=== PATIENT | female | born 1950 | race Caucasian/White ===

== ENCOUNTER 2018-04-28 17:20 | Inpatient (IN) | payer MEDICARE, BC ==
--- NOTE | 2018-04-28 18:48 | ED ---
Extremity Problem HPI - General Chief complaint: Extremity Problem,Nontraumatic Stated complaint: Feet swelling Time Seen by Provider: 04/28/18 17:47 Source: patient Mode of arrival: ambulatory Limitations: no limitations - History of Present Illness Initial comments: 68-year-old female patient with past medical history significant for oxygen dependent COPD, hypertension, and rheumatoid arthritis, presents to the emergency department today for evaluation of bilateral lower extremity edema. Patient states that she has had trouble with swelling for quite some time however over the last 2-3 days it has gotten much worse. She denies any weeping or wounds to her legs. She denies any calf pain. States she has also had an increase in weakness, she was unable to get up from her chair this afternoon and had to crawl to the couch. 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 De La Vega who instructed her to present to the emergency department for admission. Patient did take 20 mg of Lasix prior to arrival. Patient states she's also had increase in shortness of breath. She denies any cough or congestion. She denies any fever or chills. Patient denies any recent rash, chest pain, abdominal pain, nausea, vomiting, diarrhea, constipation, back pain, numbness, tingling, dizziness, hematuria, dysuria, urinary urgency, urinary frequency, headache, visual changes, or any other complaints. - Related Data Home Medications Medication Instructions Recorded Confirmed Carvedilol [Coreg] 12.5 mg PO BID 08/12/14 04/28/18 HYDROcodone/APAP 5-325MG [[place] 1 tab PO QID 08/24/15 04/28/18 5-325] Spironolactone-Hctz 25-25Mg 1 tab PO DAILY 08/24/15 04/28/18 [Aldactazide 25-25 MG] Furosemide [Lasix] 20 mg PO DAILY PRN 11/22/15 04/28/18 Albuterol Nebulized [Ventolin 2.5 mg INHALATION RT-BID 01/18/16 04/28/18 Nebulized] Albuterol Sulfate [Proair Hfa] 2 puff INHALATION RT-QID PRN 01/18/16 04/28/18 Budesonide [Pulmicort] 0.5 mg INHALATION RT-BID 01/18/16 04/28/18 Cholecalciferol [Vitamin D3] 2,000 unit PO DAILY 01/18/16 04/28/18 Cyanocobalamin [Vitamin B-12] 1,000 mcg PO DAILY 01/18/16 04/28/18 Formoterol Fumarate [Perforomist] 20 mcg INHALATION RT-BID 01/18/16 04/28/18 Mucinex Fast-Max D M 1 dose PO QID PRN 01/18/16 04/28/18 Tiotropium 18 Mcg/Puff [Spiriva] 1 cap INHALATION RT-DAILY 01/18/16 04/28/18 Theophylline 24 Hour [Andi-24] 300 mg PO DAILY 05/12/16 04/28/18 Ipratropium-Albuterol Nebulize 3 ml INHALATION RT-BID PRN 04/28/18 04/28/18 [Duoneb 0.5 mg-3 mg/3 ml Soln] LORazepam [Ativan] 1 mg PO BID PRN 04/28/18 04/28/18 Metolazone [Zaroxolyn] 2.5 mg PO DAILY 04/28/18 04/28/18 Multivitamins, Thera [Multivitamin 1 tab PO DAILY 04/28/18 04/28/18 (formulary)] Tofacitinib Citrate [Xeljanz Xr] 11 mg PO DAILY 04/28/18 04/28/18 Previous Rx's Medication Instructions Recorded Ipratropium Nebulized [Atrovent 0.5 mg INHALATION RT-QID #120 nebu 08/21/14 Nebulized] Gabapentin [Neurontin] 300 mg PO TID cap 05/18/15 Potassium Chloride ER [K-Dur 20] 20 meq PO DAILY tab.er.prt 05/18/15 Pravastatin Sodium [Pravachol] 40 mg PO HS tab 05/18/15 Allergies Allergy/AdvReac Type Severity Reaction Status Date / Time benazepril HCl AdvReac Confusion Verified 05/11/16 20:31 [From Lotensin] morphine AdvReac Nausea & Verified 05/11/16 20:31 Vomiting Review of Systems ROS Statement: Those systems with pertinent positive or pertinent negative responses have been documented in the HPI. ROS Other: All systems not noted in ROS Statement are negative. Past Medical History Past Medical History: COPD, Hyperlipidemia, Hypertension, Osteoarthritis (OA), Rheumatoid Arthritis (RA) Additional Past Medical History / Comment(s): home o2 2 liters n/c, pt stated was told by not walk > 25 ft without her o2 on.past broke rt wrist, catatracts natalie, bronchitis, emphysema, skin cancer lt upper arm History of Any Multi-Drug Resistant Organisms: None Reported Past Surgical History: Appendectomy, Back Surgery, Section, Tubal Ligation Additional Past Surgical History / Comment(s): colonoscopy. natalie breast bx-neg, microlarygoscopy x3, back fusion w/hardware, natalie bunionectomy,skin ca removed lt upper arm ,hammer toe sx has screw in great toe,rt hand joint replacment to index finger and fusions to index and 4th finger, lt hand thumb joint replaced and fusion to first 2 finger tips. orif rt wrist has plate screw. Past Anesthesia/Blood Transfusion Reactions: No Reported Reaction Past Psychological History: No Psychological Hx Reported Smoking Status: Former smoker Past Alcohol Use History: None Reported Past Drug Use History: None Reported - Past Family History Mother Additional Family Medical History / Comment(s): aterscolerotic disease; Father Additional Family Medical History / Comment(s): of car accident Sister(s) Additional Family Medical History / Comment(s): breast cancer in 2013 with remission General Exam Limitations: no limitations General appearance: alert, in no apparent distress, other (Physical well- developed, well-nourished elderly female patient in no acute distress. Vital signs upon presentation are temperature 98.6F, pulse 88, respirations 18, blood pressure 157/94, pulse ox 97% on room air.) Eye exam: Present: normal appearance, PERRL, EOMI. Absent: scleral icterus, conjunctival injection, periorbital swelling ENT exam: Present: normal exam, normal oropharynx, mucous membranes moist Respiratory exam: Present: normal lung sounds bilaterally. Absent: respiratory distress, wheezes, rales, rhonchi, stridor Cardiovascular Exam: Present: regular rate, normal rhythm, normal heart sounds. Absent: systolic murmur, diastolic murmur, rubs, gallop, clicks GI/Abdominal exam: Present: soft, normal bowel sounds. Absent: distended, tenderness, guarding, rebound, rigid Neurological exam: Present: alert, oriented X3, CN II-XII intact Psychiatric exam: Present: normal affect, normal mood Skin exam: Present: warm, dry, intact, normal color. Absent: rash Expanded 1 - Stage I pressure ulcer, non-blanchable erythema to bilateral medial buttocks. Course Vital Signs 04/28/18 04/28/18 04/28/18 17:25 19:29 20:46 Temperature 98.6 F Pulse Rate 88 74 76 Respiratory 18 18 Rate Blood Pressure 157/94 169/102 O2 Sat by Pulse 97 98 Oximetry 04/28/18 21:00 Temperature Pulse Rate 78 Respiratory Rate Blood Pressure O2 Sat by Pulse Oximetry Medical Decision Making - Medical Decision Making 68-year-old female patient presented to the emergency department today for evaluation of increased lower extremity edema and increasing dyspnea. Physical examination did reveal 4+ pitting edema to the bilateral lower extremities and feet. Patient does have ecchymosis to the right lower leg and foot. Patient denies injury. Denies any calf pain. Patient is afebrile with no signs of cellulitis. Labs reviewed and are relatively unremarkable. Patient was sent in by Dr. Bauer in for admission. My attending Dr. Bean did discuss the case with Dr. Santamaria who accepts admission. We'll give patient 40 mg of Lasix IV push now and start her on 40 mg twice daily by mouth. Legs up and wrapped with Neel wraps. Also of note patient does have presence of a stage I pressure ulcer to the bilateral medial buttocks present on admission. - Lab Data Result diagrams: 04/28/18 18:57 04/28/18 18:57 Lab Results 04/28/18 04/28/18 04/28/18 Range/Units 18:57 18:57 18:57 WBC 9.5 (3.8-10.6) k/uL RBC 4.08 (3.80-5.40) m/uL Hgb 13.0 (11.4-16.0) gm/dL Hct 40.1 (34.0-46.0) % MCV 98.1 (80.0-100.0) fL MCH 31.8 (25.0-35.0) pg MCHC 32.4 (31.0-37.0) g/dL RDW 14.6 (11.5-15.5) % Plt Count 264 (150-450) k/uL Neutrophils % 76 % Lymphocytes % 14 % Monocytes % 8 % Eosinophils % 0 % Basophils % 0 % Neutrophils # 7.2 (1.3-7.7) k/uL Lymphocytes # 1.3 (1.0-4.8) k/uL Monocytes # 0.7 (0-1.0) k/uL Eosinophils # 0.0 (0-0.7) k/uL Basophils # 0.0 (0-0.2) k/uL ESR 16 (0-20) mm/hr PT (9.0-12.0) sec INR (<1.2) APTT (22.0-30.0) sec Sodium 138 (137-145) mmol/L Potassium 4.2 (3.5-5.1) mmol/L Chloride 96 L (98-107) mmol/L Carbon Dioxide 36 H (22-30) mmol/L Anion Gap 6 mmol/L BUN 18 H (7-17) mg/dL Creatinine 0.56 (0.52-1.04) mg/dL Est GFR (CKD-EPI)AfAm >90 (>60 ml/min/1.73 sqM) Est GFR (CKD-EPI)NonAf >90 (>60 ml/min/1.73 sqM) Glucose 91 (74-99) mg/dL Calcium 10.1 (8.4-10.2) mg/dL Total Bilirubin 1.0 (0.2-1.3) mg/dL AST 32 (14-36) U/L ALT 40 (9-52) U/L Alkaline Phosphatase 58 (38-126) U/L Total Creatine Kinase 44 (30-135) U/L CK-MB (CK-2) 1.5 (0.0-2.4) ng/mL CK-MB (CK-2) Rel Index 3.4 Troponin I <0.012 (0.000-0.034) ng/mL NT-Pro-B Natriuret Pep pg/mL Total Protein 6.2 L (6.3-8.2) g/dL Albumin 3.7 (3.5-5.0) g/dL Urine Color Urine Appearance (Clear) Urine pH (5.0-8.0) Ur Specific Merrill (1.001-1.035) Urine Protein (Negative) Urine Glucose (UA) (Negative) Urine Ketones (Negative) Urine Blood (Negative) Urine Nitrite (Negative) Urine Bilirubin (Negative) Urine Urobilinogen (<2.0) mg/dL Ur Leukocyte Esterase (Negative) 04/28/18 04/28/18 04/28/18 Range/Units 18:57 18:57 18:57 WBC (3.8-10.6) k/uL RBC (3.80-5.40) m/uL Hgb (11.4-16.0) gm/dL Hct (34.0-46.0) % MCV (80.0-100.0) fL MCH (25.0-35.0) pg MCHC (31.0-37.0) g/dL RDW (11.5-15.5) % Plt Count (150-450) k/uL Neutrophils % % Lymphocytes % % Monocytes % % Eosinophils % % Basophils % % Neutrophils # (1.3-7.7) k/uL Lymphocytes # (1.0-4.8) k/uL Monocytes # (0-1.0) k/uL Eosinophils # (0-0.7) k/uL Basophils # (0-0.2) k/uL ESR (0-20) mm/hr PT 9.6 (9.0-12.0) sec INR 1.0 (<1.2) APTT 21.5 L (22.0-30.0) sec Sodium (137-145) mmol/L Potassium (3.5-5.1) mmol/L Chloride (98-107) mmol/L Carbon Dioxide (22-30) mmol/L Anion Gap mmol/L BUN (7-17) mg/dL Creatinine (0.52-1.04) mg/dL Est GFR (CKD-EPI)AfAm (>60 ml/min/1.73 sqM) Est GFR (CKD-EPI)NonAf (>60 ml/min/1.73 sqM) Glucose (74-99) mg/dL Calcium (8.4-10.2) mg/dL Total Bilirubin (0.2-1.3) mg/dL AST (14-36) U/L ALT (9-52) U/L Alkaline Phosphatase (38-126) U/L Total Creatine Kinase (30-135) U/L CK-MB (CK-2) (0.0-2.4) ng/mL CK-MB (CK-2) Rel Index Troponin I (0.000-0.034) ng/mL NT-Pro-B Natriuret Pep 231 pg/mL Total Protein (6.3-8.2) g/dL Albumin (3.5-5.0) g/dL Urine Color Light Yellow Urine Appearance Clear (Clear) Urine pH 7.0 (5.0-8.0) Ur Specific Merrill 1.006 (1.001-1.035) Urine Protein Negative (Negative) Urine Glucose (UA) Negative (Negative) Urine Ketones Negative (Negative) Urine Blood Negative (Negative) Urine Nitrite Negative (Negative) Urine Bilirubin Negative (Negative) Urine Urobilinogen <2.0 (<2.0) mg/dL Ur Leukocyte Esterase Negative (Negative) - EKG Data EKG Comments: EKG obtained at 1910 shows normal sinus rhythm with a ventricular rate of 69, MD interval 140, QRS duration 78, QT 374, QTC 400. No evidence of ST elevation or depression. - Radiology Data Radiology results: report reviewed, image reviewed Two-view x-ray of the chest obtained. There is no heart failure nor confluent pneumonic infiltrate. There is linear density at the right lung base. There are chest leads. Impression by Dr. Owen shows no atelectasis at the right lung base compared to old exam. No heart failure. Disposition Clinical Impression: Dyspnea, Bilateral lower extremity edema Disposition: ADMITTED IP TO THIS HOSP Condition: Serious Decision to Admit Reason: Admit from EC Decision Date: 04/28/18 Decision Time: 21:33
--- NOTE | 2018-04-28 19:30 | XR ---
EXAMINATION TYPE: XR chest 2V DATE OF EXAM: 04/28/2018 COMPARISON: 05/27/2017 HISTORY: Weakness TECHNIQUE: Frontal and lateral views of the chest are obtained. FINDINGS: There is no heart failure nor confluent pneumonic infiltrate. There is linear density at t he right lung base. There are chest leads. IMPRESSION: There is new atelectasis at the right lung base compared to old exam. No heart failure.
[2018-04-28 19:32] LABS: Basophils % (A) 0 %; Eosinophils % (A) 0 %; HCT 40.1 % (34.0-46.0); Lymphocytes # (A) 1.3 k/uL (1.0-4.8); Lymphocytes % (A) 14 %; MCH 31.8 pg (25.0-35.0); MCHC 32.4 g/dL (31.0-37.0); MCV 98.1 fL (80.0-100.0); Mean Platelet Volume 6.5; Monocytes # (A) 0.7 k/uL (0-1.0); Monocytes % (A) 8 %; Neutrophils # (A) 7.2 k/uL (1.3-7.7); Neutrophils % (A) 76 %; Platelet Count 264 k/uL (150-450); RBC 4.08 m/uL (3.80-5.40); RDW 14.6 % (11.5-15.5); WBC 9.5 k/uL (3.8-10.6)
[2018-04-28 19:38] LABS: Appearance,Urine Clear (Clear); Bilirubin,Urine Negative (Negative); Blood,Urine Negative (Negative); Color,Urine Light Yellow; Glucose,Urine (UA) Negative (Negative); Ketones,Urine Negative (Negative); Leukocyte Esterase,Urine Negative (Negative); Nitrite,Urine Negative (Negative); Protein,Urine Negative (Negative); Specific Gravity,Urine 1.006 (1.001-1.035); Urobilinogen,Urine <2.0 mg/dL (<2.0)
[2018-04-28 19:44] LABS: ALT 40 U/L (9-52); AST 32 U/L (14-36); Albumin 3.7 g/dL (3.5-5.0); Alkaline Phosphatase 58 U/L (38-126); Anion Gap 6 mmol/L; Blood Urea Nitrogen 18 mg/dL (7-17); Calcium 10.1 mg/dL (8.4-10.2); Carbon Dioxide 36 mmol/L (22-30); Chloride 96 mmol/L (98-107); Glucose 91 mg/dL (74-99); Potassium 4.2 mmol/L (3.5-5.1); Sodium 138 mmol/L (137-145); Total Protein 6.2 g/dL (6.3-8.2)
[2018-04-28 19:48] LABS: Creatine Kinase 44 U/L (30-135)
[2018-04-28 20:01] LABS: Creatine Kinase MB 1.5 ng/mL (0.0-2.4); Troponin I <0.012 ng/mL (0.000-0.034)
[2018-04-28] MEDS ORDERED: IPRATROPIUM-ALBUTEROL 3 ML NEB INHALATION STA (20:02)
[2018-04-28 20:04] LABS: Prothrombin Time 9.6 sec (9.0-12.0)
[2018-04-28 20:09] LABS: Partial Thromboplastin Time 21.5 sec (22.0-30.0)
[2018-04-28 20:29] LABS: Erythrocyte Sedimentation Rate 16 mm/hr (0-20)
[2018-04-28] MEDS ORDERED: NALOXONE 0.4 MG/ML 1 ML VIAL IV PRN (21:14)
[2018-04-28] MEDS ORDERED: guaiFENesin-DM 600/30MG 1 EACH TAB.ER.12H PO PRN (21:15)
[2018-04-28] MEDS: SODIUM CHLORIDE 0.9% 1,000 ML IV SCH (21:29)
[2018-04-28] MEDS ORDERED: GABAPENTIN 300 MG CAP PO SCH (22:00)
[2018-04-28] MEDS ORDERED: HYDROcodone/APAP 5-325MG 1 EACH TAB PO SCH (22:00)
[2018-04-28] MEDS ORDERED: FUROSEMIDE 10 MG/ML 4 ML VIAL IV STA (22:08)
[2018-04-29 00:02] VITALS: BMI 23.5
[2018-04-29] MEDS: GABAPENTIN 100 MG CAP PO SCH ×4 (00:10→20:52)
[2018-04-29] MEDS: IPRATROPIUM-ALBUTEROL 3 ML NEB INHALATION PRN ×5 (00:24→19:02)
[2018-04-29] MEDS ORDERED: ALBUTEROL NEBULIZED 2.5 MG/3 ML INHALATION SCH (08:00)
[2018-04-29] MEDS ORDERED: NON-FORMULARY DRUG (Tiotropium 18 Mcg/Puff 1 CAP) INHALATION SCH (08:00)
[2018-04-29] MEDS: HYDROcodone/APAP 5-325MG 1 EACH TAB PO PRN ×4 (08:00→20:52)
[2018-04-29] MEDS: CARVEDILOL 12.5 MG TAB PO SCH ×2 (08:01→18:18)
[2018-04-29] MEDS: FORMOTEROL FUMARATE 20 MCG/2 ML NEBU INHALATION SCH ×2 (08:43→19:02)
[2018-04-29] MEDS: BUDESONIDE 0.5 MG/2 ML NEBU INHALATION SCH ×2 (08:43→19:02)
[2018-04-29] MEDS: IPRATROPIUM 0.5 MG/2.5 ML NEBU INHALATION SCH ×4 (08:43→19:15)
[2018-04-29] MEDS ORDERED: FUROSEMIDE 40 MG TAB PO SCH (09:00)
[2018-04-29] MEDS ORDERED: GABAPENTIN 100 MG CAP PO SCH (09:00)
[2018-04-29] MEDS: FUROSEMIDE 10 MG/ML 4 ML VIAL IV SCH ×2 (10:09→20:52)
[2018-04-29] MEDS: THEOPHYLLINE 24 HOUR 300 MG CAP.ER.24H PO SCH (10:10)
[2018-04-29] MEDS: METOLAZONE 2.5 MG TAB PO SCH (10:10)
[2018-04-29] MEDS: POTASSIUM CHLORIDE ER 20 MEQ TAB.ER PO SCH (10:10)
[2018-04-29] MEDS: SPIRONOLACTONE-HCTZ 25-25MG 1 EACH TAB PO SCH (10:10)
[2018-04-29] MEDS: TOFACITINIB CITRATE 11 MG PO SCH (11:53)
[2018-04-29] MEDS: MULTIVITAMINS, THERA 1 EACH TAB PO SCH (12:11)
[2018-04-29] MEDS: CYANOCOBALAMIN 500 MCG TAB PO SCH (12:11)
[2018-04-29] MEDS: CHOLECALCIFEROL 1,000 UNIT TAB PO SCH (12:11)
--- NOTE | 2018-04-29 14:40 | P.CNPUL ---
History of Present Illness Consult date: 04/29/18 Requesting physician: Josh Santamaria Reason for consult: dyspnea Chief complaint: Shortness of breath with lower extremity edema. History of present illness: This is a very pleasant 68-year-old female patient who follows with Dr. Santamaria as her primary care physician. She has a history of hyperlipidemia, hypertension, rheumatoid arthritis. She also has a history of severe oxygen dependent chronic obstructive pulmonary disease and follows with Dr. De La Vega in our office for the same. She has been maintained on Pulmicort and Perforomist inhalations, Spiriva, albuterol. Plan oxygen at 2 L/m per nasal cannula. She presented to the office yesterday as a regular appointment. Prior to that she been having ongoing issues with swelling in her lower edema lower extremities more so in her feet and ankles. She knew she had an appointment so she did not seek attention earlier. Upon arrival she had significant edema and weeping with evidence of cellulitis. Her breathing had been about the same. No excessive wheezing or chest tightness. She had been on Lasix and Zaroxolyn but had run out of her medications recently. She is seen today in consultation on the regular medical floor. She is awake and alert in no acute distress. She is having ongoing issues with lower extremity edema. They're now Neel wraps applied. Edema slightly improved. Chest x-ray shows new atelectasis of the right lung base. She's been initiated on Lasix 40 mg IV push every 12 hours. White count 9.5. Hemoglobin 13.0. Creatinine 0.56. Urinalysis negative. Review of Systems Constitutional: Reports chronic pain, Reports fatigue, Reports poor appetite, Reports weakness Eyes: bilateral decreased vision Ears: bilateral: decreased hearing Ears, nose, mouth and throat: Denies headache, Denies sore throat Cardiovascular: Reports dyspnea on exertion, Reports leg edema, Reports shortness of breath Respiratory: Reports dyspnea, Reports home oxygen Gastrointestinal: Denies abdominal pain, Denies diarrhea, Denies nausea, Denies vomiting Genitourinary: Denies dysuria, Denies hematuria Musculoskeletal: Reports gait dysfunction, Reports limitation of motion, Reports loss of height, Reports low back pain Musculoskeletal: bilateral: ankle pain, ankle swelling Integumentary: Reports color changes Neurological: Reports balance difficulties, Reports gait dysfunction, Reports weakness Psychiatric: Reports anxiety Endocrine: Denies fatigue, Denies weight change Hematologic/Lymphatic: Reports as per HPI Allergic/Immunologic: Reports as per HPI Past Medical History Past Medical History: COPD, Hyperlipidemia, Hypertension, Osteoarthritis (OA), Rheumatoid Arthritis (RA) Additional Past Medical History / Comment(s): home o2 2 liters n/c, pt stated was told by not walk > 25 ft without her o2 on.past broke rt wrist, catatracts natalie, bronchitis, emphysema, skin cancer lt upper arm History of Any Multi-Drug Resistant Organisms: None Reported Past Surgical History: Appendectomy, Back Surgery, Section, Tubal Ligation Additional Past Surgical History / Comment(s): colonoscopy. natalie breast bx-neg, microlarygoscopy x3, back fusion w/hardware, natalie bunionectomy,skin ca removed lt upper arm ,hammer toe sx has screw in great toe,rt hand joint replacment to index finger and fusions to index and 4th finger, lt hand thumb joint replaced and fusion to first 2 finger tips. orif rt wrist has plate screw. 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 Smoking Status: Former smoker Past Alcohol Use History: None Reported Additional Past Alcohol Use History / Comment(s): quit smoking , smoked > 40 years Past Drug Use History: None Reported - Past Family History Mother Additional Family Medical History / Comment(s): aterscolerotic disease; Father Additional Family Medical History / Comment(s): of car accident Sister(s) Additional Family Medical History / Comment(s): breast cancer in 2012 with remission Medications and Allergies Home Medications Medication Instructions Recorded Confirmed Type Carvedilol [Coreg] 12.5 mg PO BID 08/12/14 04/28/18 History Ipratropium Nebulized [Atrovent 0.5 mg INHALATION RT-QID #120 nebu 08/21/1405/06 Rx Nebulized] Gabapentin [Neurontin] 300 mg PO TID cap 05/18/15 04/28/18 Rx Potassium Chloride ER [K-Dur 20] 20 meq PO DAILY tab.er.prt 05/18/15 04/28/18 Rx Pravastatin Sodium [Pravachol] 40 mg PO HS tab 05/18/15 04/28/18 Rx HYDROcodone/APAP 5-325MG [[place] 1 tab PO QID 08/24/15 04/28/18 History 5-325] Spironolactone-Hctz 25-25Mg 1 tab PO DAILY 08/24/15 04/28/18 History [Aldactazide 25-25 MG] Furosemide [Lasix] 20 mg PO DAILY PRN 11/22/15 04/28/18 History Albuterol Nebulized [Ventolin 2.5 mg INHALATION RT-BID 01/18/16 04/28/18 History Nebulized] Albuterol Sulfate [Proair Hfa] 2 puff INHALATION RT-QID PRN 01/18/16 04/28/18 History Budesonide [Pulmicort] 0.5 mg INHALATION RT-BID 01/18/16 04/28/18 History Cholecalciferol [Vitamin D3] 2,000 unit PO DAILY 01/18/16 04/28/18 History Cyanocobalamin [Vitamin B-12] 1,000 mcg PO DAILY 01/18/16 04/28/18 History Formoterol Fumarate [Perforomist] 20 mcg INHALATION RT-BID 01/18/16 04/28/18 History Mucinex Fast-Max D M 1 dose PO QID PRN 01/18/16 04/28/18 History Tiotropium 18 Mcg/Puff [Spiriva] 1 cap INHALATION RT-DAILY 01/18/16 04/28/18 History Theophylline 24 Hour [Andi-24] 300 mg PO DAILY 05/12/16 04/28/18 History Ipratropium-Albuterol Nebulize 3 ml INHALATION RT-BID PRN 04/28/18 04/28/18 History [Duoneb 0.5 mg-3 mg/3 ml Soln] LORazepam [Ativan] 1 mg PO BID PRN 04/28/18 04/28/18 History Metolazone [Zaroxolyn] 2.5 mg PO DAILY 04/28/18 04/28/18 History Multivitamins, Thera [Multivitamin 1 tab PO DAILY 04/28/18 04/28/18 History (formulary)] Tofacitinib Citrate [Xeljanz Xr] 11 mg PO DAILY 04/28/18 04/28/18 History Allergies Allergy/AdvReac Type Severity Reaction Status Date / Time benazepril HCl AdvReac Confusion Verified 05/11/16 20:31 [From Lotensin] morphine AdvReac Nausea & Verified 05/11/16 20:31 Vomiting Physical Exam Vitals: Vital Signs Temp Pulse Pulse Resp BP BP Pulse Ox 04/29/18 12:20 80 04/29/18 12:03 76 04/29/18 10:09 71 112/77 04/29/18 09:22 84 04/29/18 09:00 80 04/29/18 08:43 80 04/29/18 08:05 98.2 F 71 20 120/83 96 04/29/18 04:21 84 04/29/18 04:05 84 04/29/18 03:24 77 20 04/29/18 00:39 84 04/29/18 00:25 76 04/28/18 23:12 98.6 F 04/28/18 23:00 98.4 F 77 20 149/89 98 04/28/18 22:29 103 H 20 175/95 95 04/28/18 21:00 78 04/28/18 20:46 76 04/28/18 19:29 74 18 169/102 98 04/28/18 17:25 98.6 F 88 18 157/94 97 Intake and Output 04/28/18 04/29/18 04/29/18 22:59 06:59 14:59 Intake Total 120 Output Total 720 2400 1750 Balance -720 2400 -1630 Intake: Oral 120 Output: Urine 720 2400 1750 Other: Voiding Method Bedside Commode Bedside Commode # Voids 5 5 # Bowel Movements 1 Weight 58.06 kg 56.5 kg - Constitutional General appearance: cooperative, mild distress, thin - EENT Eyes: EOMI, PERRLA ENT: hard of hearing Ears: bilateral: normal - Neck Neck: normal ROM Carotids: bilateral: upstroke normal Thyroid: bilateral: normal size - Respiratory Respiratory: bilateral: CTA, diminished - Cardiovascular Rhythm: regular Heart sounds: normal: S1, S2 - Gastrointestinal General gastrointestinal: normal bowel sounds - Genitourinary Voiding without difficulty - Integumentary Integumentary: cellulitis - Neurologic Neurologic: CNII-XII intact - Musculoskeletal Musculoskeletal: generalized weakness - Psychiatric Psychiatric: A&O x's 3, appropriate affect, intact judgment & insight Results - Laboratory Findings CBC and BMP: 04/28/18 18:57 04/28/18 18:57 PT/INR, D-dimer PT 9.6 sec (9.0-12.0) 04/28/18 18:57 INR 1.0 (<1.2) 04/28/18 18:57 Abnormal lab findings: Abnormal Labs 04/28/18 04/28/18 18:57 18:57 APTT 21.5 L Chloride 96 L Carbon Dioxide 36 H BUN 18 H Total Protein 6.2 L - Diagnostic Findings Chest x-ray: image reviewed Assessment and Plan Assessment: Impression: #1 Lower extremity peripheral edema with suspected cellulitis suspect secondary to acute exacerbation of diastolic congestive heart failure/cor pulmonale secondary to severe chronic obstructive pulmonary disease and chronic hypoxic respiratory failure. #2 Severe, oxygen dependent chronic obstructive pulmonary disease, currently inactive and stable. #3 History of chronic tobacco dependence. #4 Rheumatoid arthritis. #5 Anxiety disorder. #6 Hyperlipidemia. #7 Hypertension. Plan: The patient was seen and evaluated by Dr. Bueno. Chest x-ray was reviewed. We 'll go ahead and obtain an echocardiogram to determine if any right or left ventricular dysfunction. Continue IV diuretics. Add cefazolin for suspected cellulitis. Doppler of the lower extremities. Continue with Neel wraps to the bilateral lower extremities. Heparin for DVT prophylaxis. We will continue to monitor and make further recommendations based on her clinical status. I, the cosigning physician, performed a history & physical examination of the patient. Lungs sounds are clear, diminished. Maintaining good O2 saturations in the 90s on 2 L/m per nasal cannula. I discussed the assessment and plan of care with my nurse practitioner, Chula Varma. I attest to the above note as dictated by her. Time with Patient: Greater than 30
[2018-04-29] MEDS ORDERED: HEPARIN SODIUM,PORCINE 5,000 UNIT/ML 1 ML VIAL SQ SCH (16:00)
[2018-04-29] MEDS: ceFAZolin 1,000 MG in DEXTROSE/WATER 1 50ML.BAG IVPB SCH (16:09)
--- NOTE | 2018-04-29 17:15 | US ---
EXAMINATION TYPE: US venous doppler duplex LE DATE OF EXAM: 04/29/2018 5:02 PM COMPARISON: NONE CLINICAL HISTORY: edema. SIDE PERFORMED: Bilateral TECHNIQUE: The lower extremity deep venous system is examined utilizing real time linear array sonog didi with graded compression, doppler sonography and color-flow sonography. VESSELS IMAGED: External Iliac Vein (EIV) Common Femoral Vein Deep Femoral Vein Greater Saphenous Vein * Femoral Vein Popliteal Vein Small Saphenous Vein * Proximal Calf Veins (* superficial vessels) Right Leg: Negative for DVT. Positive for SVT in the small saphenous vein Left Leg: Negative for DVT IMPRESSION: There is limited superficial venous thrombus in the short saphenous vein. No evidence of deep venous thrombosis in both legs.
[2018-04-29] MEDS: methylPREDNISolone SOD SUCCI 40 MG/ML 1 ML VIAL IV SCH ×2 (18:18→23:20)
[2018-04-29] MEDS: ONDANSETRON 4 MG/2 ML VIAL IVP PRN ×2 (18:18→23:20)
--- NOTE | 2018-04-29 18:43 | ECHOF ---
Referral Reason:chf MEASUREMENTS -------- HEIGHT: 152.4 cm WEIGHT: 56.3 kg BP: IVSd: 1.1 cm (0.6 - 1.1) LVIDd: 3.3 cm (3.9 - 5.3) LVPWd: 1.0 cm (0.6 - 1.1) IVSs: 1.6 cm LVIDs: 2.8 cm LVPWs: 1.6 cm LA Diam: 3.6 cm (2.7 - 3.8) LAESV Index (A-L): 25.01 ml/m Ao Diam: 2.8 cm (2.0 - 3.7) AV Cusp: 0.8 cm (1.5 - 2.6) LA Diam: 3.9 cm (2.7 - 3.8) MV EXCURSION: 17.354 mm (> 18.000) MV EF SLOPE: 126 mm/s (70 - 150) EPSS: 0.6 cm MV E Kalyan: 0.45 m/s MV A Kalyan: 1.11 m/s MV E/A Ratio: 0.41 RAP: 5.00 mmHg RVSP: 17.44 mmHg FINDINGS -------- Sinus rhythm. This was a technically adequate study. LV size, wall thickness and systolic function are normal, with an EF greater than 55%. The left la tricular size is normal. The right ventricle is normal in size. The left atrial size is normal. The right atrial size is normal. There is mild aortic valve sclerosis. There is no evidence of aortic regurgitation. Mild mitral annular calcification present. Mild mitral regurgitation is present. Mild tricuspid regurgitation present. There is no evidence of pulmonary hypertension. The right v entricular systolic pressure, as measured by Doppler, is 17.44mmHg. Trace/mild (physiologic) pulmonic regurgitation. The aortic root size is normal. There is no pericardial effusion. CONCLUSIONS -------- 1. LV size, wall thickness and systolic function are normal, with an EF greater than 55%. 2. The left ventricular size is normal. 3. The right ventricle is normal in size. 4. The left atrial size is normal. 5. The right atrial size is normal. 6. There is mild aortic valve sclerosis. 7. Mild mitral annular calcification present. 8. Mild mitral regurgitation is present. 9. Mild tricuspid regurgitation present. 10. There is no evidence of pulmonary hypertension. 11. The right ventricular systolic pressure, as measured by Doppler, is 17.44mmHg. 12. Trace/mild (physiologic) pulmonic regurgitation. 13. The aortic root size is normal. 14. There is no pericardial effusion. GR[employer] POLISHER: Kayy Shukla RDCS
[2018-04-29] MEDS ORDERED: DILTIAZEM DRIP BOLUS FROM BAG 1 MG SOLN IV ONE (19:35)
[2018-04-29] MEDS ORDERED: DILTIAZEM 50 MG in SODIUM CHLORIDE 0.9% 40 ML IV SCH (19:45)
[2018-04-29] MEDS: PRAVASTATIN SODIUM 40 MG TAB PO SCH (21:34)
[2018-04-29] MEDS: APIXABAN 5 MG TAB PO SCH (21:59)
[2018-04-29] MEDS: SODIUM CHLORIDE 0.9% 1,000 ML IV SCH (22:00)
--- NOTE | 2018-04-29 23:47 | HP ---
HISTORY AND PHYSICAL ATTENDING PHYSICIAN: Dr. Ladarius Santamaria. CHIEF COMPLAINT: Shortness of breath and tachycardia. HISTORY OF PRESENT ILLNESS: This 68-year-old lady was admitted to the hospital under observation because of increased edema of the lower legs. The hourly caregiver saw the patient and decided to put the patient on steroids and antibiotics. The patient has no true evidence of bronchitis. The patient later today did become more tachycardic. On telemetry, she has at times episodes of multifocal atrial tachycardia and other times atrial fibrillation. The patient in view of this is transferred to telemetry, started on Eliquis and Cardizem drip. The patient was doing seen regarding this. She denied any chest pain, headaches. The patient, at the time of my evaluation, just finished having an updraft RF. Lung flows reveals significant decrease generalized airflow. Otherwise vitals stable. For details of past medical history, social history, surgical history, family medical history, present medications is as dictated earlier H and P for observation. PHYSICAL EXAMINATION: Chronically appearing 68-year-old who appears older than stated age, with Cushingoid features. Vital signs reveals temperature 97.3, pulse 95, respirations 18, blood pressure 130/69. The patient, when seen, her heart rate was 198 at times. On telemetry, she is reported to have caught up to 150. REVIEW OF SYSTEMS: Neuro: Denies any headaches or dizziness. Psych: Some anxiety. Cardiovascular: Denies chest pain. Respiratory: Present complaint of shortness of breath, chronic cough. No hemoptysis. GI no nausea, vomiting, abdominal pain, diarrhea. no dysuria, hematuria, urgency, frequency. Extremities: Significantly decreased edema. Constitutional: No fever or chills. PHYSICAL EXAMINATION: 68-year-old, pleasant, mildly short of breath, in otherwise no distress. HEENT: Normocephalic. Neck no JVD. Chest generalized decreased air flow. No wheezing or rhonchi. Cardiac: Distant cough. S1, S2 with no gallop. Systolic murmur 2/6 left sternal border. Irregularly, irregular rhythm. ABDOMEN: Soft. No palpable masses. Bowel sounds normal. EXTREMITIES revealed edema. NEUROLOGICAL: Awake, alert, oriented, well-coordinated movements. LAB ASSESSMENT: With an echocardiogram done earlier, which reveals no evidence of any right-sided heart failure. The patient's venous duplex studies of the lower extremities reveals no evidence of DVT. ASSESSMENT: 1. Chronic obstructive pulmonary disease with exacerbation. 2. Chronic respiratory failure. 3. Edema lower extremities, probably related to steroid use and Neurontin. Poor compliance with Lasix. PLAN: Continue present medical regimen. The patient is admitted to telemetry. Anticoagulation. Patient will be placed on Cardizem drip to control heart rate. The patient's condition discussed with the patient. Prognosis is guarded. Thus, the patient is clearly at a point that she should not be living alone. She should be in a foster care setting. This is discussed with the patient. Prognosis guarded. MMODL / IJN: [id number] /
[2018-04-30] MEDS: ceFAZolin 1,000 MG in DEXTROSE/WATER 1 50ML.BAG IVPB SCH ×4 (00:04→23:36)
--- NOTE | 2018-04-30 00:26 | HP ---
HISTORY AND PHYSICAL ATTENDING PHYSICIAN: Dr. Ladarius Santamaria. CHIEF COMPLAINT: Swelling, lower legs. HISTORY OF PRESENT ILLNESS: This 68-year-old female was sent to the emergency room for admission from the pulmonary office but Dr. De La Vega because the patient was having increased edema of the lower legs. The patient has basically a history of significant COPD, stage IV. The patient has clinical evidence of cor pulmonale. Because of the significant swollen feet and legs, she is admitted to the hospital under observation. The patient was started on IV diuretics with improvement with the edema this morning. The patient, as mentioned above, has significant COPD. She is on steroids as well as she is on Neurontin for chronic pain. The patient's edema is probably contributory because of that. The patient had no fevers or chills. She had cough as usual. Denied any other worsening of symptoms of shortness of breath. PAST MEDICAL HISTORY: Significant for advanced COPD with previous history of heavy smoking. She is a nonsmoker at present. History of rheumatoid arthritis on medical therapy. The patient also has a history of hypertension. No history of any liver disease, kidney disease, ulcers, TB, hepatitis. No history of any rheumatic fever, myocardial infarction, CVA. PAST SURGICAL HISTORY: Significant for appendectomy, lumbar surgery, foot surgery, breast biopsy. SOCIAL HISTORY: Patient is . She lives alone. FAMILY MEDICAL HISTORY: The patient has a sister with degenerative arthritis. She also had an aunt with a history of carcinoma of the breast and COPD. The patient had 1 and the child was given up for adoption. PERSONAL HISTORY: Ex-smoker, heavy for many years. Alcohol none. ALLERGIES: BENAZEPRIL which causes her to have a cough. MORPHINE causes nausea and vomiting. MEDICATIONS: At present include: 1. Xeljanz 11 mg daily. 2. Multivitamins daily. 3. Zaroxolyn 2.5 mg daily. 4. Zaroxolyn 2.5 mg daily. 5. Updrafts with DuoNeb. 6. Spiriva. 7. Theophylline 24, 10 mg daily. 8. Aldactazide 25/25 one daily. 9. Pravastatin 40 mg daily. 10.Potassium 20 mEq daily. 11.Mucinex q.i.d. p.r.n. 12.Ativan 1 p.o. b.i.d. p.r.n. 13.[place] 5/325 p.r.n. q.i.d. 14.Gabapentin 300 mg t.i.d. 15.Lasix 20 mg daily, which the patient does not take daily because she has to use the bathroom quite frequently. 16.Perforomist 20 mcg inhalation b.i.d. 17.Vitamin B12 on a regular basis. 18.Vitamin D3. 19.Coreg 12.5 mg b.i.d. 20.Pulmicort updrafts b.i.d. 21.Albuterol p.r.n. 22.ProAir 2 puffs q.i.d. p.r.n. REVIEW OF SYSTEMS: NEURO: Denies any headaches or dizziness. No double vision or blurred vision. No symptoms of TIA, syncope, seizures. PSYCH: No anxiety. CARDIAC: Denies chest pain, angina, palpitations. RESPIRATORY: Chronic shortness of breath. Chronic cough. No hemoptysis. GI: No nausea, vomiting, abdominal pain, diarrhea. : No symptoms of dysuria, hematuria, urgency, frequency. EXTREMITIES: Significant edema. CONSTITUTIONAL: No fever or chills. PHYSICAL EXAMINATION: This is a 68-year-old female, appears older than stated age and appears chronically ill. She has cushingoid features. Vital signs reveal temperature 98.2, pulse 71, respirations 20, blood pressure 120/83, pulse ox 96% on 2 L. HEENT: Normocephalic. NECK: No JVD. Pupils are reactive. Nostrils are clear. Oral cavity is moist. EARS: No drainage. NECK: No JVD or carotid bruits. CHEST: Increased percussion note bilaterally with generalized decrease of air flow. Occasional expiratory wheeze. CARDIAC: Distant heart sounds. S1, S2 with no gallop. Systolic murmur 2/6 left sternal border. ABDOMEN: Protuberant, soft. Bowel sounds are active. EXTREMITIES: Pitting edema until the knee joints. The patient has no tenderness. SKIN: Evidence of ecchymosis, especially in the thigh area. NEUROLOGIC: Awake, alert, oriented x3 with well-coordinated movements. MUSCULOSKELETAL: Evidence suggestive of rheumatoid arthritis. LAB ASSESSMENT: CBC was normal. PT and INR normal. Electrolytes reveal a CO2 content of 36, BUN 18, creatinine 0.56. Hepatic function normal. Troponins negative. BNP is normal at 231. Albumin normal at 3.7. Urinalysis is unremarkable. ASSESSMENT: 1. Dependent edema of the lower extremities, multifactorial including medications with steroids and gabapentin as well as suspect underlying cor pulmonale. 2. Chronic obstructive pulmonary disease with chronic respiratory failure. 3. Hypertension. 4. Rheumatoid arthritis. PLAN: The patient is admitted to the hospital. Will be diuresed with Lasix. The patient meanwhile will be continued on present medications. Pulmonary consult. MMODL / IJN: [id number] /
[2018-04-30] MEDS: ALBUTEROL NEBULIZED 2.5 MG/3 ML INHALATION PRN ×2 (01:55→05:57)
[2018-04-30] MEDS: LORazepam 1 MG TAB PO PRN (03:21)
[2018-04-30] MEDS: HYDROcodone/APAP 5-325MG 1 EACH TAB PO PRN ×5 (05:05→20:22)
[2018-04-30 06:08] LABS: Glucose,Whole Blood 182 mg/dL (75-99)
[2018-04-30] MEDS: CARVEDILOL 12.5 MG TAB PO SCH (06:09)
[2018-04-30] MEDS: ONDANSETRON 4 MG/2 ML VIAL IVP PRN ×4 (06:27→23:36)
[2018-04-30 06:34] LABS: Anion Gap 13 mmol/L; Blood Urea Nitrogen 21 mg/dL (7-17); Calcium 10.3 mg/dL (8.4-10.2); Carbon Dioxide 36 mmol/L (22-30); Chloride 81 mmol/L (98-107); Glucose 180 mg/dL (74-99); Magnesium 1.1 mg/dL (1.6-2.3); Sodium 130 mmol/L (137-145)
[2018-04-30] MEDS ORDERED: Magnesium Replacement Protocol 1 EACH MISC MISCELLANE PRN (06:44)
[2018-04-30] MEDS ORDERED: Potassium Replacement Protocol 1 EACH MISC MISCELLANE PRN (06:44)
[2018-04-30] MEDS: INSULIN ASPART 100 UNIT/ML 1 ML 10 ML VIAL SQ SCH ×4 (06:49→21:29)
[2018-04-30] MEDS ORDERED: POTASSIUM CHLORIDE ER 20 MEQ TAB.ER PO SCH (07:00)
[2018-04-30] MEDS: MAGNESIUM SULFATE-D5W PMX 1 GM in DEXTROSE/WATER 1 100ML.BAG IVPB SCH ×2 (08:17→14:06)
[2018-04-30] MEDS: POTASSIUM CHLORIDE ER 20 MEQ TAB.ER PO SCH (08:41)
[2018-04-30] MEDS: METOLAZONE 2.5 MG TAB PO SCH (08:42)
[2018-04-30] MEDS: THEOPHYLLINE 24 HOUR 300 MG CAP.ER.24H PO SCH (08:42)
[2018-04-30] MEDS: methylPREDNISolone SOD SUCCI 40 MG/ML 1 ML VIAL IV SCH ×3 (08:42→23:36)
[2018-04-30] MEDS: GABAPENTIN 100 MG CAP PO SCH ×3 (08:42→20:26)
[2018-04-30] MEDS: FUROSEMIDE 10 MG/ML 4 ML VIAL IV SCH (08:43)
[2018-04-30] MEDS: SPIRONOLACTONE-HCTZ 25-25MG 1 EACH TAB PO SCH (08:43)
[2018-04-30] MEDS: APIXABAN 5 MG TAB PO SCH ×2 (08:44→20:23)
[2018-04-30] MEDS: BUDESONIDE 0.5 MG/2 ML NEBU INHALATION SCH ×2 (08:53→20:33)
[2018-04-30] MEDS: FORMOTEROL FUMARATE 20 MCG/2 ML NEBU INHALATION SCH ×2 (08:53→20:33)
[2018-04-30] MEDS: IPRATROPIUM-ALBUTEROL 3 ML NEB INHALATION PRN ×4 (08:53→20:34)
[2018-04-30] MEDS: IPRATROPIUM 0.5 MG/2.5 ML NEBU INHALATION SCH ×4 (08:53→20:36)
[2018-04-30] MEDS: TOFACITINIB CITRATE 11 MG PO SCH (11:01)
[2018-04-30 11:53] LABS: Glucose,Whole Blood 212 mg/dL (75-99)
[2018-04-30] MEDS: MULTIVITAMINS, THERA 1 EACH TAB PO SCH (13:57)
[2018-04-30] MEDS: CHOLECALCIFEROL 1,000 UNIT TAB PO SCH (13:57)
[2018-04-30] MEDS: CYANOCOBALAMIN 500 MCG TAB PO SCH (13:57)
--- NOTE | 2018-04-30 14:19 | P.PN ---
Subjective Progress Note Date: 04/30/18 Principal diagnosis: This is a very pleasant 68-year-old female patient who follows with Dr. Santamaria as her primary care physician. She has a history of hyperlipidemia, hypertension, rheumatoid arthritis. She also has a history of severe oxygen dependent chronic obstructive pulmonary disease and follows with Dr. De La Vega in our office for the same. She has been maintained on Pulmicort and Perforomist inhalations, Spiriva, albuterol. Plan oxygen at 2 L/m per nasal cannula. She presented to the office yesterday as a regular appointment. Prior to that she been having ongoing issues with swelling in her lower edema lower extremities more so in her feet and ankles. She knew she had an appointment so she did not seek attention earlier. Upon arrival she had significant edema and weeping with evidence of cellulitis. Her breathing had been about the same. No excessive wheezing or chest tightness. She had been on Lasix and Zaroxolyn but had run out of her medications recently. She is seen today in consultation on the regular medical floor. She is awake and alert in no acute distress. She is having ongoing issues with lower extremity edema. They're now Neel wraps applied. Edema slightly improved. Chest x-ray shows new atelectasis of the right lung base. She's been initiated on Lasix 40 mg IV push every 12 hours. White count 9.5. Hemoglobin 13.0. Creatinine 0.56. Urinalysis negative. The patient is seen again today 04/30/2018 in follow-up on the selective care unit. She was brought up here from the regular medical floor with concerns regarding possible atrial fibrillation. 12-lead EKG reveals normal sinus rhythm. Echocardiogram reveals preserved left ventricular systolic function with ejection fraction 55%. No evidence of pulmonary hypertension. Normal right ventricle. Dopplers of the lower extremity were negative for DVT. Really , she is resting fairly comfortably in bed. She still has significant dyspnea on minimal exertion. She is maintaining good O2 saturation in the 90s on 2 L/m per nasal cannula. She is continued on DuoNeb inhalations, Pulmicort and Perforomist inhalations, IV Solu-Medrol. She remains on diuretics. She is down 3 kg. Remains in a negative balance. Peripheral edema improving. Objective - Vital Signs Vital signs: Vital Signs Temp 97.3 F L 04/30/18 03:04 Pulse 92 04/30/18 13:15 Resp 18 04/30/18 03:09 BP 127/83 04/30/18 03:04 Pulse Ox 94 L 04/30/18 03:04 Intake & Output 04/29/18 04/30/18 04/30/18 18:59 06:59 18:59 Intake Total 120 940 Output Total 2250 1550 200 Balance -2130 -1550 740 Weight 53.3 kg Intake: Oral 120 940 Output: Urine 2250 1550 200 Other: Voiding Method Bedside Commode Bedside Commode # Voids 2 2 # Bowel Movements 1 0 - Exam - Constitutional General appearance: cooperative, mild distress, thin - EENT Eyes: EOMI, PERRLA ENT: hard of hearing Ears: bilateral: normal - Neck Neck: normal ROM Carotids: bilateral: upstroke normal Thyroid: bilateral: normal size - Respiratory Respiratory: bilateral: CTA, diminished - Cardiovascular Rhythm: regular Heart sounds: normal: S1, S2 - Gastrointestinal General gastrointestinal: normal bowel sounds - Genitourinary Voiding without difficulty - Integumentary Integumentary: cellulitis - Neurologic Neurologic: CNII-XII intact - Musculoskeletal Musculoskeletal: generalized weakness - Psychiatric Psychiatric: A&O x's 3, appropriate affect, intact judgment & insight - Labs CBC & Chem 7: 04/28/18 18:57 04/30/18 05:35 Labs: Abnormal Lab Results - Last 24 Hours (Table) 04/30/18 04/30/18 04/30/18 Range/Units 05:35 06:07 11:51 Sodium 130 L (137-145) mmol/L Potassium 3.0 L (3.5-5.1) mmol/L Chloride 81 L (98-107) mmol/L Carbon Dioxide 36 H (22-30) mmol/L BUN 21 H (7-17) mg/dL Glucose 180 H (74-99) mg/dL POC Glucose (mg/dL) 182 H 212 H (75-99) mg/dL Calcium 10.3 H (8.4-10.2) mg/dL Magnesium 1.1 L (1.6-2.3) mg/dL Assessment and Plan Assessment: Impression: #1 Lower extremity peripheral edema with suspected cellulitis suspect secondary to cor pulmonale secondary to severe chronic obstructive pulmonary disease and chronic hypoxic respiratory failure. Frequent steroid and gabapentin use. Preserved left ventricular systolic function. #2 Severe, oxygen dependent chronic obstructive pulmonary disease, currently inactive and stable. #3 History of chronic tobacco dependence. #4 Rheumatoid arthritis. #5 Anxiety disorder. #6 Hyperlipidemia. #7 Hypertension. Plan: The patient was seen and evaluated by Dr. Bueno. We will continue with her COPD treatment. Continue diuretics. Continue with Neel wraps to the bilateral lower extremities. Eliquis for anticoagulation. We will continue to monitor and make further recommendations based on her clinical status. I, the cosigning physician, performed a history & physical examination of the patient. Lungs sounds are clear, diminished. Maintaining good O2 saturations in the 90s on 2 L/m per nasal cannula. I discussed the assessment and plan of care with my nurse practitioner, Chula Varma. I attest to the above note as dictated by her.
[2018-04-30] MEDS ORDERED: METOPROLOL TARTRATE 50 MG TAB PO STA (14:58)
[2018-04-30 16:33] LABS: Glucose,Whole Blood 224 mg/dL (75-99)
[2018-04-30] MEDS: SODIUM CHLORIDE 0.9% 1,000 ML IV SCH (20:23)
[2018-04-30] MEDS: PRAVASTATIN SODIUM 40 MG TAB PO SCH (20:23)
[2018-04-30 21:27] LABS: Glucose,Whole Blood 143 mg/dL (75-99)
--- NOTE | 2018-04-30 22:33 | PN ---
PROGRESS NOTE CHIEF COMPLAINT: Re-evaluation. HISTORY OF PRESENT ILLNESS: This is a 68-year-old who was admitted to the hospital because of edema. The patient has underlying history of chronic COPD. The patient really denies much respiratory worsening symptoms. She was seen by Pulmonary and has been placed on steroids and cefazolin, with no clear evidence of tracheobronchitis or pneumonia. The patient is feeling better today. The patient had a brief run of atrial fibrillation and has multiple PACs. The patient is on anticoagulation. Her edema has markedly improved with the use of IV Lasix. The patient has some Neel wraps on the lower legs. The patient looks much better today. REVIEW OF SYSTEMS: NEURO: Denies any headaches, dizziness. PSYCH: No anxiety. CARDIAC: No chest pain, angina, palpitations. RESPIRATORY: Chronic shortness of breath. Mild chronic cough. No hemoptysis. GI: No nausea, vomiting, abdominal pain, diarrhea, constipation, hematochezia, melena. : No symptoms of dysuria or hematuria. EXTREMITIES: Decreasing edema. CONSTITUTIONAL: No fever, chills. PHYSICAL EXAMINATION: Pleasant 68-year-old who appears older than her stated age. Patient has cushingoid features. Vital signs revealed temperature 97.5, pulse 105, respirations 18, pulse ox of 95% on 2 L, blood pressure 108/74. HEENT: Normocephalic. NECK: No JVD. CHEST EXAMINATION: Increased percussion noted bilaterally. Lung galeas have otherwise generalized decreased air flow. CARDIAC: Distant heart sounds, S1, S2, with no gallops. Systolic murmur 2/6, left sternal border. ABDOMEN: Soft. Bowel sounds present. Extremities revealed edema which was decreased. Neurologically awake, alert, oriented, with well-coordinated movements. LABORATORY ASSESSMENT: Electrolytes which showed a potassium of 3.0, sodium 130, CO2 content 36. BUN 21, creatinine 0.58. Glucose 150. Magnesium 1.1. ASSESSMENT: 1. Chronic obstructive pulmonary disease with exacerbation. 2. Increased edema, lower legs, multifactorial. 3. Brief run of atrial fibrillation and also some evidence suggestive of multifocal atrial tachycardia. 4. Rheumatoid arthritis. 5. Steroid hyperglycemia. PLAN: Continue present medical regimen. Patient's condition was discussed with the patient. Prognosis guarded. Will switch IV Lasix to p.o. Lasix. Meanwhile, the patient is recommended placement to a nursing facility, as I do not think this patient with stage IV COPD and suspected cor pulmonale could continue to take care of herself. MMGRACE / INESSAN: [id number] /
[2018-05-01] MEDS: LORazepam 1 MG TAB PO PRN ×3 (00:32→23:24)
[2018-05-01] MEDS: HYDROcodone/APAP 5-325MG 1 EACH TAB PO PRN ×6 (00:32→20:54)
[2018-05-01] MEDS: IPRATROPIUM-ALBUTEROL 3 ML NEB INHALATION PRN ×5 (00:44→22:18)
[2018-05-01 06:41] LABS: Glucose,Whole Blood 158 mg/dL (75-99)
[2018-05-01] MEDS: INSULIN ASPART 100 UNIT/ML 1 ML 10 ML VIAL SQ SCH ×4 (06:58→21:46)
[2018-05-01 07:19] LABS: Anion Gap 7 mmol/L; Blood Urea Nitrogen 23 mg/dL (7-17); Calcium 9.5 mg/dL (8.4-10.2); Carbon Dioxide 39 mmol/L (22-30); Chloride 85 mmol/L (98-107); Glucose 154 mg/dL (74-99); Potassium 3.1 mmol/L (3.5-5.1); Sodium 131 mmol/L (137-145)
[2018-05-01] MEDS: FORMOTEROL FUMARATE 20 MCG/2 ML NEBU INHALATION SCH ×2 (07:27→19:18)
[2018-05-01] MEDS: IPRATROPIUM 0.5 MG/2.5 ML NEBU INHALATION SCH ×4 (07:27→19:18)
[2018-05-01] MEDS: BUDESONIDE 0.5 MG/2 ML NEBU INHALATION SCH ×2 (07:27→19:18)
[2018-05-01] MEDS: ceFAZolin 1,000 MG in DEXTROSE/WATER 1 50ML.BAG IVPB SCH ×3 (08:40→23:18)
[2018-05-01] MEDS: ONDANSETRON 4 MG/2 ML VIAL IVP PRN ×3 (08:40→20:54)
[2018-05-01] MEDS: methylPREDNISolone SOD SUCCI 40 MG/ML 1 ML VIAL IV SCH (08:40)
[2018-05-01] MEDS: FUROSEMIDE 10 MG/ML 4 ML VIAL IV SCH (08:40)
[2018-05-01] MEDS: GABAPENTIN 100 MG CAP PO SCH ×3 (08:41→21:50)
[2018-05-01] MEDS: METOPROLOL TARTRATE 25 MG TAB PO SCH ×2 (08:41→21:50)
[2018-05-01] MEDS: THEOPHYLLINE 24 HOUR 300 MG CAP.ER.24H PO SCH (08:41)
[2018-05-01] MEDS: POTASSIUM CHLORIDE ER 20 MEQ TAB.ER PO SCH ×3 (08:41→11:35)
[2018-05-01] MEDS: APIXABAN 5 MG TAB PO SCH ×2 (08:41→21:50)
[2018-05-01] MEDS: METOLAZONE 2.5 MG TAB PO SCH (08:41)
[2018-05-01] MEDS: SPIRONOLACTONE-HCTZ 25-25MG 1 EACH TAB PO SCH (08:42)
[2018-05-01] MEDS: TOFACITINIB CITRATE 11 MG PO SCH (09:34)
[2018-05-01] MEDS: MAGNESIUM SULFATE-D5W PMX 1 GM in DEXTROSE/WATER 1 100ML.BAG IVPB SCH ×2 (10:20→11:39)
--- NOTE | 2018-05-01 11:04 | P.PN ---
Subjective Progress Note Date: 05/01/18 Principal diagnosis: Acute lower extremity cellulitis and severe chronic obstructive lung disease, presently inactive This is a very pleasant 68-year-old female patient who follows with Dr. Santamaria as her primary care physician. She has a history of hyperlipidemia, hypertension, rheumatoid arthritis. She also has a history of severe oxygen dependent chronic obstructive pulmonary disease and follows with Dr. De La Vega in our office for the same. She has been maintained on Pulmicort and Perforomist inhalations, Spiriva, albuterol. Plan oxygen at 2 L/m per nasal cannula. She presented to the office yesterday as a regular appointment. Prior to that she been having ongoing issues with swelling in her lower edema lower extremities more so in her feet and ankles. She knew she had an appointment so she did not seek attention earlier. Upon arrival she had significant edema and weeping with evidence of cellulitis. Her breathing had been about the same. No excessive wheezing or chest tightness. She had been on Lasix and Zaroxolyn but had run out of her medications recently. She is seen today in consultation on the regular medical floor. She is awake and alert in no acute distress. She is having ongoing issues with lower extremity edema. They're now Neel wraps applied. Edema slightly improved. Chest x-ray shows new atelectasis of the right lung base. She's been initiated on Lasix 40 mg IV push every 12 hours. White count 9.5. Hemoglobin 13.0. Creatinine 0.56. Urinalysis negative. The patient is seen again today 04/30/2018 in follow-up on the selective care unit. She was brought up here from the regular medical floor with concerns regarding possible atrial fibrillation. 12-lead EKG reveals normal sinus rhythm. Echocardiogram reveals preserved left ventricular systolic function with ejection fraction 55%. No evidence of pulmonary hypertension. Normal right ventricle. Dopplers of the lower extremity were negative for DVT. Really , she is resting fairly comfortably in bed. She still has significant dyspnea on minimal exertion. She is maintaining good O2 saturation in the 90s on 2 L/m per nasal cannula. She is continued on DuoNeb inhalations, Pulmicort and Perforomist inhalations, IV Solu-Medrol. She remains on diuretics. She is down 3 kg. Remains in a negative balance. Peripheral edema improving. Reevaluated today on 05/01/2018, patient is feeling better, swelling seems to be improving, cellulitis is also resolving, shortness of breath is chronic but basically about the same. Patient remains on 2 L nasal cannula, remains on bronchodilators, antibiotics, and steroids. Labs today reflected hyponatremia and hypokalemia being addressed by the admitting physician. Objective - Vital Signs Vital signs: Vital Signs Temp 97.2 F L 05/01/18 08:00 Pulse 124 H 05/01/18 08:00 Resp 20 05/01/18 08:00 BP 136/75 05/01/18 08:00 Pulse Ox 97 05/01/18 08:00 Intake & Output 04/30/18 05/01/18 05/01/18 18:59 06:59 18:59 Intake Total 1900 240 Output Total 490 517 6523 Balance 1200 -700 -1260 Weight 51.3 kg Intake: Oral 1900 240 Output: Urine 727 882 0899 Other: Voiding Method Bedside Commode Bedside Commode Bedside Commode # Voids 2 1 # Bowel Movements 0 - Exam Physical Exam: Revealed a 68-year-old female in no distress. Head: Atraumatic, normocephalic. HEENT:[Neck is supple.] [No neck masses.] [No thyromegaly.] [No JVD.] Chest: [Diminished breath sound bilaterally, no rhonchi and no wheezes.] Cardiac Exam: [Normal S1 and S2, no S3 gallop, no murmur.] Abdomen: [Soft, nontender, no megaly, no rebound, no guarding, normal bowel sounds.] Extremities: [No clubbing, no edema, no cyanosis.] Resolving cellulitis and erythema in both lower extremities, continues to have lower extremities edema right more so than left. Neurological Exam: [No focal neurologic deficit.] Musculoskeletal: Generalized weakness. - Labs CBC & Chem 7: 04/28/18 18:57 05/01/18 05:30 Labs: Abnormal Lab Results - Last 24 Hours (Table) 04/30/18 04/30/18 04/30/18 Range/Units 11:51 16:32 21:23 Sodium (137-145) mmol/L Potassium (3.5-5.1) mmol/L Chloride (98-107) mmol/L Carbon Dioxide (22-30) mmol/L BUN (7-17) mg/dL Glucose (74-99) mg/dL POC Glucose (mg/dL) 212 H 224 H 143 H (75-99) mg/dL 05/01/18 05/01/18 Range/Units 05:30 06:39 Sodium 131 L (137-145) mmol/L Potassium 3.1 L (3.5-5.1) mmol/L Chloride 85 L (98-107) mmol/L Carbon Dioxide 39 H (22-30) mmol/L BUN 23 H (7-17) mg/dL Glucose 154 H (74-99) mg/dL POC Glucose (mg/dL) 158 H (75-99) mg/dL Assessment and Plan Assessment: #1 Lower extremity peripheral edema with suspected cellulitis suspect secondary to cor pulmonale secondary to severe chronic obstructive pulmonary disease and chronic hypoxic respiratory failure. #2 Severe, oxygen dependent chronic obstructive pulmonary disease, currently inactive and stable. #3 History of chronic tobacco dependence. #4 Rheumatoid arthritis. #5 Anxiety disorder. #6 Hyperlipidemia. #7 Hypertension. Recommendation: Continue present meds including antibiotics, bronchodilators, diuretics, oxygen, steroids, we will cut down the steroids, patient is usually maintained on 10 mg of prednisone daily on a maintenance basis. Consider discharge planning in the next 24-48 hours Time with Patient: Less than 30
[2018-05-01] MEDS: predniSONE 20 MG TAB PO SCH (11:15)
[2018-05-01 11:21] LABS: Glucose,Whole Blood 211 mg/dL (75-99)
[2018-05-01] MEDS: CYANOCOBALAMIN 500 MCG TAB PO SCH (11:35)
[2018-05-01] MEDS: MULTIVITAMINS, THERA 1 EACH TAB PO SCH (11:35)
[2018-05-01] MEDS: CHOLECALCIFEROL 1,000 UNIT TAB PO SCH (11:35)
[2018-05-01 17:21] LABS: Glucose,Whole Blood 161 mg/dL (75-99)
--- NOTE | 2018-05-01 17:49 | PN ---
PROGRESS NOTE ATTENDING PHYSICIAN: Dr. Ladarius Santamaria. CHIEF COMPLAINT: Re-evaluation. HISTORY OF PRESENT ILLNESS: A 68-year-old female was admitted to the hospital because of increased edema. She has underlying history of significant COPD stage IV. She has also signs suggestive of cor pulmonale. Echocardiogram does not reveal significant pulmonary hypertension. The patient is feeling much better. She had a brief run of atrial fibrillation and also multiple PACs. She is in sinus rhythm at present with occasional PACs. The patient was started on Eliquis and will continue so. The patient is at high risk for DVT as she is mostly sedentary and develops significant edema lower legs. She had venous duplex studies done of the lower extremities, which did not reveal any DVT. The patient really does not have much of a cough or purulent sputum, but has been placed on cefazolin by the raw shellfish preparer. The patient has also been placed on larger doses of steroids, which should be able to be decreased. REVIEW OF SYSTEMS: NEURO: Denies any headaches, dizziness. PSYCH: No anxiety. CARDIAC: No chest pain, angina, palpitation. RESPIRATORY: Denies shortness of breath with oxygen on. Does have chronic cough with no hemoptysis and no sputum production. GI: No nausea, vomiting, abdominal pain, diarrhea. : No symptoms of dysuria, hematuria, urgency, frequency. EXTREMITIES: Left leg edema is pretty much resolved. Right leg, the patient still has some edema. NEUROLOGICALLY: Awake, alert, oriented with well-coordinated movements. LABORATORY ASSESSMENT: Sodium was 131, potassium 3.1, CO2 content was 39, BUN 23. Blood sugars 154. ASSESSMENT: 1. Chronic obstructive pulmonary disease with exacerbation. 2. Cor pulmonale. 3. Hyponatremia. 4. Hypokalemia. 5. Steroid induced hyperglycemia. 6. Rheumatoid arthritis. 7. Chronic debility. PLAN: The patient at present is stable, continue present medical regimen. Condition is improved. Plan is for patient to be placed in a nursing facility and meanwhile, continue present regimen. Decrease the Lasix to 20 mg daily. Prognosis remains guarded. MMODL / IJN: [id number] /
[2018-05-01] MEDS: SODIUM CHLORIDE 0.9% 1,000 ML IV SCH (21:02)
[2018-05-01 21:04] LABS: Glucose,Whole Blood 140 mg/dL (75-99)
[2018-05-01] MEDS: PRAVASTATIN SODIUM 40 MG TAB PO SCH (22:10)
[2018-05-02] MEDS: IPRATROPIUM-ALBUTEROL 3 ML NEB INHALATION PRN ×8 (00:21→23:52)
[2018-05-02] MEDS: HYDROcodone/APAP 5-325MG 1 EACH TAB PO PRN ×6 (00:26→23:05)
[2018-05-02] MEDS: ONDANSETRON 4 MG/2 ML VIAL IVP PRN ×3 (04:52→18:53)
[2018-05-02 05:42] LABS: Glucose,Whole Blood 117 mg/dL (75-99)
[2018-05-02 06:09] LABS: Blood Urea Nitrogen 24 mg/dL (7-17); Calcium 9.4 mg/dL (8.4-10.2); Chloride 84 mmol/L (98-107); Glucose 107 mg/dL (74-99); Potassium 3.7 mmol/L (3.5-5.1); Sodium 131 mmol/L (137-145)
[2018-05-02] MEDS: INSULIN ASPART 100 UNIT/ML 1 ML 10 ML VIAL SQ SCH ×4 (06:14→21:22)
[2018-05-02 06:18] LABS: Anion Gap 9 mmol/L; Carbon Dioxide 38 mmol/L (22-30)
[2018-05-02] MEDS: BUDESONIDE 0.5 MG/2 ML NEBU INHALATION SCH ×2 (07:24→19:41)
[2018-05-02] MEDS: FORMOTEROL FUMARATE 20 MCG/2 ML NEBU INHALATION SCH ×2 (07:24→19:41)
[2018-05-02] MEDS: IPRATROPIUM 0.5 MG/2.5 ML NEBU INHALATION SCH ×4 (07:30→19:42)
[2018-05-02] MEDS: TOFACITINIB CITRATE 11 MG PO SCH (08:45)
[2018-05-02] MEDS: predniSONE 20 MG TAB PO SCH (09:00)
[2018-05-02] MEDS ORDERED: FUROSEMIDE 10 MG/ML 2 ML VIAL IV SCH (09:00)
[2018-05-02] MEDS: POTASSIUM CHLORIDE ER 20 MEQ TAB.ER PO SCH (09:01)
[2018-05-02] MEDS: APIXABAN 5 MG TAB PO SCH ×2 (09:01→21:14)
[2018-05-02] MEDS: SPIRONOLACTONE-HCTZ 25-25MG 1 EACH TAB PO SCH (09:01)
[2018-05-02] MEDS: THEOPHYLLINE 24 HOUR 300 MG CAP.ER.24H PO SCH (09:01)
[2018-05-02] MEDS: METOLAZONE 2.5 MG TAB PO SCH (09:01)
[2018-05-02] MEDS: GABAPENTIN 100 MG CAP PO SCH ×3 (09:01→21:14)
[2018-05-02] MEDS: METOPROLOL TARTRATE 25 MG TAB PO SCH ×2 (09:01→21:14)
--- NOTE | 2018-05-02 10:14 | P.PN ---
Subjective Progress Note Date: 05/02/18 Principal diagnosis: Acute lower extremity cellulitis and severe chronic obstructive lung disease, presently inactive This is a very pleasant 68-year-old female patient who follows with Dr. Santamaria as her primary care physician. She has a history of hyperlipidemia, hypertension, rheumatoid arthritis. She also has a history of severe oxygen dependent chronic obstructive pulmonary disease and follows with Dr. De La Vega in our office for the same. She has been maintained on Pulmicort and Perforomist inhalations, Spiriva, albuterol. Plan oxygen at 2 L/m per nasal cannula. She presented to the office yesterday as a regular appointment. Prior to that she been having ongoing issues with swelling in her lower edema lower extremities more so in her feet and ankles. She knew she had an appointment so she did not seek attention earlier. Upon arrival she had significant edema and weeping with evidence of cellulitis. Her breathing had been about the same. No excessive wheezing or chest tightness. She had been on Lasix and Zaroxolyn but had run out of her medications recently. She is seen today in consultation on the regular medical floor. She is awake and alert in no acute distress. She is having ongoing issues with lower extremity edema. They're now Neel wraps applied. Edema slightly improved. Chest x-ray shows new atelectasis of the right lung base. She's been initiated on Lasix 40 mg IV push every 12 hours. White count 9.5. Hemoglobin 13.0. Creatinine 0.56. Urinalysis negative. The patient is seen again today 04/30/2018 in follow-up on the selective care unit. She was brought up here from the regular medical floor with concerns regarding possible atrial fibrillation. 12-lead EKG reveals normal sinus rhythm. Echocardiogram reveals preserved left ventricular systolic function with ejection fraction 55%. No evidence of pulmonary hypertension. Normal right ventricle. Dopplers of the lower extremity were negative for DVT. Really , she is resting fairly comfortably in bed. She still has significant dyspnea on minimal exertion. She is maintaining good O2 saturation in the 90s on 2 L/m per nasal cannula. She is continued on DuoNeb inhalations, Pulmicort and Perforomist inhalations, IV Solu-Medrol. She remains on diuretics. She is down 3 kg. Remains in a negative balance. Peripheral edema improving. Reevaluated today on 05/01/2018, patient is feeling better, swelling seems to be improving, cellulitis is also resolving, shortness of breath is chronic but basically about the same. Patient remains on 2 L nasal cannula, remains on bronchodilators, antibiotics, and steroids. Labs today reflected hyponatremia and hypokalemia being addressed by the admitting physician. Reevaluated on 05/02/2018, continues to slowly improve, cellulitis is resolving , shortness of breath is improving, patient is a bit anxious about the move to the new tolerated today. Remains on the same meds including bronchodilators, antibiotics, and she is on oral prednisone. Remains on 2 L nasal cannula. Sodium today is 131, bicarb is 38, normal renal profile noted. Objective - Vital Signs Vital signs: Vital Signs Temp 97.7 F 05/02/18 08:00 Pulse 102 H 05/02/18 08:00 Resp 22 05/02/18 08:00 BP 134/70 05/02/18 08:00 Pulse Ox 96 05/02/18 08:00 Intake & Output 05/01/18 05/02/18 05/02/18 18:59 06:59 18:59 Intake Total 684 240 Output Total 2500 750 700 Balance -1816 -750 -460 Intake: Oral 684 240 Output: Urine 2500 750 700 Other: Voiding Method Bedside Commode Bedside Commode Bedside Commode # Voids 2 - Exam Physical Exam: Revealed a 68-year-old female in no distress. Slightly anxious. Head: Atraumatic, normocephalic. HEENT:[Neck is supple.] [No neck masses.] [No thyromegaly.] [No JVD.] Chest: [Diminished breath sound bilaterally, no rhonchi and no wheezes.] Cardiac Exam: [Normal S1 and S2, no S3 gallop, no murmur.] Abdomen: [Soft, nontender, no megaly, no rebound, no guarding, normal bowel sounds.] Extremities: [No clubbing, no edema, no cyanosis.] Resolving cellulitis and erythema in both lower extremities, continues to have lower extremities edema right more so than left. But improving compared to yesterday. Neurological Exam: [No focal neurologic deficit.] Musculoskeletal: Generalized weakness. Normal range of motion, no deformities. - Labs CBC & Chem 7: 04/28/18 18:57 05/02/18 05:17 Labs: Abnormal Lab Results - Last 24 Hours (Table) 05/01/18 05/01/18 05/01/18 Range/Units 11:19 16:47 21:02 Sodium (137-145) mmol/L Chloride (98-107) mmol/L Carbon Dioxide (22-30) mmol/L BUN (7-17) mg/dL Glucose (74-99) mg/dL POC Glucose (mg/dL) 211 H 161 H 140 H (75-99) mg/dL 05/02/18 05/02/18 Range/Units 05:17 05:41 Sodium 131 L (137-145) mmol/L Chloride 84 L (98-107) mmol/L Carbon Dioxide 38 H (22-30) mmol/L BUN 24 H (7-17) mg/dL Glucose 107 H (74-99) mg/dL POC Glucose (mg/dL) 117 H (75-99) mg/dL Assessment and Plan Assessment: #1 Lower extremity peripheral edema with suspected cellulitis and cor pulmonale secondary to severe chronic obstructive pulmonary disease and chronic hypoxic respiratory failure. #2 Severe, oxygen dependent chronic obstructive pulmonary disease, currently inactive and stable. #3 History of chronic tobacco dependence. #4 Rheumatoid arthritis. #5 Anxiety disorder. #6 Hyperlipidemia. #7 Hypertension. Recommendation: Continue all present meds, patient is already on oral prednisone , remains on Lasix lower dose, consider discharge planning to a rehab facility in the next 24 hours. Follow-up on outpatient basis. Time with Patient: Less than 30
[2018-05-02] MEDS: LORazepam 1 MG TAB PO PRN ×2 (10:30→23:05)
[2018-05-02 12:01] LABS: Glucose,Whole Blood 138 mg/dL (75-99)
[2018-05-02] MEDS: ceFAZolin 1,000 MG in DEXTROSE/WATER 1 50ML.BAG IVPB SCH (12:23)
[2018-05-02] MEDS: MULTIVITAMINS, THERA 1 EACH TAB PO SCH (12:23)
[2018-05-02] MEDS: CYANOCOBALAMIN 500 MCG TAB PO SCH (12:24)
[2018-05-02] MEDS: CHOLECALCIFEROL 1,000 UNIT TAB PO SCH (12:24)
--- NOTE | 2018-05-02 12:35 | P.PN ---
Subjective Progress Note Date: 05/02/18 Principal diagnosis: COPD This 68-year-old female was admitted to the hospital after being referred with a budget engineer from the office because of patient having significant edema and lower extremities. Patient had not been taking the diuretics. The diuretic makes it a get to the bathroom too often and thus to save her energy and breathing she was not taking medication on regular basis. Following admission patient was placed on IV diuretics with significant diuresis and loss of edema. She was seen by budget engineer. Patient is no significant sputum production she was placed on cefazolin and steroids. Since there is no evidence of any respiratory infection however discontinue the cefazolin. Patient's steroids have been decreased down to 20 mg daily. Patient's edema was related to both use of steroids she has cushingoid features as well as gabapentin. The gabapentin dose has been decreased. Patient feels improved she denies much symptoms. Her breathing is as usual has a chronic cough with no change denies chest pain. Eating better and she is feeling better. This patient has significantly advanced COPD stage IV with associated debility. Have advised patient on rehab as well as long-term placement to an C type of setting as she needs help with most of the ADLs REVIEW OF SYSTEMS: Neuro: Denies any headaches dizziness. Psych: Denies anxiety depression feels oriented. Cardiac: Denies chest pain and angina palpitations. Respiratory: Chronic shortness of breath and cough. GI: Denies nausea vomiting or abdominal pain. No diarrhea or constipation, no bowel movement yet. : Denies dysuria hematuria but does have frequency with use of diuretics Extremities: Denies pain edema practically resolved Skin: Easy bruising. Constitutional: No fever, chills. Objective - Vital Signs Vital signs: Vital Signs Temp 97.7 F 05/02/18 08:00 Pulse 94 05/02/18 10:59 Resp 22 05/02/18 08:00 BP 134/70 05/02/18 08:00 Pulse Ox 96 05/02/18 08:00 Intake & Output 05/01/18 05/02/18 05/02/18 18:59 06:59 18:59 Intake Total 684 240 Output Total 2500 750 800 Balance -1816 -750 -560 Intake: Oral 684 240 Output: Urine 2500 750 800 Other: Voiding Method Bedside Commode Bedside Commode Bedside Commode # Voids 1 PHYSICAL EXAMINATION: Cooperative, at present in no acute distress. HEENT: Neck supple. No JVD. Chest: Generalized decreased airflow with no wheezing rhonchi increase symmetrical percussion note bilateral Cardiac: Normal S1-S2 no gallops systolic murmur left sternal border. Rhythm is regular with frequent irregular beats. Abdomen: Soft bowel sounds present. Extremities: Trace edema at the ankles no tenderness Neurologically: Awake, alert, oriented with well-coordinated movements. - Labs CBC & Chem 7: 04/28/18 18:57 05/02/18 05:17 Labs: Abnormal Lab Results - Last 24 Hours (Table) 05/01/18 05/01/18 05/02/18 Range/Units 16:47 21:02 05:17 Sodium 131 L (137-145) mmol/L Chloride 84 L (98-107) mmol/L Carbon Dioxide 38 H (22-30) mmol/L BUN 24 H (7-17) mg/dL Glucose 107 H (74-99) mg/dL POC Glucose (mg/dL) 161 H 140 H (75-99) mg/dL 05/02/18 05/02/18 Range/Units 05:41 11:41 Sodium (137-145) mmol/L Chloride (98-107) mmol/L Carbon Dioxide (22-30) mmol/L BUN (7-17) mg/dL Glucose (74-99) mg/dL POC Glucose (mg/dL) 117 H 138 H (75-99) mg/dL Assessment and Plan Assessment: ASSESSMENT: 1. Cor pulmonale. 2. Acute exacerbation COPD. 3. Acute on chronic respiratory failure. 4. Edema improved. 5. Iatrogenic cushingoid syndrome. 6. Hyponatremia. 7. Hypokalemia. 8. Rheumatoid arthritis 9. Debility and decreased nutritional status. PLAN: Continue present medical regimen potential transfer to nursing facility for rehab tomorrow patient's IV Lasix be discontinued and be started on by mouth Lasix..
[2018-05-02 16:48] LABS: Glucose,Whole Blood 127 mg/dL (75-99)
[2018-05-02 21:09] LABS: Glucose,Whole Blood 155 mg/dL (75-99)
[2018-05-02] MEDS: PRAVASTATIN SODIUM 40 MG TAB PO SCH (21:14)
[2018-05-03] MEDS: IPRATROPIUM-ALBUTEROL 3 ML NEB INHALATION PRN ×4 (03:46→23:25)
[2018-05-03] MEDS: HYDROcodone/APAP 5-325MG 1 EACH TAB PO PRN ×5 (04:12→22:01)
[2018-05-03] MEDS: ONDANSETRON 4 MG/2 ML VIAL IVP PRN ×3 (06:22→20:20)
[2018-05-03 06:26] LABS: Glucose,Whole Blood 101 mg/dL (75-99)
[2018-05-03] MEDS: INSULIN ASPART 100 UNIT/ML 1 ML 10 ML VIAL SQ SCH ×4 (06:28→22:02)
[2018-05-03] MEDS ORDERED: NYSTATIN 100,000 UNIT/ML SUSP 500,000 UNIT/5 ML CUP PO PRN (08:12)
[2018-05-03] MEDS: IPRATROPIUM 0.5 MG/2.5 ML NEBU INHALATION SCH ×4 (08:51→19:09)
[2018-05-03] MEDS: BUDESONIDE 0.5 MG/2 ML NEBU INHALATION SCH ×2 (08:52→19:09)
[2018-05-03] MEDS: FORMOTEROL FUMARATE 20 MCG/2 ML NEBU INHALATION SCH ×2 (08:52→19:09)
[2018-05-03] MEDS: TOFACITINIB CITRATE 11 MG PO SCH (09:36)
[2018-05-03] MEDS: FUROSEMIDE 20 MG TAB PO SCH (09:41)
[2018-05-03] MEDS: GABAPENTIN 100 MG CAP PO SCH ×3 (09:41→20:20)
[2018-05-03] MEDS: METOPROLOL TARTRATE 25 MG TAB PO SCH ×2 (09:41→20:20)
[2018-05-03] MEDS: SPIRONOLACTONE-HCTZ 25-25MG 1 EACH TAB PO SCH (09:41)
[2018-05-03] MEDS: POTASSIUM CHLORIDE ER 20 MEQ TAB.ER PO SCH (09:41)
[2018-05-03] MEDS: predniSONE 20 MG TAB PO SCH (09:41)
[2018-05-03] MEDS: APIXABAN 5 MG TAB PO SCH ×2 (09:41→20:20)
[2018-05-03] MEDS: DOCUSATE 100 MG CAP PO PRN (09:41)
[2018-05-03] MEDS: THEOPHYLLINE 24 HOUR 300 MG CAP.ER.24H PO SCH (09:41)
[2018-05-03] MEDS: METOLAZONE 2.5 MG TAB PO SCH (09:41)
[2018-05-03 12:05] LABS: Glucose,Whole Blood 141 mg/dL (75-99)
[2018-05-03] MEDS: CYANOCOBALAMIN 500 MCG TAB PO SCH (12:23)
[2018-05-03] MEDS: CHOLECALCIFEROL 1,000 UNIT TAB PO SCH (12:23)
[2018-05-03] MEDS: MULTIVITAMINS, THERA 1 EACH TAB PO SCH (12:23)
[2018-05-03] MEDS: LORazepam 1 MG TAB PO PRN ×2 (13:57→23:52)
--- NOTE | 2018-05-03 14:08 | P.PN ---
Subjective Progress Note Date: 05/03/18 Principal diagnosis: Lower extremity edema, Progress note dated 05/03/2018 68-year-old female with history of significant low some edema and suspected cellulitis with cor pulmonale all secondary to severe COPD. The patient does have history of chronic hypoxemic respiratory failure and oxygen-dependent COPD. In addition, she has a history of chronic tobacco dependence rheumatoid arthritis and anxiety disorder hyperlipidemia and hypertension. The patient's doing much better. Her legs have responded to diuretic therapy. Almost all the swelling has dissipated. From the breathing standpoint, she's pretty much at baseline. We entered the room today, she was actually brushing her teeth. She was not requiring any supplemental oxygen. She is hoping to be discharged in the near future. She denies any shortness of breath chest tightness wheezing cough or phlegm production. She sees my partner, Dr. De La Vega in our office. Objective - Vital Signs Vital signs: Vital Signs Temp 98.8 F 05/03/18 08:00 Pulse 92 05/03/18 13:38 Resp 18 05/03/18 08:00 BP 186/96 05/03/18 08:00 Pulse Ox 97 05/03/18 08:00 Intake & Output 05/02/18 05/03/18 05/03/18 18:59 06:59 18:59 Intake Total 480 240 240 Output Total 800 300 Balance -320 -60 240 Weight 53.7 kg Intake: Oral 480 240 240 Output: Urine 800 300 Other: Voiding Method Bedside Commode Bedside Commode # Voids 3 1 - Exam No acute distress, oriented 3. HEENT examination is grossly unremarkable. Mucous membranes are moist. No oral lesions. Neck supple. Full range of motion. No adenopathy thyromegaly or neck vein distention. Cardiovascular examination reveals regular rhythm rate. S1-S2 normal. No S3 or S4. No discernible murmur noted. Lungs reveal clear but severely diminished breath sounds. No wheezes rhonchi or crackles. Slight prolongation. Breath sounds equal bilaterally. Abdomen soft bowel sounds are heard. No masses or tenderness. Extremities reveal almost no swelling. There is diffuse ecchymosis and chronic venous stasis changes. No cyanosis or clubbing noted. Skin is without rash or lesion. Neurologic examination is brief but nonfocal. - Labs CBC & Chem 7: 04/28/18 18:57 05/02/18 05:17 Labs: Abnormal Lab Results - Last 24 Hours (Table) 05/02/18 05/02/18 05/03/18 Range/Units 16:38 21:05 06:24 POC Glucose (mg/dL) 127 H 155 H 101 H (75-99) mg/dL 05/03/18 Range/Units 12:00 POC Glucose (mg/dL) 141 H (75-99) mg/dL Assessment and Plan Assessment: Assessment Severe COPD with cor pulmonale and pulmonary hypertension Lower extremity edema secondary to #1 above, much improved Cellulitis of the lower extremities, improved Severe hypoxemic respiratory failure secondary to severe COPD History of chronic tobacco dependence History of rheumatoid arthritis History of chronic anxiety disorder History of hyperlipidemia History of hypertension Plan: Plan dated 05/03/2018 Many of the patient's breathing medications have been switched to oral equivalents. The patient is doing relatively well. She is hoping to be discharged soon. She states her legs are much improved. Her breathing is stable. She denies any shortness of breath more than usual. No cough wheezing or phlegm production noted. No additional labs to report today. Her prognosis is guarded. Time with Patient: Less than 30
[2018-05-03 16:46] LABS: Glucose,Whole Blood 229 mg/dL (75-99)
[2018-05-03] MEDS: PRAVASTATIN SODIUM 40 MG TAB PO SCH (20:20)
[2018-05-03 20:57] LABS: Glucose,Whole Blood 60 mg/dL (75-99)
[2018-05-03 21:53] LABS: Glucose,Whole Blood 151 mg/dL (75-99)
[2018-05-04] MEDS: HYDROcodone/APAP 5-325MG 1 EACH TAB PO PRN ×4 (03:06→14:58)
[2018-05-04] MEDS: ONDANSETRON 4 MG/2 ML VIAL IVP PRN ×3 (03:06→15:01)
[2018-05-04] MEDS: IPRATROPIUM-ALBUTEROL 3 ML NEB INHALATION PRN ×3 (05:04→15:19)
[2018-05-04 05:59] LABS: Glucose,Whole Blood 104 mg/dL (75-99)
[2018-05-04] MEDS: INSULIN ASPART 100 UNIT/ML 1 ML 10 ML VIAL SQ SCH ×2 (06:35→12:34)
[2018-05-04] MEDS: GABAPENTIN 100 MG CAP PO SCH ×2 (08:10→14:58)
[2018-05-04] MEDS: TOFACITINIB CITRATE 11 MG PO SCH (08:10)
[2018-05-04] MEDS: BUDESONIDE 0.5 MG/2 ML NEBU INHALATION SCH (08:10)
[2018-05-04] MEDS: IPRATROPIUM 0.5 MG/2.5 ML NEBU INHALATION SCH ×3 (08:10→16:31)
[2018-05-04] MEDS: FORMOTEROL FUMARATE 20 MCG/2 ML NEBU INHALATION SCH (08:10)
[2018-05-04] MEDS: FUROSEMIDE 20 MG TAB PO SCH (08:10)
[2018-05-04] MEDS: LORazepam 1 MG TAB PO PRN (08:11)
[2018-05-04] MEDS: MULTIVITAMINS, THERA 1 EACH TAB PO SCH (08:11)
[2018-05-04] MEDS: METOPROLOL TARTRATE 25 MG TAB PO SCH (08:11)
[2018-05-04] MEDS: APIXABAN 5 MG TAB PO SCH (08:11)
[2018-05-04] MEDS: predniSONE 20 MG TAB PO SCH (08:11)
[2018-05-04] MEDS: POTASSIUM CHLORIDE ER 20 MEQ TAB.ER PO SCH (08:11)
--- NOTE | 2018-05-04 08:12 | P.PN ---
Subjective Progress Note Date: 05/04/18 This 68-year-old female is admitted to the facility the cause of progressive increasing shortness of breath with underlying history of COPD. She had significant edema lower extremities suspicious of cor pulmonale clinically. Echo was reasonably well with normal pressures. Patient is stabilized. Her edema is resolved. Patient's awaiting placement for rehab due to generalized debility. She does have underlying history of rheumatoid arthritis. Denies any other symptoms. Sugars adequately controlled. Patient's on tapering steroids. No antibiotics. She had brief run atrial fibrillation. Patient on anticoagulation with no adverse bleeding REVIEW OF SYSTEMS: Neuro: Denies any headaches dizziness. Psych: Denies anxiety depression feels oriented. Cardiac: Denies chest pain and angina palpitations. Respiratory: Chronic shortness of breath and chronic cough with no change or worsening .better than at the time of admission GI: Denies nausea vomiting or abdominal pain. No diarrhea or constipation, no bowel movement yet. : Denies dysuria hematuria. Extremities: Denies pain. No edema. Skin: Intact. Constitutional: No fever, chills. Objective - Vital Signs Vital signs: Vital Signs Temp 97.7 F 05/04/18 04:00 Pulse 70 05/04/18 05:18 Resp 18 05/04/18 04:00 BP 166/79 05/04/18 04:00 Pulse Ox 98 05/04/18 04:00 Intake & Output 05/03/18 05/04/18 05/04/18 18:59 06:59 18:59 Intake Total 600 Output Total 1900 100 Balance -1300 -100 Weight 53.8 kg Intake: Oral 600 Output: Urine 1900 100 Other: Voiding Method Bedside Commode # Voids 7 PHYSICAL EXAMINATION: Cooperative, at present in no acute distress. HEENT: Neck supple. No JVD. Chest: Generalized decreased airflow with occasional rhonchi otherwise no wheezing. Increase symmetrical percussion note bilateral Cardiac: Regular rhythm with irregular beats systolic murmur 2/6 left sternal border. No gallops . Abdomen: Soft bowel sounds present. Extremities: No edema no tenderness Neurologically: Awake, alert, oriented with well-coordinated movements. - Labs CBC & Chem 7: 04/28/18 18:57 05/02/18 05:17 Labs: Abnormal Lab Results - Last 24 Hours (Table) 05/03/18 05/03/18 05/03/18 Range/Units 12:00 16:41 20:55 POC Glucose (mg/dL) 141 H 229 H 60 L (75-99) mg/dL 05/03/18 05/04/18 Range/Units 21:51 05:58 POC Glucose (mg/dL) 151 H 104 H (75-99) mg/dL Assessment and Plan Assessment: ASSESSMENT: 1. Acute on chronic respiratory failure improved. 2. Edema resolved. 3. COPD with exacerbation. 4. Probable cor pulmonale. 5. Iatrogenic cushingoid syndrome. 6. Steroid induced diabetes. 7. Debility. 8. Rheumatoid Arthritis. 9. Essential hypertension with mildly elevated blood pressure PLAN: Continue present medical regimen. Patient awaiting transfer to rehab.
[2018-05-04] MEDS: CHOLECALCIFEROL 1,000 UNIT TAB PO SCH (08:16)
[2018-05-04] MEDS: CYANOCOBALAMIN 500 MCG TAB PO SCH (08:16)
[2018-05-04] MEDS ORDERED: THEOPHYLLINE 24 HOUR 300 MG CAP.ER.24H PO SCH (09:00)
[2018-05-04] MEDS ORDERED: METOLAZONE 2.5 MG TAB PO SCH (09:00)
[2018-05-04] MEDS ORDERED: SPIRONOLACTONE-HCTZ 25-25MG 1 EACH TAB PO SCH (09:00)
[2018-05-04] MEDS: DOCUSATE 100 MG CAP PO PRN (10:57)
--- NOTE | 2018-05-04 11:16 | P.PN ---
Subjective Progress Note Date: 05/04/18 Principal diagnosis: Lower extremity edema, Progress note dated 05/03/2018 68-year-old female with history of significant low some edema and suspected cellulitis with cor pulmonale all secondary to severe COPD. The patient does have history of chronic hypoxemic respiratory failure and oxygen-dependent COPD. In addition, she has a history of chronic tobacco dependence rheumatoid arthritis and anxiety disorder hyperlipidemia and hypertension. The patient's doing much better. Her legs have responded to diuretic therapy. Almost all the swelling has dissipated. From the breathing standpoint, she's pretty much at baseline. We entered the room today, she was actually brushing her teeth. She was not requiring any supplemental oxygen. She is hoping to be discharged in the near future. She denies any shortness of breath chest tightness wheezing cough or phlegm production. She sees my partner, Dr. De La Vega in our office. Progress note dated 05/04/2018 68-year-old female with history of significant lower extremity edema, suspected cellulitis and cor pulmonale, all secondary to her severe COPD. The patient has a history of chronic hypoxemic respiratory failure and oxygen-dependent COPD. In addition, the patient has a history of chronic tobacco dependence, rheumatoid arthritis, anxiety, hyperlipidemia and hypertension. The patient is doing reasonably well and is awaiting the possibility of discharge. She sees my partner in the office and will follow-up with my partner post discharge. From the pulmonary standpoint, the patient is doing reasonably well. She denies any significant difficulty breathing coughing wheezing or shortness of breath. Her lower extremity edema is much improved. She is pretty much back to baseline. She is not requiring any supplemental oxygen. She had a good night last night. Objective - Vital Signs Vital signs: Vital Signs Temp 97.6 F 05/04/18 11:07 Pulse 98 05/04/18 11:07 Resp 18 05/04/18 11:07 BP 169/86 05/04/18 11:07 Pulse Ox 94 L 05/04/18 11:07 Intake & Output 05/03/18 05/04/18 05/04/18 18:59 06:59 18:59 Intake Total 600 Output Total 1900 100 Balance -1300 -100 Weight 53.8 kg Intake: Oral 600 Output: Urine 1900 100 Other: Voiding Method Bedside Commode Bedside Commode # Voids 7 1 - Exam No acute distress, oriented 3. No supplemental oxygen noted. HEENT examination is grossly unremarkable. Mucous membranes are moist. No oral lesions. Neck supple. Full range of motion. No adenopathy thyromegaly or neck vein distention. Cardiovascular examination reveals regular rhythm rate. S1-S2 normal. No S3 or S4. No discernible murmur noted. Lungs reveal clear but severely diminished breath sounds. No wheezes rhonchi or crackles. Slight prolongation. Breath sounds equal bilaterally. Abdomen soft bowel sounds are heard. No masses or tenderness. Extremities reveal almost no swelling. There is diffuse ecchymosis and chronic venous stasis changes. No cyanosis or clubbing noted. Skin is without rash or lesion. Neurologic examination is brief but nonfocal. - Labs CBC & Chem 7: 04/28/18 18:57 05/02/18 05:17 Labs: Abnormal Lab Results - Last 24 Hours (Table) 05/03/18 05/03/18 05/03/18 Range/Units 12:00 16:41 20:55 POC Glucose (mg/dL) 141 H 229 H 60 L (75-99) mg/dL 05/03/18 05/04/18 Range/Units 21:51 05:58 POC Glucose (mg/dL) 151 H 104 H (75-99) mg/dL Assessment and Plan Assessment: Assessment Severe COPD with cor pulmonale and pulmonary hypertension Lower extremity edema secondary to #1 above, much improved Cellulitis of the lower extremities, improved Severe hypoxemic respiratory failure secondary to severe COPD History of chronic tobacco dependence History of rheumatoid arthritis History of chronic anxiety disorder History of hyperlipidemia History of hypertension Plan: Plan dated 05/03/2018 Many of the patient's breathing medications have been switched to oral equivalents. The patient is doing relatively well. She is hoping to be discharged soon. She states her legs are much improved. Her breathing is stable. She denies any shortness of breath more than usual. No cough wheezing or phlegm production noted. No additional labs to report today. Her prognosis is guarded. Plan dated 05/04/2018 No new lab data to report. There has not been a chest x-ray since April 28. Medications are reviewed and appear to be appropriate. I will switch the formoterol and Pulmicort to Symbicort. Her prednisone dose is 20 mg a day. Her other breathing medications are appropriate. Her prognosis is guarded. Additional recommendations and suggestions are forthcoming. From the pulmonary standpoint, she is stable for discharge. Again, she should follow-up with my partner in the office for her lungs. Time with Patient: Less than 30
[2018-05-04 11:40] LABS: Glucose,Whole Blood 171 mg/dL (75-99)
[2018-05-04 15:57] VITALS: BP 135/95; PULSE 69; RESP 18; TEMP 96.5
--- NOTE | 2018-05-05 12:17 | CDI ---
Last Revision, June 2017 Documentation Clarification Form Date: 05/05/18 From: Diane Strong Phone: If you have a question regarding this query, please contact Dinora Mccartney at [phone] between 8am and 5pm. Admit Date: 04/29/2018 8:06:00 PM Patient Name: Nay Zaidi Visit Number: [id number] Discharge Date: 05/04/18 ATTENTION: The Clinical Documentation Specialists (CDI) and [facility] Coding Staff appreciate your assistance in clarifying documentation. Please respond to the clarification below the line at the bottom and electronically sign. The CDI & [facility] Coding staff will review the response and follow-up if needed. Please note: Queries are made part of the Legal Health Record. If you have any questions, please contact the author of this message via ITS. Josh Bustillos MD Cor Pulmonale is documented in the H&P, your progress notes from 05/01 - 05/[address] Pickard's progress notes on 05/03 and 05/04. History/Risk Factors: Patient has a history of pulmonary hypertension, COPD, pulmonary hypertension and chronic respiratory failure. Clinical Indicators: Leg edema, shortness of breath and per H&P, telemetry showed episodes of multifocal atrial tachycardia and other times atrial fibrillation. Labs: Echo results: Systolic function is normal with an EF greater than 55%. Radiology results: Atelectasis. No heart failure. Treatment: IV Lasix, 02 per nasal cannula at 2 lpm In your professional opinion, can you please specify the type of Cor Pulmonale if known? Acute Cor pulmonale Chronic Cor pulmonale Unable to determine Other, please specify If known, please specify if Cor Pulmonale is due to: Saddle Pulmonary Embolism Septic Pulmonary Embolism Pulmonary Hypertension Other, please specify Unable to determine MTDD
--- NOTE | 2018-05-11 08:14 | CDI ---
Last Revision, June 2017 Documentation Clarification Form Date: 05/11/18 From: Diane Strong Phone: If you have a question regarding this query, please contact Dinora Mccartney at [phone] between 8am and 5pm. Admit Date: 04/29/2018 8:06:00 PM Patient Name: Nay Zaidi Visit Number: [id number] Discharge Date: 05/04/18 ATTENTION: The Clinical Documentation Specialists (CDI) and [facility] Coding Staff appreciate your assistance in clarifying documentation. Please respond to the clarification below the line at the bottom and electronically sign. The CDI & [facility] Coding staff will review the response and follow-up if needed. Please note: Queries are made part of the Legal Health Record. If you have any questions, please contact the author of this message via ITS. Josh Cueva MD Thank you for signing your previous query. Please document a response before signing this query. Cor Pulmonale is documented in the H&P, your progress notes from 05/01 - 05/[address] Pickard's progress notes on 05/03 and 05/04. History/Risk Factors: Patient has a history of pulmonary hypertension, COPD, pulmonary hypertension and chronic respiratory failure. Clinical Indicators: Leg edema, shortness of breath and per H&P, telemetry showed episodes of multifocal atrial tachycardia and other times atrial fibrillation. Labs: Echo results: Systolic function is normal with an EF greater than 55%. Radiology results: Atelectasis. No heart failure. Treatment: IV Lasix, 02 per nasal cannula at 2 lpm In your professional opinion, can you please specify the type of Cor Pulmonale if known? Acute Cor pulmonale Chronic Cor pulmonale Unable to determine Other, please specify If known, please specify if Cor Pulmonale is due to: Saddle Pulmonary Embolism Septic Pulmonary Embolism Pulmonary Hypertension Other, please specify Unable to determine MTDD
--- NOTE | 2018-05-20 06:03 | P.DS ---
Providers Date of admission: 04/29/18 20:06 Attending physician: Josh Santamaria Consults: 04/28/18 21:14 Consult Physician Routine Consulting Provider: John De La Vega Consult Reason/Comments: Dyspnea; Edema Do you want consulting provider notified?: Yes Primary care physician: Josh Santamaria [facility] Course: addendum: Patient with long standing h/o copd now advanced to GOLD classificationl 4 , with clinical evidence of chronic cor pulmonale with probable chronic pulmonary hypertension Patient Condition at Discharge: Serious Plan - Discharge Summary Discharge Rx Participant: No New Discharge Prescriptions: New Apixaban [Eliquis] 5 mg PO BID tab Furosemide [Lasix] 20 mg PO DAILY tab Gabapentin [Neurontin] 100 mg PO TID cap Metoprolol Tartrate [Lopressor] 25 mg PO BID tab predniSONE 5 mg PO DIRECTED tab Continue Ipratropium Nebulized [Atrovent Nebulized] 0.5 mg INHALATION RT-QID #120 nebu Gabapentin [Neurontin] 300 mg PO TID cap Potassium Chloride ER [K-Dur 20] 20 meq PO DAILY tab.er.prt Pravastatin Sodium [Pravachol] 40 mg PO HS tab Spironolactone-Hctz 25-25Mg [Aldactazide 25-25 MG] 1 tab PO DAILY HYDROcodone/APAP 5-325MG [[place] 5-325] 1 tab PO QID Furosemide [Lasix] 20 mg PO DAILY PRN PRN Reason: Edema Albuterol Nebulized [Ventolin Nebulized] 2.5 mg INHALATION RT-BID Albuterol Sulfate [Proair Hfa] 2 puff INHALATION RT-QID PRN PRN Reason: Shortness Of Breath Or Wheezing Budesonide [Pulmicort] 0.5 mg INHALATION RT-BID Formoterol Fumarate [Perforomist] 20 mcg INHALATION RT-BID Mucinex Fast-Max D M 1 dose PO QID PRN PRN Reason: Congestion Cholecalciferol [Vitamin D3] 2,000 unit PO DAILY Cyanocobalamin [Vitamin B-12] 1,000 mcg PO DAILY Tiotropium 18 Mcg/Puff [Spiriva] 1 cap INHALATION RT-DAILY Theophylline 24 Hour [Andi-24] 300 mg PO DAILY LORazepam [Ativan] 1 mg PO BID PRN PRN Reason: Anxiety Multivitamins, Thera [Multivitamin (formulary)] 1 tab PO DAILY Metolazone [Zaroxolyn] 2.5 mg PO DAILY Tofacitinib Citrate [Xeljanz Xr] 11 mg PO DAILY Ipratropium-Albuterol Nebulize [Duoneb 0.5 mg-3 mg/3 ml Soln] 3 ml INHALATION RT-BID PRN PRN Reason: Shortness Of Breath Discontinued Carvedilol [Coreg] 12.5 mg PO BID Discharge Medication List Ipratropium Nebulized [Atrovent Nebulized] 0.5 mg INHALATION RT-QID #120 nebu [Rx] Gabapentin [Neurontin] 300 mg PO TID cap 05/18/15 [Rx] Potassium Chloride ER [K-Dur 20] 20 meq PO DAILY tab.er.prt 05/18/15 [Rx] Pravastatin Sodium [Pravachol] 40 mg PO HS tab 05/18/15 [Rx] HYDROcodone/APAP 5-325MG [[place] 5-325] 1 tab PO QID 08/24/15 [History] Spironolactone-Hctz 25-25Mg [Aldactazide 25-25 MG] 1 tab PO DAILY 08/24/15 [ History] Furosemide [Lasix] 20 mg PO DAILY PRN 11/22/15 [History] Albuterol Nebulized [Ventolin Nebulized] 2.5 mg INHALATION RT-BID 01/18/16 [ History] Albuterol Sulfate [Proair Hfa] 2 puff INHALATION RT-QID PRN 01/18/16 [History] Budesonide [Pulmicort] 0.5 mg INHALATION RT-BID 01/18/16 [History] Cholecalciferol [Vitamin D3] 2,000 unit PO DAILY 01/18/16 [History] Cyanocobalamin [Vitamin B-12] 1,000 mcg PO DAILY 01/18/16 [History] Formoterol Fumarate [Perforomist] 20 mcg INHALATION RT-BID 01/18/16 [History] Mucinex Fast-Max D M 1 dose PO QID PRN 01/18/16 [History] Tiotropium 18 Mcg/Puff [Spiriva] 1 cap INHALATION RT-DAILY 01/18/16 [History] Theophylline 24 Hour [Andi-24] 300 mg PO DAILY 05/12/16 [History] Ipratropium-Albuterol Nebulize [Duoneb 0.5 mg-3 mg/3 ml Soln] 3 ml INHALATION RT -BID PRN 04/28/18 [History] LORazepam [Ativan] 1 mg PO BID PRN 04/28/18 [History] Metolazone [Zaroxolyn] 2.5 mg PO DAILY 04/28/18 [History] Multivitamins, Thera [Multivitamin (formulary)] 1 tab PO DAILY 04/28/18 [History ] Tofacitinib Citrate [Xeljanz Xr] 11 mg PO DAILY 04/28/18 [History] Apixaban [Eliquis] 5 mg PO BID tab 05/03/18 [Rx] Furosemide [Lasix] 20 mg PO DAILY tab 05/03/18 [Rx] Gabapentin [Neurontin] 100 mg PO TID cap 05/03/18 [Rx] Metoprolol Tartrate [Lopressor] 25 mg PO BID tab 05/03/18 [Rx] predniSONE 5 mg PO DIRECTED tab 05/03/18 [Rx] Follow up Appointment(s)/Referral(s): Scarlet Bueno MD [STAFF PHYSICIAN] - 1 Week Josh Santamaria MD [Primary Care Provider] - 1-2 days Patient Instructions/Handouts: Heart Failure (DC), Heart Healthy Diet (DC), Edema (DC) Discharge Disposition: TRANSFER TO SNF/ECF
--- NOTE | 2018-05-28 08:23 | CDI ---
Last Revision, June 2017 Documentation Clarification Form Date: 05/28/18 From: Diane Strong Phone: If you have a question regarding this query, please contact Dinora Mccartney at [phone] Admit Date: 04/29/2018 8:06:00 PM Patient Name: Nay Zaidi Visit Number: [id number] Discharge Date: 05/04/18 ATTENTION: The Clinical Documentation Specialists (CDI) and [facility] Coding Staff appreciate your assistance in clarifying documentation. Please respond to the clarification below the line at the bottom and electronically sign. The CDI & [facility] Coding staff will review the response and follow-up if needed. Please note: Queries are made part of the Legal Health Record. If you have any questions, please contact the author of this message via ITS. Josh Bustillos MD Per pulmonary consult documentation throughout the stay, the patient's COPD is inactive and stable. Per your 05/02 & 05/04 progress notes the patient's has acute on chronic respiratory failure. The patient presented with the following respiratory symptoms shortness of breath and tachycardia. Per the phys exam in the H&P, the patient is mildly short of breath with distant cough in the first H&P. Review of systems in the 2nd H&P documents chronic shortness of breath and chronic cough. Documentation: Chronic respiratory failure is documented in the H&P History/Risk Factors: Patient has advanced COPD, cor pulmonale, pulmonary hypertension and CHF. There is no documentation of worsening of COPD. Tobacco use: Former smoker Home oxygen: Patient reports home oxygen Clinical Indicators: Tachycardia, short of breath which is chronic, edema. Vital signs: T. 98.6, P. 88 on admission, 108 -110 3 times on 04/29, R. 18 - 24 , BP 157/94 Pulse oximetry: 92% - 97% Lung/Breathing assessment: Dr. Bueno documents in his progress notes that the patient has significant dyspnea on minimal exertion. Shortness of breath is chronic but basically the same . Treatment: Theophylline PO Breathing tx: Albuterol nebulizer, Pulmicort inhalation, Perforomist, O2 2 L per nasal cannula In your professional opinion, can you please clarify if these findings signify one of the following conditions? Acuity: Acute Chronic Acute on Chronic Other Diagnosis, please specify Unable to determine MTDD
--- NOTE | 2018-05-28 08:39 | CDI ---
Last Revision, June 2017 Documentation Clarification Form Date: 05/28/18 From: Diane Ligia Phone: If you have a question regarding this query, please contact Dinora Mccartney at [phone] between 8am and 5pm. Admit Date: 04/29/2018 8:06:00 PM Patient Name: Nay Zaidi Visit Number: [id number] Discharge Date: 05/04/18 ATTENTION: The Clinical Documentation Specialists (CDI) and [facility] Coding Staff appreciate your assistance in clarifying documentation. Please respond to the clarification below the line at the bottom and electronically sign. The CDI & [facility] Coding staff will review the response and follow-up if needed. Please note: Queries are made part of the Legal Health Record. If you have any questions, please contact the author of this message via ITS. Josh Bustillos MD Dr. Haidar documents acute exacerbation of diastolic congestive heart failure. H&P states no evidence of any right sided heart failure. There is no other documentation of heart failure in the record. History/Risk Factors: Patient has a history of hypertension, pulmonary hypertension, cor pulmonale and COPD. Clinical Indicators: Edema and dyspnea on exertion. VS/Pulse OX: T. 98.6, P. 88, R. 18, Bp 157/94, Pulse Ox 97% BNP: 231 Echocardiogram Results: LV sixe, wall thickness and systolic function are normal, with and EF greater than 55% Chest X Ray: There is new atelectasis at the right lung base compared to old exam. No heart failure. Treatment: IV Lasix In your professional opinion, can you please clarify the acuity and type of CHF if known? Diastolic Heart Failure: Acute Chronic Acute on Chronic Systolic & Diastolic Heart Failure: Acute Chronic Acute on Chronic Systolic & diastolic Heart Failure Unable to Determine Other, please specify MTDD
--- NOTE | 2018-06-02 23:05 | DS ---
DISCHARGE SUMMARY ADDENDUM: To the patient's discharge summary. DIAGNOSES: Right-sided congestive cardiac failure secondary to pulmonary hypertension and cor pulmonale. Because of this, patient required Lasix. I see no evidence of any diastolic dysfunction or systolic dysfunction. MMRACHELL / IJN: [id number] /
--- NOTE | 2018-06-02 23:05 | DS ---
DISCHARGE SUMMARY ADDENDUM: ATTENDING PHYSICIAN: Dr. Ladarius Santamaria. ADDENDUM TO DIAGNOSES: 1. Acute on chronic respiratory failure. 2. The patient has severe chronic obstructive pulmonary disease with mild activity. 3. The patient has significant shortness of breath. 4. She has chronic hypoxia with chronic respiratory failure. Exacerbated with brief episodes of acute respiratory failure. MMODL / IJN: [id number] /
--- NOTE | 2018-06-03 07:48 | CDI ---
Last Revision, June 2017 Documentation Clarification Form Date: 05/28/2018 8:21:00 AM From: Diane Strong Phone: If you have a question regarding this query, please contact Dinora Mccartney at [phone] between 8am and 5pm. Admit Date: 04/29/2018 8:06:00 PM Patient Name: Nay Zaidi Visit Number: [id number] Discharge Date: 05/04/18 ATTENTION: The Clinical Documentation Specialists (CDI) and [facility] Coding Staff appreciate your assistance in clarifying documentation. Please respond to the clarification below the line at the bottom and electronically sign. The CDI & [facility] Coding staff will review the response and follow-up if needed. Please note: Queries are made part of the Legal Health Record. If you have any questions, please contact the author of this message via ITS. Josh Cueva MD The patient presented with the following respiratory symptoms shortness of breath and tachycardia. Per the physical exam in the H&P the patient is mildly short of breath with distant cough in the first H&P. Review of systems in the second H&P documents chronic shortness of breath and chronic cough. Chronic respiratory failure is documented in the H&P. Per your 05/02 & 05/04 progress notes the patient has acute on chronic respiratory failure. Per pulmonary consult documentation throughout the stay, the patient's COPD is inactive and stable. History/Risk Factors: Patient has advanced COPD, cor pulmonale, pulmonary hypertension and CHF. There is no documentation of worsening of COPD. Tobacco use: Former smoker Home oxygen: Patient reports home oxygen Clinical Indicators: Tachycardia, short of breath which is chronic, edema. Vital signs: T. 98.6, P. 88 on admission, 108 -110 3 times on 04/29, R. 18 - 24 , BP 157/94 Pulse oximetry: 92% - 97% Lung/Breathing assessment: Dr. Bueno documents in his progress notes that the patient has significant dyspnea on minimal exertion. Shortness of breath is chronic but basically the same . Treatment: Theophylline PO Breathing tx: Albuterol nebulizer, Pulmicort inhalation, Perforomist, O2 2 L per nasal cannula In your professional opinion, can you please clarify the acuity of the respiratory failure? Acute Chronic Acute on Chronic Other Diagnosis, please specify Unable to determine MTDD
== END 2018-05-04 17:00 | DRG 308 ==
LOC: EC 17:20 → OBSVTOIN 21:02 → INTOOBSV 21:02 → 3SUR 21:02 → OBSVTOIN 04-29 20:06 → 6SEL 04-29 20:10 → 3SCARD 05-02 11:05
PROVIDERS: ADMIT Internal Medicine; ATTEND Internal Medicine
DX: I48.91 Unspecified atrial fibrillation (principal); J96.21 Acute and chronic respiratory failure with hypoxia; E87.1 Hypo-osmolality and hyponatremia; J98.11 Atelectasis; L03.115 Cellulitis of right lower limb; L03.116 Cellulitis of left lower limb; E24.2 Drug-induced Cushing's syndrome; J43.9 Emphysema, unspecified; I27.81 Cor pulmonale (chronic); I47.1 Supraventricular tachycardia; L89.321 Pressure ulcer of left buttock, stage 1; L89.311 Pressure ulcer of right buttock, stage 1; E09.65 Drug or chemical induced diabetes mellitus with hyperglycemia; I27.29 Other secondary pulmonary hypertension; E78.5 Hyperlipidemia, unspecified; T50.1X6A Underdosing of loop [high-ceiling] diuretics, initial encounter; T50.2X6A Underdosing of carbonic-anhydrase inhibitors, benzothiadiazides and other diuretics, initial encounter; E87.6 Hypokalemia; F41.9 Anxiety disorder, unspecified; G89.29 Other chronic pain; I10 Essential (primary) hypertension; M06.9 Rheumatoid arthritis, unspecified; T38.0X5A Adverse effect of glucocorticoids and synthetic analogues, initial encounter; T42.6X5A Adverse effect of other antiepileptic and sedative-hypnotic drugs, initial encounter; R60.9 Edema, unspecified; M19.90 Unspecified osteoarthritis, unspecified site; I49.1 Atrial premature depolarization; H91.90 Unspecified hearing loss, unspecified ear; H26.9 Unspecified cataract; Z91.128 Patient's intentional underdosing of medication regimen for other reason; Z99.81 Dependence on supplemental oxygen; Z87.891 Personal history of nicotine dependence; Z79.52 Long term (current) use of systemic steroids; Z79.01 Long term (current) use of anticoagulants; Z79.899 Other long term (current) drug therapy; Z88.5 Allergy status to narcotic agent; Z88.8 Allergy status to other drugs, medicaments and biological substances; Z90.49 Acquired absence of other specified parts of digestive tract; Z98.51 Tubal ligation status; Z98.1 Arthrodesis status; Z85.828 Personal history of other malignant neoplasm of skin; Z82.5 Family history of asthma and other chronic lower respiratory diseases
CPT/HCPCS: 36415; 71046; 80048; 80053; 81003; 82550; 82553; 83735; 83880; 84484; 85025; 85610; 85652; 85730; 93005; 93306; 93970; 94640; 94760; 96374; 99284

== ENCOUNTER 2018-08-17 23:58 | Inpatient (IN) | payer MEDICARE, BC, OTHER ==
[2018-08-18] MEDS ORDERED: LEVOFLOXACIN 750MG-D5W PMX 750 MG in DEXTROSE/WATER 1 150ML.BAG IVPB STA (00:11)
[2018-08-18] MEDS ORDERED: PIPERACILLIN-TAZOBACTAM 3.375 GM in SODIUM CHLORIDE 0.9% 100 ML IVPB STA (00:11)
[2018-08-18] MEDS ORDERED: PNEUMONIA PROTOCOL UTILIZED 1 EACH MISC PO PRN (00:11)
[2018-08-18] MEDS: SODIUM CHLORIDE 0.9% 1,000 ML IV SCH (00:59)
[2018-08-18 01:13] LABS: Basophils % (A) 0 %; Eosinophils % (A) 0 %; HCT 44.3 % (34.0-46.0); Lymphocytes # (A) 0.6 k/uL (1.0-4.8); Lymphocytes % (A) 9 %; MCH 29.8 pg (25.0-35.0); MCHC 32.2 g/dL (31.0-37.0); MCV 92.6 fL (80.0-100.0); Monocytes # (A) 0.4 k/uL (0-1.0); Monocytes % (A) 6 %; Neutrophils # (A) 5.6 k/uL (1.3-7.7); Neutrophils % (A) 84 %; Platelet Count 266 k/uL (150-450); RBC 4.78 m/uL (3.80-5.40); RDW 15.2 % (11.5-15.5); WBC 6.7 k/uL (3.8-10.6)
[2018-08-18 01:17] LABS: HGB 14.2 gm/dL (11.4-16.0)
[2018-08-18 01:23] LABS: Anion Gap 10 mmol/L; Blood Urea Nitrogen 22 mg/dL (7-17); Calcium 9.8 mg/dL (8.4-10.2); Carbon Dioxide 32 mmol/L (22-30); Chloride 91 mmol/L (98-107); Glucose 180 mg/dL (74-99); Potassium 3.3 mmol/L (3.5-5.1); Sodium 133 mmol/L (137-145)
--- NOTE | 2018-08-18 01:49 | XR ---
EXAMINATION TYPE: XR chest 1V portable DATE OF EXAM: 08/18/2018 COMPARISON: 05/13/2018 HISTORY: COPD short of breath TECHNIQUE: Single frontal view of the chest is obtained. FINDINGS: There is poor inspiration with some linear interstitial infiltrate and atelectasis at the lung bases. There is no heart failure. Thoracic aorta is atheromatous. IMPRESSION: Increasing Mild infiltrates and atelectasis at the lung bases compared to old exam.
[2018-08-18] MEDS ORDERED: POTASSIUM CHLORIDE ER 20 MEQ TAB.ER PO STA (02:30)
[2018-08-18] MEDS ORDERED: ALBUTEROL NEBULIZED 2.5 MG/3 ML INHALATION STA (02:49)
[2018-08-18] MEDS ORDERED: HYDROcodone/APAP 5-325MG 1 EACH TAB PO STA (02:53)
[2018-08-18] MEDS ORDERED: LORazepam 1 MG TAB PO STA (02:53)
[2018-08-18] MEDS ORDERED: DILTIAZEM DRIP BOLUS FROM BAG 1 MG SOLN IV ONE (05:00)
[2018-08-18 05:40] LABS: Appearance,Urine Clear (Clear); Bilirubin,Urine Negative (Negative); Blood,Urine Small (Negative); Color,Urine Yellow; Glucose,Urine (UA) 2+ (Negative); Hyaline Casts,Urine 9 /lpf (0-2); Ketones,Urine Negative (Negative); Leukocyte Esterase,Urine Negative (Negative); Mucus,Urine Rare /hpf; Nitrite,Urine Negative (Negative); Protein,Urine Trace (Negative); RBC,Urine 9 /hpf (0-5); Specific Gravity,Urine 1.022 (1.001-1.035); Squamous Epithelial Cell,Urine <1 /hpf (0-4); Urobilinogen,Urine <2.0 mg/dL (<2.0); WBC,Urine 1 /hpf (0-5)
[2018-08-18] MEDS ORDERED: guaiFENesin-DM 100-10MG/5ML 10 ML CUP PO PRN (06:00)
[2018-08-18] MEDS ORDERED: LORazepam 1 MG TAB PO PRN (06:00)
[2018-08-18] MEDS: DILTIAZEM 50 MG in SODIUM CHLORIDE 0.9% 40 ML IV SCH ×2 (06:48→15:47)
[2018-08-18] MEDS: IPRATROPIUM-ALBUTEROL 3 ML NEB INHALATION PRN ×2 (07:27→12:06)
[2018-08-18] MEDS: FORMOTEROL FUMARATE 20 MCG/2 ML NEBU INHALATION SCH ×2 (07:30→19:33)
[2018-08-18] MEDS ORDERED: BUDESONIDE 0.5 MG/2 ML NEBU INHALATION SCH ×2 (08:00→20:00)
[2018-08-18] MEDS ORDERED: methylPREDNISolone SOD SUCCI 125 MG/2 ML VIAL IV SCH (08:00)
[2018-08-18] MEDS: POTASSIUM CHLORIDE ER 20 MEQ TAB.ER PO SCH (08:25)
[2018-08-18] MEDS: HYDROcodone/APAP 5-325MG 1 EACH TAB PO SCH ×4 (08:25→23:27)
[2018-08-18] MEDS: CYANOCOBALAMIN 500 MCG TAB PO SCH (08:26)
[2018-08-18] MEDS: MULTIVITAMINS, THERA 1 EACH TAB PO SCH (08:26)
[2018-08-18] MEDS: CHOLECALCIFEROL 1,000 UNIT TAB PO SCH (08:27)
[2018-08-18] MEDS: SENNOSIDES 8.6 MG TAB PO SCH (08:27)
[2018-08-18] MEDS: METOLAZONE 2.5 MG TAB PO SCH (08:27)
[2018-08-18] MEDS: GABAPENTIN 100 MG CAP PO SCH ×3 (08:27→19:42)
[2018-08-18] MEDS: METOPROLOL TARTRATE 25 MG TAB PO SCH ×2 (08:28→19:46)
[2018-08-18] MEDS: SPIRONOLACTONE-HCTZ 25-25MG 1 EACH TAB PO SCH (08:28)
[2018-08-18] MEDS: APIXABAN 5 MG TAB PO SCH ×2 (08:28→19:43)
--- NOTE | 2018-08-18 08:55 | ED ---
SOB HPI - General Chief Complaint: Shortness of Breath Stated Complaint: TRACE Time Seen by Provider: 08/18/18 00:11 Source: patient Mode of arrival: EMS Limitations: no limitations - History of Present Illness Initial Comments: This patient is a 68-year-old woman who was sent in from the [facility] to be admitted for pneumonia. The patient has had a few days of worsening cough, shortness of breath. The chest x-ray was performed at the [facility] which has reportedly shown a right lower lobe infiltrate. The patient also has been feeling hot and cold at times, though unsure if there was actual documented fever. The patient states that the cough does have some thicker sputum than is her usual. No hemoptysis. Patient denies changes in bowel movements or urination. No leg pain or swelling. MD Complaint: shortness of breath, cough -: days(s) Consistency: constant Improves With: oxygen Worsens With: nothing Known History Of: COPD, congestive heart failure Associated Symptoms: cough - Related Data Home Medications Medication Instructions Recorded Confirmed HYDROcodone/APAP 5-325MG [[place] 1 tab PO QID 08/24/15 08/18/18 5-325] Albuterol Sulfate [Proair Hfa] 2 puff INHALATION RT-QID PRN 01/18/16 08/18/18 Budesonide [Pulmicort] 0.5 mg INHALATION RT-BID 01/18/16 08/18/18 Cholecalciferol [Vitamin D3] 2,000 unit PO DAILY 01/18/16 08/18/18 Cyanocobalamin [Vitamin B-12] 1,000 mcg PO DAILY 01/18/16 08/18/18 Formoterol Fumarate [Perforomist] 20 mcg INHALATION RT-BID 01/18/16 08/18/18 Mucinex Fast-Max D M 1 dose PO QID PRN 01/18/16 08/18/18 Tiotropium 18 Mcg/Puff [Spiriva] 1 cap INHALATION RT-DAILY 01/18/16 08/18/18 Theophylline 24 Hour [Andi-24] 300 mg PO DAILY 05/12/16 08/18/18 Ipratropium-Albuterol Nebulize 3 ml INHALATION RT-BID PRN 04/28/18 08/18/18 [Duoneb 0.5 mg-3 mg/3 ml Soln] LORazepam [Ativan] 1 mg PO Q6H PRN 04/28/18 08/18/18 Multivitamins, Thera [Multivitamin 1 tab PO DAILY 04/28/18 08/18/18 (formulary)] Tofacitinib Citrate [Xeljanz Xr] 11 mg PO DAILY 04/28/18 08/18/18 Acetaminophen Tab [Tylenol Tab] 650 mg PO Q4H PRN 08/18/18 08/18/18 Albuterol Sulfate [Proair Hfa] 2 puff INHALATION RT-QID PRN 08/18/18 08/18/18 Bisacodyl [Dulcolax] 10 mg RECTAL DAILY PRN 08/18/18 08/18/18 Menthol [Biofreeze] 1 applic TOPICAL TID PRN 08/18/18 08/18/18 Metoclopramide [Reglan] 10 mg PO TID PRN 08/18/18 08/18/18 Metolazone [Zaroxolyn] 2.5 mg PO DAILY 08/18/18 08/18/18 Metoprolol Tartrate [Lopressor] 25 mg PO DAILY 08/18/18 08/18/18 Mucinex Fast Max Dm 400/20ml 400 ml PO QID PRN 08/18/18 08/18/18 Sennosides [Senna] 8.6 mg PO DAILY 08/18/18 08/18/18 Spironolactone [Aldactone] 25 mg PO DAILY 08/18/18 08/18/18 predniSONE 60 mg PO DAILY 08/18/18 08/18/18 Previous Rx's Medication Instructions Recorded Ipratropium Nebulized [Atrovent 0.5 mg INHALATION RT-QID #120 nebu 08/21/14 Nebulized 0.2 MG/ML] Potassium Chloride ER [K-Dur 20] 20 meq PO DAILY tab.er.prt 05/18/15 Pravastatin Sodium [Pravachol] 40 mg PO HS tab 05/18/15 Apixaban [Eliquis] 5 mg PO BID tab 05/03/18 Furosemide [Lasix] 20 mg PO DAILY tab 05/03/18 Gabapentin [Neurontin] 100 mg PO TID cap 05/03/18 Allergies Allergy/AdvReac Type Severity Reaction Status Date / Time benazepril HCl AdvReac Confusion Verified 08/18/18 06:45 [From Lotensin] morphine AdvReac Nausea & Verified 08/18/18 06:45 Vomiting Review of Systems ROS Statement: Those systems with pertinent positive or pertinent negative responses have been documented in the HPI. ROS Other: All systems not noted in ROS Statement are negative. Constitutional: Reports: as per HPI, fever Respiratory: Reports: cough, dyspnea, wheezes. Denies: hemoptysis Cardiovascular: Denies: chest pain, palpitations, orthopnea, edema, syncope Gastrointestinal: Denies: abdominal pain, vomiting, diarrhea Genitourinary: Denies: dysuria Musculoskeletal: Denies: back pain Skin: Denies: rash Neurological: Denies: headache, weakness, numbness Past Medical History Past Medical History: COPD, Hyperlipidemia, Hypertension, Osteoarthritis (OA), Rheumatoid Arthritis (RA) Additional Past Medical History / Comment(s): home o2 2 liters n/c, pt stated was told by dr not walk > 25 ft without her o2 on.past broke rt wrist, catatracts natalie, bronchitis, emphysema, skin cancer lt upper arm History of Any Multi-Drug Resistant Organisms: None Reported Past Surgical History: Appendectomy, Back Surgery, Section, Tubal Ligation Additional Past Surgical History / Comment(s): colonoscopy. natalie breast bx-neg, microlarygoscopy x3, back fusion w/hardware, natalie bunionectomy,skin ca removed lt upper arm ,hammer toe sx has screw in great toe,rt hand joint replacment to index finger and fusions to index and 4th finger, lt hand thumb joint replaced and fusion to first 2 finger tips. orif rt wrist has plate screw. Past Anesthesia/Blood Transfusion Reactions: No Reported Reaction Past Psychological History: No Psychological Hx Reported Smoking Status: Former smoker Past Alcohol Use History: None Reported Past Drug Use History: None Reported - Past Family History Mother Additional Family Medical History / Comment(s): aterscolerotic disease; Father Additional Family Medical History / Comment(s): of car accident Sister(s) Additional Family Medical History / Comment(s): breast cancer in 2013 with remission General Exam Limitations: no limitations General appearance: alert, in no apparent distress Head exam: Present: atraumatic, normocephalic Eye exam: Present: normal appearance. Absent: scleral icterus, conjunctival injection ENT exam: Present: normal oropharynx Neck exam: Present: normal inspection Respiratory exam: Present: respiratory distress, wheezes. Absent: rales, rhonchi, accessory muscle use, decreased breath sounds, prolonged expiratory Cardiovascular Exam: Present: regular rate, normal rhythm, normal heart sounds. Absent: systolic murmur, diastolic murmur, rubs, gallop GI/Abdominal exam: Present: soft. Absent: distended, tenderness, guarding, rebound, mass Extremities exam: Present: normal inspection, normal capillary refill. Absent: pedal edema, calf tenderness Back exam: Present: normal inspection. Absent: CVA tenderness (R), CVA tenderness (L) Skin exam: Present: warm, dry, intact, normal color. Absent: rash Course Vital Signs 08/18/18 08/18/18 08/18/18 00:02 01:00 02:00 Temperature 98.2 F Pulse Rate 75 140 H 123 H Respiratory 22 47 H 31 H Rate Blood Pressure 150/104 139/98 O2 Sat by Pulse 97 95 96 Oximetry 08/18/18 08/18/18 08/18/18 02:57 03:00 03:06 Temperature Pulse Rate 124 H 117 H 121 H Respiratory 20 Rate Blood Pressure 117/82 O2 Sat by Pulse 95 Oximetry 08/18/18 08/18/18 08/18/18 04:00 05:00 06:00 Temperature Pulse Rate 116 H 122 H 116 H Respiratory 19 20 20 Rate Blood Pressure 137/99 139/111 O2 Sat by Pulse 95 96 97 Oximetry 08/18/18 08/18/18 08/18/18 07:17 07:30 07:49 Temperature Pulse Rate 114 H 106 H 112 H Respiratory 18 22 Rate Blood Pressure 130/103 O2 Sat by Pulse 96 Oximetry 08/18/18 08/18/18 07:50 07:58 Temperature Pulse Rate 112 H 122 H Respiratory 24 Rate Blood Pressure O2 Sat by Pulse Oximetry Medical Decision Making - Medical Decision Making Patient is a 68-year-old woman transferred from the [facility] to be admitted for pneumonia. Case discussed with her physician Dr. Santamaria. Will also have pulmonology consultation. Antibiotics started in emergency Department and the patient is feeling better following nebulized treatment. - Lab Data Result diagrams: 08/18/18 00:53 08/18/18 00:53 Disposition Clinical Impression: COPD (chronic obstructive pulmonary disease), Pneumonia Disposition: ADMITTED IP TO THIS HOSP Condition: Fair Is patient prescribed a controlled substance at d/c from ED?: No
[2018-08-18] MEDS: methylPREDNISolone SOD SUCCI 125 MG/2 ML VIAL IV SCH ×3 (12:35→23:26)
[2018-08-18] MEDS: PIPERACILLIN-TAZOBACTAM 3.375 GM in SODIUM CHLORIDE 0.9% 100 ML IVPB SCH ×2 (12:36→21:04)
[2018-08-18] MEDS: LORazepam 1 MG TAB PO PRN ×2 (14:08→23:28)
--- NOTE | 2018-08-18 15:34 | CONS ---
CONSULTATION PULMONARY/CRITICAL CARE CONSULTATION: DATE OF SERVICE: 08/18/2018 This is a 68-year-old female who typically sees Dr. Santamaria as a primary and my partner, Dr. De La Vega as her lung doctor. She now resides permanently at [facility] and has been there since April. She was sent in from the care home for a couple days of "not feeling well." She was thought to have possible underlying pneumonia. The patient had complaints of cough and yellow/green phlegm production. She also had shortness of breath and wheezing. She also had a temperature elevation. She feels like the care home was not really noticing that she was sick and that is why they did not send her in sooner. She had a chest x-ray in the emergency department which showed evidence of some very minimal patchy bibasilar infiltrates. For that reason, she was being admitted for pneumonia. She is feeling about the same this morning as she was when she first came in. She is still very short of breath. She has an audible rumble when you stand close to her and just listen to her breathing pattern. Again, her chest x-ray was not particularly impressive. MEDICATIONS: Reviewed. She is on Spicer, albuterol inhaler, Pulmicort updrafts, vitamin D3, vitamin B12, Perforomist updrafts, Mucinex, Spiriva, theophylline 24 hour updrafts with albuterol, Ativan, multivitamins, Xeljanz, Tylenol, Dulcolax, Biofreeze, Reglan, Zaroxolyn, Lopressor, Mucinex, senna, Aldactone, and prednisone. Also, she has been on potassium replacement, pravastatin, Eliquis, Lasix, and Neurontin. ALLERGIES: BENAZEPRIL and MORPHINE. MEDICAL HISTORY: COPD which is quite severe, hyperlipidemia, hypertension, DJD, rheumatoid arthritis, chronic hypoxemic respiratory failure with oxygen therapy, fractured right wrist, bilateral cataracts, multiple episodes of COPD exacerbation and bronchitis, skin cancer. SURGICAL HISTORY: Includes among other things appendectomy, back surgery, , tubal ligation, colonoscopy, bilateral breast biopsies, bunionectomy, skin cancer removal, and other surgical mostly orthopedic procedures. SOCIAL HISTORY: Positive for previous heavy tobacco use. She does not smoke currently. She denies any alcohol or illicit drug use. FAMILY HISTORY: Positive for cardiac disease, ASHD, car accident, breast cancer, etc. REVIEW OF SYSTEMS: CONSTITUTIONAL: Weakness and fever. NEUROLOGIC: Negative. HEENT: Negative. CARDIOVASCULAR: Negative. PULMONARY: Shortness of breath, chest tightness, wheezing, cough, yellow-green phlegm production and chest congestion. GI/: Negative. RHEUMATOLOGIC/HEMATOLOGIC: Negative. ENDOCRINOLOGIC: Negative. DERMATOLOGIC: Negative. Vital signs are reviewed. Temperature is 99, heart rate 98, respiratory rate 22 , blood pressure 145/98, mean 113, 2 L saturation 95%. The patient is exhibiting some conversational dyspnea. She has no audible wheezing, but she does have an audible rumble to her chest when she inhales and exhales. HEENT examination is grossly unremarkable. Nasal O2 noted. Mucous membranes are moist. Neck is supple. Full range of motion. No adenopathy or thyromegaly. Neck veins are flat. Cardiovascular examination reveals regular rhythm and rate. Heart sounds are barely able to be heard. They are obscured by her adventitious lung sounds. Lungs reveal coarse inspiratory and expiratory rhonchi. There is some expiratory wheezes. No crackles. Breath sounds are equal bilaterally but diminished throughout. Abdomen is soft. Bowel sounds are heard. Extremities are intact. No cyanosis, clubbing, or edema. Skin without rash. Neurologic examination is brief but nonfocal. LABS: Reviewed. CBC is completely normal. Sodium 133, potassium 3.3, chloride is 91 , CO2 is 32, BUN and creatinine were 22 and 0.49. Urine is noted. CHEST X-RAY: Reviewed. There is very minimal patchy bibasilar infiltrates. Medications are reviewed. ASSESSMENT: 1. Chronic obstructive pulmonary disease exacerbation complicated by bibasilar pneumonia ( Health Care Acquired Pneumonia, HCAP ). 2. Chronic hypoxemic respiratory failure. 3. History of hyperlipidemia. 4. History of hypertension. 5. Degenerative joint disease. 6. History of rheumatoid arthritis. 7. History of cataracts. 8. Skin cancer. 9. Multiple orthopedic procedures and other surgical procedures as listed in the H and P provided by the ER physician. PLAN: The patient is doing reasonably well. The patient will be admitted inpatient. We adjusted her medications a bit. We increased her Solu-Medrol to 60 q.6. We also bumped her Pulmicort up to 1 mg mixed with Perforomist twice a day. She is maintained on her other appropriate medications. Will continue to follow. She was placed on piperacillin/tazobactam (Zosyn), for her healthcare acquired pneumonia. Additional recommendations and suggestions are forthcoming. Prognosis is guarded. Will continue to follow. Her COPD is quite severe. She may benefit from bronchoscopy down the road. MMODL / IJN: [id number] / MTDD
[2018-08-18] MEDS: IPRATROPIUM-ALBUTEROL 3 ML NEB INHALATION SCH ×3 (15:55→23:43)
[2018-08-18 17:24] LABS: Glucose,Whole Blood 151 mg/dL (75-99)
[2018-08-18] MEDS: BUDESONIDE 1 MG/2 ML NEBU INHALATION SCH (19:33)
[2018-08-18] MEDS: PRAVASTATIN SODIUM 40 MG TAB PO SCH (19:43)
[2018-08-18 21:37] LABS: Glucose,Whole Blood 144 mg/dL (75-99)
[2018-08-19] MEDS ORDERED: LEVOFLOXACIN 750MG-D5W PMX 750 MG in DEXTROSE/WATER 1 150ML.BAG IVPB SCH
[2018-08-19] MEDS: SODIUM CHLORIDE 0.9% 1,000 ML IV SCH ×2 (02:24→20:39)
[2018-08-19] MEDS: DILTIAZEM 50 MG in SODIUM CHLORIDE 0.9% 40 ML IV SCH (02:24)
[2018-08-19] MEDS: PIPERACILLIN-TAZOBACTAM 3.375 GM in SODIUM CHLORIDE 0.9% 100 ML IVPB SCH ×3 (04:34→20:39)
[2018-08-19] MEDS: IPRATROPIUM-ALBUTEROL 3 ML NEB INHALATION SCH ×6 (04:42→23:23)
--- NOTE | 2018-08-19 05:52 | HP ---
HISTORY AND PHYSICAL CHIEF COMPLAINT: Shortness of breath. HISTORY OF PRESENT ILLNESS: This 68-year-old female with known history of COPD with chronic respiratory failure was having increased shortness of breath. Chest x-ray suggested possible right lower lobe pneumonia at the nursing facility. In view of this, the patient has been transferred to this facility. The patient admitted in view of this. She denies any fever, chills. She has had no chest pain. Increased congestion. PAST MEDICAL HISTORY: Significant for COPD, rheumatoid arthritis, essential hypertension. No history of any liver disease, kidney disease, ulcers, TB, hepatitis. No history of rheumatic fever, myocardial infarction, CVA. History of paroxysmal atrial fibrillation. PAST SURGICAL HISTORY: Significant for appendectomy, lumbar surgery, foot surgery, breast biopsy. SOCIAL HISTORY: Patient is . She lives in a nursing facility. FAMILY MEDICAL HISTORY: Has a sister with degenerative arthritis. Also has an aunt with a history of carcinoma of the breast and COPD. She also had a CVA. The patient has had one , the child was given up for adoption. PERSONAL HISTORY: Ex-smoker, used too heavy, smoked for many years. Alcohol none, ALLERGIES: BENAZEPRIL, which causes her to have a cough. MORPHINE causes nausea, vomiting. MEDICATIONS: Medications at present include: 1. DuoNeb updrafts. 2. Prednisone, which was started at the nursing facility 60 mg daily; normally she takes 10 mg daily. 3. Xeljanz 11 mg daily. 4. Theophylline 24 daily. 5. Spironolactone 25 mg daily. 6. Senna daily. 7. Pravastatin 40 mg daily. 8. Potassium chloride 20 mEq daily. 9. Multivitamin daily. 10.Mucinex daily 600 mg. 11.Metoprolol tartrate 25 mg daily. 12.Metolazone 2.5 mg daily. 13.Reglan 10 mg b.i.d. t.i.d. 14.Lorazepam, Ativan, 1 mg p.r.n. . 15.Bourbon 5/325 q.i.d. 16.Gabapentin 100 mg t.i.d. 17.Lasix 20 mg daily. 18.Perforomist 20 mcg b.i.d. 19.Vitamin B12 daily. 20.Vitamin D3, 2000 units daily. 21.Pulmicort 0.5 b.i.d. 22.Dulcolax 10 mg rectal p.r.n. 23.Eliquis 5 mg b.i.d. 24.ProAir HFA p.r.n. SOCIAL HISTORY: Patient is at present living at nursing facility. REVIEW OF SYSTEMS: NEURO: Denies any headaches, dizziness. PSYCH: Chronic anxiety. CARDIAC: No chest pain, angina or palpitation. RESPIRATORY: Shortness of breath, cough. GI: No nausea, vomiting, abdominal pain, diarrhea, constipation. : No symptoms of dysuria, hematuria. EXTREMITIES: No edema. CONSTITUTIONAL: No fever, chills. MUSCULOSKELETAL: Generalized muscle weakness. Has a history of rheumatoid arthritis as well. PHYSICAL EXAMINATION: A pleasant 68-year-old female who appears chronically ill at present in mild respiratory distress. Vital signs reveals the patient is afebrile. Pulse 120 on the monitor. She has got multifocal atrial tachycardia at times vital signs the patient otherwise has tachycardia, respirations 22, blood pressure 130/103, pulse ox 96% on 2 L. HEENT: Normocephalic. Neck is supple. Pupils reactive. Oral cavity is dry. Ears reveal no drainage. NECK: Supple. No JVD. No carotid bruits. No thyromegaly. There is use of some accessory muscles. CHEST EXAMINATION: Increased AP diameter. Increased percussion note, bilateral generalized decreased air flow. Scattered rhonchi. End-expiratory wheezes. CARDIAC: Distant heart sounds. S1, S2 with no gallop. Systolic murmur 2/6 left sternal border. Irregular rhythm. ABDOMEN: Soft. Bowel sounds present. No organomegaly. No abdominal bruits. Extremities reveal no edema. Has parchment, very thin skin with traumatic ecchymoses both upper and lower extremities. NEUROLOGICALLY: Awake, alert, oriented x3 with well-coordinated movements both upper extremities and lower extremities. LABORATORY ASSESSMENT: CBC within normal limits. Sodium 133, potassium 3.3, chloride 91, CO2 content 32, BUN 22, creatinine 0.49. BNP 688. Glucose was 180 random. Urinalysis unremarkable. Chest x-ray reveals bilateral basilar infiltrates. ASSESSMENT: 1. Acute on chronic respiratory failure. 2. Acute exacerbation chronic obstructive pulmonary disease. 3. Possible pneumonia. 4. Hypertension. 5. Rheumatoid arthritis. PLAN: Patient is admitted to the hospital and been placed on Zosyn, updrafts, oxygen, steroids. I asked Pulmonary to evaluate the patient. Prognosis remains guarded. Discussed with the patient regarding code status including ventilator support. She is requesting that she be placed on a ventilator if need be. GENI / INESSAN: [id number] /
[2018-08-19 05:54] LABS: Glucose,Whole Blood 163 mg/dL (75-99)
[2018-08-19] MEDS: methylPREDNISolone SOD SUCCI 125 MG/2 ML VIAL IV SCH ×4 (06:26→22:42)
[2018-08-19] MEDS: INSULIN ASPART 100 UNIT/ML 1 ML 10 ML VIAL SQ SCH ×4 (06:28→20:38)
[2018-08-19] MEDS: LORazepam 1 MG TAB PO PRN ×3 (06:28→22:42)
[2018-08-19] MEDS: HYDROcodone/APAP 5-325MG 1 EACH TAB PO PRN ×3 (07:07→22:42)
[2018-08-19 07:22] LABS: Basophils % (A) 0 %; Eosinophils % (A) 0 %; HCT 40.4 % (34.0-46.0); HGB 13.1 gm/dL (11.4-16.0); Lymphocytes # (A) 0.3 k/uL (1.0-4.8); Lymphocytes % (A) 3 %; MCH 30.3 pg (25.0-35.0); MCHC 32.3 g/dL (31.0-37.0); MCV 93.8 fL (80.0-100.0); Mean Platelet Volume 6.2; Monocytes # (A) 0.6 k/uL (0-1.0); Monocytes % (A) 6 %; Neutrophils # (A) 9.9 k/uL (1.3-7.7); Neutrophils % (A) 91 %; Platelet Count 227 k/uL (150-450); RBC 4.31 m/uL (3.80-5.40); WBC 10.9 k/uL (3.8-10.6)
[2018-08-19 07:39] LABS: Anion Gap 5 mmol/L; Blood Urea Nitrogen 26 mg/dL (7-17); Calcium 9.9 mg/dL (8.4-10.2); Carbon Dioxide 34 mmol/L (22-30); Chloride 97 mmol/L (98-107); Glucose 147 mg/dL (74-99); Magnesium 1.5 mg/dL (1.6-2.3); Potassium 3.9 mmol/L (3.5-5.1); Sodium 136 mmol/L (137-145)
[2018-08-19] MEDS: APIXABAN 5 MG TAB PO SCH ×2 (08:10→20:39)
[2018-08-19] MEDS: CHOLECALCIFEROL 1,000 UNIT TAB PO SCH (08:10)
[2018-08-19] MEDS: SENNOSIDES 8.6 MG TAB PO SCH (08:10)
[2018-08-19] MEDS: POTASSIUM CHLORIDE ER 20 MEQ TAB.ER PO SCH (08:10)
[2018-08-19] MEDS: MULTIVITAMINS, THERA 1 EACH TAB PO SCH (08:10)
[2018-08-19] MEDS: CYANOCOBALAMIN 500 MCG TAB PO SCH (08:10)
[2018-08-19] MEDS: METOPROLOL TARTRATE 25 MG TAB PO SCH ×2 (08:10→20:39)
[2018-08-19] MEDS: GABAPENTIN 100 MG CAP PO SCH ×3 (08:10→20:39)
[2018-08-19] MEDS: METOLAZONE 2.5 MG TAB PO SCH (08:11)
[2018-08-19] MEDS: SPIRONOLACTONE-HCTZ 25-25MG 1 EACH TAB PO SCH (08:11)
[2018-08-19] MEDS: BUDESONIDE 1 MG/2 ML NEBU INHALATION SCH ×2 (08:13→19:43)
[2018-08-19] MEDS: FORMOTEROL FUMARATE 20 MCG/2 ML NEBU INHALATION SCH ×2 (08:13→19:43)
[2018-08-19] MEDS: FUROSEMIDE 20 MG TAB PO SCH (10:38)
[2018-08-19] MEDS: SPIRONOLACTONE 25 MG TAB PO SCH (10:38)
[2018-08-19] MEDS: METOCLOPRAMIDE 10 MG TAB PO PRN ×2 (11:34→20:24)
[2018-08-19 11:58] LABS: Glucose,Whole Blood 147 mg/dL (75-99)
--- NOTE | 2018-08-19 13:51 | P.PN ---
Subjective Progress Note Date: 08/19/18 Principal diagnosis: Acute exacerbation chronic obstructive pulmonary disease, complicated by bibasilar pneumonia, healthcare acquired pneumonia. The patient is seen today 08/19/2018 in follow-up on the regular medical floor. She is currently awake and alert in no acute distress. She is breathing a bit better today compared to yesterday but not back to her baseline. Her chest x-ray showed some basilar infiltrates on top of her COPD. He is maintaining good O2 saturations in the 90s on 4 L/m per nasal cannula. She's been tachypneic. Slightly tachycardic. Afebrile. Blood and sputum cultures pending. White count 10.9. Hemoglobin 13.1. Creatinine 0.48. She is currently on DuoNeb inhalations, Pulmicort and Perforomist inhalations, IV Solu- Medrol, diuretics in the form of Zosyn. She is anticoagulated with Eliquis. Objective - Vital Signs Vital signs: Vital Signs Temp 97.9 F 08/19/18 08:00 Pulse 98 08/19/18 11:49 Resp 24 08/19/18 08:48 BP 145/77 08/19/18 08:00 Pulse Ox 94 L 08/19/18 08:13 Intake & Output 08/18/18 08/19/18 08/19/18 18:59 06:59 18:59 Intake Total 240 120 720 Output Total 100 150 300 Balance 140 -30 420 Weight 55.3 kg Intake: Intake, IV Titration 120 Amount Diltiazem 50 mg In Sodium 0 Chloride 0.9% 40 ml @ 5 MG/HR 5 mls/hr IV .Q10H [facility] Rx#:[id number] Piperacillin-Tazobactam 3 100 .375 gm In Sodium Chloride 0.9% 100 ml @ 25 mls/hr IVPB Q8H [facility] Rx#: [id number] Sodium Chloride 0.9% 1, 20 000 ml @ 50 mls/hr IV . Q20H [facility] Rx#:[id number] Oral 240 720 Output: Urine 100 150 300 Other: Voiding Method Bedside Commode Bedside Commode # Voids 1 - Exam GENERAL EXAM: Alert, fairly comfortable in mild respiratory apparent distress. On nasal O2 at 4 L/m per nasal cannula. HEAD: Normocephalic. EYES: Normal reaction of pupils, equal size. NOSE: Clear with pink turbinates. THROAT: No erythema or exudates. NECK: No masses, no JVD. CHEST: No chest wall deformity. LUNGS: Equal air entry with lateral end expiratory wheeze, diminished CVS: S1 and S2 normal with no audible murmur, regular rhythm. ABDOMEN: No hepatosplenomegaly, normal bowel sounds, no guarding or rigidity. SPINE: Vital scoliosis SKIN: No rashes CENTRAL NERVOUS SYSTEM: No focal deficits, tone is normal in all 4 extremities. EXTREMITIES: There is no peripheral edema. No clubbing, no cyanosis. Peripheral pulses are intact. - Labs CBC & Chem 7: 08/19/18 06:31 08/19/18 06:31 Labs: Abnormal Lab Results - Last 24 Hours (Table) 08/18/18 08/18/18 08/19/18 Range/Units 17:04 21:33 05:48 WBC (3.8-10.6) k/uL Neutrophils # (1.3-7.7) k/uL Lymphocytes # (1.0-4.8) k/uL Sodium (137-145) mmol/L Chloride (98-107) mmol/L Carbon Dioxide (22-30) mmol/L BUN (7-17) mg/dL Creatinine (0.52-1.04) mg/dL Glucose (74-99) mg/dL POC Glucose (mg/dL) 151 H 144 H 163 H (75-99) mg/dL Magnesium (1.6-2.3) mg/dL 08/19/18 08/19/18 08/19/18 Range/Units 06:31 06:31 11:20 WBC 10.9 H (3.8-10.6) k/uL Neutrophils # 9.9 H (1.3-7.7) k/uL Lymphocytes # 0.3 L (1.0-4.8) k/uL Sodium 136 L (137-145) mmol/L Chloride 97 L (98-107) mmol/L Carbon Dioxide 34 H (22-30) mmol/L BUN 26 H (7-17) mg/dL Creatinine 0.48 L (0.52-1.04) mg/dL Glucose 147 H (74-99) mg/dL POC Glucose (mg/dL) 147 H (75-99) mg/dL Magnesium 1.5 L (1.6-2.3) mg/dL Microbiology - Last 24 Hours (Table) 08/18/18 00:53 Blood Culture - Preliminary Blood No Growth after 24 hours 08/18/18 07:55 Gram Stain - Preliminary Sputum Assessment and Plan Assessment: Impression: #1 Acute on chronic hypoxic respiratory failure secondary to an acute exacerbation of severe oxygen dependent chronic obstructive pulmonary disease, complicated by bibasilar healthcare acquired pneumonia. #2 Hypertension, history of. #3 Hyperlipidemia. #4 Osteoarthritis. #5 Rheumatoid arthritis. #6 Former smoker of greater than 40 years at 1 pack per day. Quit in July 2014. #7 Anxiety. #8 History of paroxysmal atrial fibrillation, anticoagulated with Eliquis. #9 senior living resident. Plan: The patient was seen and evaluated by Dr. Pickard. She is improved today as compared to yesterday. Still not quite back to her baseline. We'll continue with her current treatment plan including DuoNeb inhalations, Perforomist and Pulmicort inhalations, IV Solu-Medrol. Antibiotics in the form of Zosyn. Anticoagulated with Eliquis. We'll continue to follow and make further recommendations based on her clinical status. I, the cosigning physician, performed a history & physical examination of the patient. Lungs sounds bilateral end expiratory wheeze, crackles in the posterior bases. Maintaining good O2 saturations in the 90s on 4 L/m per nasal cannula. I discussed the assessment and plan of care with my nurse practitioner , Chula Varma. I attest to the above note as dictated by her.
[2018-08-19 17:29] LABS: Glucose,Whole Blood 116 mg/dL (75-99)
[2018-08-19] MEDS: ACETAMINOPHEN TAB 325 MG TAB PO PRN (20:23)
[2018-08-19] MEDS: PRAVASTATIN SODIUM 40 MG TAB PO SCH (20:39)
[2018-08-19 20:41] LABS: Glucose,Whole Blood 172 mg/dL (75-99)
--- NOTE | 2018-08-19 23:47 | PN ---
PROGRESS NOTE CHIEF COMPLAINT: Re-evaluation. HISTORY OF PRESENT ILLNESS: This 68-year-old was admitted to the hospital with complaints of progressive shortness of breath. The patient has advanced COPD. She also has underlying history of rheumatoid arthritis. There were some basal infiltrates. Possibility of infection not ruled out. The patient is on antibiotic. She is on steroids. She is actually feeling better. REVIEW OF SYSTEMS: NEURO: Denies any headaches, dizziness. PSYCH: Chronic anxiety. CARDIAC: Denies chest pain, angina, palpitations. RESPIRATORY: Chronic shortness of breath with exacerbation. GI: Nausea. No vomiting, no abdominal pain, no diarrhea. : No symptoms of dysuria or hematuria. EXTREMITIES: No pain, edema. CONSTITUTIONAL: No fever, chills. PHYSICAL EXAMINATION: Pleasant female, at present in mild respiratory distress. She is using her accessory muscles for breathing. She has some expiratory wheezing. Vital signs revealed temperature 97.9, pulse 109, respirations 24, blood pressure 145/77, pulse ox of 94% on 4 L. HEENT: Normocephalic. NECK: Decreased range of motion. No JVD. CHEST EXAMINATION: Increased percussion. Note bilateral use of accessory muscles. Patient has generalized decreased air flow bilaterally. Bilateral expiratory wheezing. CARDIAC: Distant heart sounds S1, S2 with no gallop. Systolic murmur 2/6, left sternal border. ABDOMEN: Soft. No palpable masses. Bowel sounds normal. No organomegaly. No abdominal bruits. Extremities reveal no edema. Neurologically awake, alert, oriented with well-coordinated movements. LABORATORY ASSESSMENT: White count 10.9; otherwise CBC unremarkable. CO2 content 34, BUN 26, creatinine 0.48. Magnesium 1.5. ASSESSMENT: 1. Acute exacerbation of chronic obstructive pulmonary disease. 2. Tracheobronchitis. Possibility of pneumonia not ruled out. 3. History of pulmonary hypertension. 4. History of paroxysmal atrial fibrillation. 5. Chronic debility. PLAN: The patient is at present being managed with antibiotics, updrafts and oxygen. The patient is also on Zosyn. The patient is followed by Pulmonary. Continue present regimen. Prognosis remains guarded. MMODL / IJN: [id number] /
[2018-08-20] MEDS: PIPERACILLIN-TAZOBACTAM 3.375 GM in SODIUM CHLORIDE 0.9% 100 ML IVPB SCH ×3 (04:19→21:15)
[2018-08-20] MEDS: IPRATROPIUM-ALBUTEROL 3 ML NEB INHALATION SCH ×5 (05:21→19:09)
[2018-08-20] MEDS: INSULIN ASPART 100 UNIT/ML 1 ML 10 ML VIAL SQ SCH ×4 (06:07→21:16)
[2018-08-20 06:09] LABS: Glucose,Whole Blood 122 mg/dL (75-99)
[2018-08-20] MEDS: methylPREDNISolone SOD SUCCI 125 MG/2 ML VIAL IV SCH ×3 (06:10→17:39)
[2018-08-20] MEDS: LORazepam 1 MG TAB PO PRN ×3 (06:11→23:14)
[2018-08-20] MEDS: HYDROcodone/APAP 5-325MG 1 EACH TAB PO PRN ×4 (06:11→23:13)
[2018-08-20] MEDS: BUDESONIDE 1 MG/2 ML NEBU INHALATION SCH ×2 (07:59→19:09)
[2018-08-20] MEDS: FORMOTEROL FUMARATE 20 MCG/2 ML NEBU INHALATION SCH ×2 (07:59→19:09)
[2018-08-20] MEDS: GABAPENTIN 100 MG CAP PO SCH ×3 (09:24→21:16)
[2018-08-20] MEDS: MULTIVITAMINS, THERA 1 EACH TAB PO SCH (09:24)
[2018-08-20] MEDS: CYANOCOBALAMIN 500 MCG TAB PO SCH (09:24)
[2018-08-20] MEDS: CHOLECALCIFEROL 1,000 UNIT TAB PO SCH (09:24)
[2018-08-20] MEDS: APIXABAN 5 MG TAB PO SCH ×2 (09:24→21:16)
[2018-08-20] MEDS: FUROSEMIDE 20 MG TAB PO SCH (09:24)
[2018-08-20] MEDS: POTASSIUM CHLORIDE ER 20 MEQ TAB.ER PO SCH (09:24)
[2018-08-20] MEDS: SPIRONOLACTONE 25 MG TAB PO SCH (09:24)
[2018-08-20] MEDS: SENNOSIDES 8.6 MG TAB PO SCH (09:24)
[2018-08-20] MEDS: METOPROLOL TARTRATE 50 MG TAB PO SCH ×2 (09:25→21:16)
[2018-08-20] MEDS: MAGNESIUM SULFATE-D5W PMX 1 GM in DEXTROSE/WATER 1 100ML.BAG IVPB SCH ×2 (09:28→12:32)
[2018-08-20] MEDS: SPIRONOLACTONE-HCTZ 25-25MG 1 EACH TAB PO SCH (09:32)
[2018-08-20 11:24] LABS: Glucose,Whole Blood 207 mg/dL (75-99)
--- NOTE | 2018-08-20 13:35 | XR ---
EXAMINATION TYPE: XR chest 1V portable DATE OF EXAM: 08/20/2018 CLINICAL HISTORY: Pneumonia abnormal x-ray progress study. TECHNIQUE: Single AP portable frontal view of the chest is obtained. COMPARISON: Chest x-ray from August 18, 2018 and older studies. FINDINGS: There is persistent patchy bibasilar opacities. No new focal airspace opacity, pleural eff usion, or pneumothorax is seen bilaterally. Cardiac blood size is stable and enlarged without reflect thoracic aorta. Osseous structures are demineralized. IMPRESSION: Cardiomegaly with patchy bibasilar acute atelectasis and/or infiltrate remains present, s uspect tiny bilateral pleural effusions. No significant change from most recent x-ray.
--- NOTE | 2018-08-20 14:37 | P.PN ---
Subjective Progress Note Date: 08/20/18 Principal diagnosis: Acute exacerbation chronic obstructive pulmonary disease, complicated by bibasilar pneumonia, healthcare acquired pneumonia. The patient is seen today 08/19/2018 in follow-up on the regular medical floor. She is currently awake and alert in no acute distress. She is breathing a bit better today compared to yesterday but not back to her baseline. Her chest x-ray showed some basilar infiltrates on top of her COPD. He is maintaining good O2 saturations in the 90s on 4 L/m per nasal cannula. She's been tachypneic. Slightly tachycardic. Afebrile. Blood and sputum cultures pending. White count 10.9. Hemoglobin 13.1. Creatinine 0.48. She is currently on DuoNeb inhalations, Pulmicort and Perforomist inhalations, IV Solu- Medrol, diuretics in the form of Zosyn. She is anticoagulated with Eliquis. The patient is seen again today for her first 2019 in follow-up on the regular medical floor. She is awake and alert in no acute distress. She has been slow to progress. Somewhat better today as compared to yesterday but still with dyspnea on minimal exertion. He is maintaining good O2 saturations in the 90s on 4 L/m per nasal cannula. Chest x-ray continues to show evidence of cardiomegaly with patchy bibasilar atelectasis versus infiltrates. Tiny bilateral pleural effusions. No significant change. She's been afebrile. Hemodynamically stable. Blood culture reveals no growth. Sputum culture reveals no growth. Objective - Vital Signs Vital signs: Vital Signs Temp 98.4 F 08/20/18 12:00 Pulse 77 08/20/18 12:00 Resp 22 08/20/18 12:00 BP 160/87 08/20/18 12:00 Pulse Ox 97 08/20/18 12:00 Intake & Output 08/19/18 08/20/18 08/20/18 18:59 06:59 18:59 Intake Total 1080 Output Total 854 810 1259 Balance 580 -100 -1200 Weight 55.8 kg Intake: Oral 1080 Output: Urine 590 338 8842 Other: Voiding Method Bedside Commode Bedside Commode Bedside Commode # Voids 3 2 - Exam GENERAL EXAM: Alert, fairly comfortable in mild respiratory apparent distress. On nasal O2 at 4 L/m per nasal cannula. HEAD: Normocephalic. EYES: Normal reaction of pupils, equal size. NOSE: Clear with pink turbinates. THROAT: No erythema or exudates. NECK: No masses, no JVD. CHEST: No chest wall deformity. LUNGS: Equal air entry with bilateral end expiratory wheeze, diminished CVS: S1 and S2 normal with no audible murmur, regular rhythm. ABDOMEN: No hepatosplenomegaly, normal bowel sounds, no guarding or rigidity. SPINE: Vital scoliosis SKIN: No rashes CENTRAL NERVOUS SYSTEM: No focal deficits, tone is normal in all 4 extremities. EXTREMITIES: There is no peripheral edema. No clubbing, no cyanosis. Peripheral pulses are intact. - Labs CBC & Chem 7: 08/19/18 06:31 08/19/18 06:31 Labs: Abnormal Lab Results - Last 24 Hours (Table) 08/19/18 08/19/18 08/20/18 Range/Units 16:18 20:30 06:07 POC Glucose (mg/dL) 116 H 172 H 122 H (75-99) mg/dL 08/20/18 Range/Units 11:22 POC Glucose (mg/dL) 207 H (75-99) mg/dL Microbiology - Last 24 Hours (Table) 08/18/18 07:55 Gram Stain - Final Sputum Sputum Culture - Final 08/18/18 00:53 Blood Culture - Preliminary Blood No Growth after 48 hours Assessment and Plan Assessment: Impression: #1 Acute on chronic hypoxic respiratory failure secondary to an acute exacerbation of severe oxygen dependent chronic obstructive pulmonary disease, complicated by bibasilar healthcare acquired pneumonia. #2 Hypertension, history of. #3 Hyperlipidemia. #4 Osteoarthritis. #5 Rheumatoid arthritis. #6 Former smoker of greater than 40 years at 1 pack per day. Quit in July 2014. #7 Anxiety. #8 History of paroxysmal atrial fibrillation, anticoagulated with Eliquis. #9 care home resident. Plan: The patient was seen and evaluated by Dr. Pickard. She is improved today as compared to yesterday. Still not quite back to her baseline. No significant improvement on the x-ray yet. We'll continue with her current treatment plan including DuoNeb inhalations, Perforomist and Pulmicort inhalations, IV Solu- Medrol. Antibiotics in the form of Zosyn. Anticoagulated with Eliquis. We'll continue to follow and make further recommendations based on her clinical status. I, the cosigning physician, performed a history & physical examination of the patient. Lungs sounds bilateral end expiratory wheeze, crackles in the posterior bases. Maintaining good O2 saturations in the 90s on 4 L/m per nasal cannula. I discussed the assessment and plan of care with my nurse practitioner , Chula Varma. I attest to the above note as dictated by her.
[2018-08-20 16:25] LABS: Glucose,Whole Blood 93 mg/dL (75-99)
[2018-08-20] MEDS: SODIUM CHLORIDE 0.9% 1,000 ML IV SCH (16:59)
[2018-08-20 21:08] LABS: Glucose,Whole Blood 187 mg/dL (75-99)
[2018-08-20] MEDS: PRAVASTATIN SODIUM 40 MG TAB PO SCH (21:16)
[2018-08-20] MEDS: METOCLOPRAMIDE 10 MG TAB PO PRN (21:16)
[2018-08-20] MEDS: ACETAMINOPHEN TAB 325 MG TAB PO PRN (21:21)
--- NOTE | 2018-08-20 21:54 | PN ---
PROGRESS NOTE CHIEF COMPLAINT: Re-evaluation. HISTORY OF PRESENT ILLNESS: This is a 68-year-old who was admitted to the hospital with acute exacerbation of COPD and some infiltrates at the bases; possibility of pneumonia versus scarring. The patient is doing better today. She has fairly advanced COPD. She still feels strongly that she be on a ventilator if need be. Will have the learning support assistant further evaluate the patient and assess and advise accordingly. REVIEW OF SYSTEMS: NEURO: Denies any headaches, dizziness. PSYCH: No anxiety. Some apprehension. CARDIAC: Denies chest pain, angina, palpitations. RESPIRATORY: Shortness of breath. Cough. No hemoptysis. GI: No nausea, vomiting, abdominal pain, diarrhea. : No symptoms of dysuria or hematuria. EXTREMITIES: Denies pain. CONSTITUTIONAL: No fever, chills. HEMATOLOGICAL: No anemia or bleeding disorder. ENDOCRINE: History of steroid-induced hyperglycemia. PHYSICAL EXAMINATION: Pleasant female who appears in mild respiratory distress. Temperature 98.1, pulse 75, respirations 20, blood pressure 150/89, pulse ox 96% on 4 L. HEENT: Normocephalic. NECK: No JVD. CHEST EXAMINATION: Increased AP diameter. The patient has increased percussion noted bilaterally. Generalized decreased air flow. CARDIAC: Scattered rhonchi. ABDOMEN: Soft. No palpable masses. Bowel sounds normal. No organomegaly. No abdominal bruits. Extremities reveal no edema. NEUROLOGIC: Awake, alert, oriented with well-coordinated movements. Skin reveals multiple ecchymotic areas. LABORATORY ASSESSMENT: Blood sugars mildly elevated at times. Blood sugar before lunch was 207. ASSESSMENT: 1. Acute on chronic respiratory failure. 2. Acute exacerbation of chronic obstructive pulmonary disease. 3. Possible pneumonitis. 4. Rheumatoid arthritis. 5. Steroid-induced hyperglycemia. PLAN: The patient is stable. Continue present medical regimen. Patient's condition was discussed with the patient. Prognosis is guarded. Pulmonary is following the patient. MMODL / IJN: [id number] /
[2018-08-21] MEDS: IPRATROPIUM-ALBUTEROL 3 ML NEB INHALATION SCH ×6 (00:08→19:10)
[2018-08-21] MEDS: methylPREDNISolone SOD SUCCI 125 MG/2 ML VIAL IV SCH ×5 (01:52→23:11)
[2018-08-21] MEDS: PIPERACILLIN-TAZOBACTAM 3.375 GM in SODIUM CHLORIDE 0.9% 100 ML IVPB SCH ×3 (04:07→19:56)
[2018-08-21] MEDS: LORazepam 1 MG TAB PO PRN ×3 (06:11→23:10)
[2018-08-21] MEDS: HYDROcodone/APAP 5-325MG 1 EACH TAB PO PRN ×4 (06:11→23:10)
[2018-08-21] MEDS: INSULIN ASPART 100 UNIT/ML 1 ML 10 ML VIAL SQ SCH ×4 (06:41→22:23)
[2018-08-21 06:44] LABS: Glucose,Whole Blood 113 mg/dL (75-99)
[2018-08-21] MEDS: FORMOTEROL FUMARATE 20 MCG/2 ML NEBU INHALATION SCH ×2 (07:42→19:11)
[2018-08-21] MEDS: BUDESONIDE 1 MG/2 ML NEBU INHALATION SCH ×2 (07:42→19:11)
[2018-08-21] MEDS: APIXABAN 5 MG TAB PO SCH ×2 (08:28→19:58)
[2018-08-21] MEDS: METOPROLOL TARTRATE 50 MG TAB PO SCH ×2 (08:28→19:58)
[2018-08-21] MEDS: MULTIVITAMINS, THERA 1 EACH TAB PO SCH (08:29)
[2018-08-21] MEDS: FUROSEMIDE 20 MG TAB PO SCH (08:29)
[2018-08-21] MEDS: POTASSIUM CHLORIDE ER 20 MEQ TAB.ER PO SCH (08:29)
[2018-08-21] MEDS: SPIRONOLACTONE 25 MG TAB PO SCH (08:29)
[2018-08-21] MEDS: GABAPENTIN 100 MG CAP PO SCH ×3 (08:29→19:58)
[2018-08-21] MEDS: SENNOSIDES 8.6 MG TAB PO SCH (08:29)
[2018-08-21] MEDS: CYANOCOBALAMIN 500 MCG TAB PO SCH (08:29)
[2018-08-21] MEDS: CHOLECALCIFEROL 1,000 UNIT TAB PO SCH (08:29)
[2018-08-21] MEDS: SPIRONOLACTONE-HCTZ 25-25MG 1 EACH TAB PO SCH (08:30)
[2018-08-21] MEDS: METOLAZONE 2.5 MG TAB PO SCH (08:30)
[2018-08-21] MEDS: ACETAMINOPHEN TAB 325 MG TAB PO PRN ×2 (08:37→19:58)
[2018-08-21] MEDS: METOCLOPRAMIDE 10 MG TAB PO PRN ×2 (08:37→23:10)
[2018-08-21 11:57] LABS: Glucose,Whole Blood 139 mg/dL (75-99)
--- NOTE | 2018-08-21 13:13 | P.PN ---
Subjective Progress Note Date: 08/21/18 Principal diagnosis: Acute exacerbation COPD This 68-year-old female who presented to the emergency room because of shortness of breath. She is a resident at a nursing facility. She has significantly advanced COPD. The patient had possibility of pulmonary infiltrates at the bases possible pneumonic process. Patient has no fever or chills. She is on antibiotic at present along with steroids. Her breathing is improving. She is also followed by pulmonary. I did have a discussion with Dr. Pickard yesterday from pulmonary services to discuss with patient regarding the severity of her illness. This was because the patient has wished to be on a ventilator inability the patient's condition good make her total hip ventilator dependent. He did have a conversation with the patient today in the patient is really thinking about her CODE STATUS. Patient also has underlying history of rheumatoid arthritis on medical therapy. Potentiates the risk of infections. Also her environment at the nursing facility makes her at risk of far more serious gram-negative pneumonias. Patient anyhow is feeling some better today though emotionally is down. She is coughing some like producing excessive sputum. Denies any chest pain. Continues on bedrest and oxygenation as minimal activity apex is short of breath. Patient encouraged to be in the chair. REVIEW OF SYSTEMS: Neuro: Denies any headaches dizziness. Psych: Some anxiety and apprehension Cardiac: Denies chest pain and angina palpitations. Respiratory: Continues shortness of breath and cough. GI: Improved nausea and no vomiting no abdominal pain no diarrhea did have a bowel movement yesterday : Denies dysuria hematuria. Extremities: Denies pain. No edema. Skin: Significant traumatic ecchymosis. Constitutional: No fever, chills. Objective - Vital Signs Vital signs: Vital Signs Temp 97.7 F 08/21/18 11:33 Pulse 72 08/21/18 11:33 Resp 20 08/21/18 11:33 BP 162/94 08/21/18 11:33 Pulse Ox 99 08/21/18 11:33 Intake & Output 08/20/18 08/21/18 08/21/18 18:59 06:59 18:59 Intake Total 180 Output Total 1200 350 Balance -1200 -170 Weight 55.5 kg Intake: Oral 180 Output: Urine 1200 350 Other: Voiding Method Bedside Commode Bedside Commode # Voids 1 200 # Bowel Movements 1 PHYSICAL EXAMINATION: Cooperative, at present in no acute distress. HEENT: Neck supple. No JVD. Chest: Increased percussion note bilaterally and symmetrical generalized decreased airflow with expiratory wheezing in the bases and scattered rhonchi which do clear with cough Cardiac: Normal S1-S2 no gallops to start murmur 2/6 left sternal border. Abdomen: Soft bowel sounds present. Extremities: No edema no tenderness Neurologically: Awake, alert, oriented with well-coordinated movements. - Labs CBC & Chem 7: 08/19/18 06:31 08/19/18 06:31 Labs: Abnormal Lab Results - Last 24 Hours (Table) 08/20/18 08/21/18 08/21/18 Range/Units 21:05 06:35 11:39 POC Glucose (mg/dL) 187 H 113 H 139 H (75-99) mg/dL Microbiology - Last 24 Hours (Table) 08/18/18 00:53 Blood Culture - Preliminary Blood No Growth after 72 hours 08/18/18 07:55 Gram Stain - Final Sputum Sputum Culture - Final Assessment and Plan Assessment: ASSESSMENT: 1. Acute respiratory failure. 2. Probable bilateral basilar pneumonia. 3. COPD. 4. History of rheumatoid arthritis. 5. 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 6. Chronic anxiety. 7. Debility. 8. Traumatic ecchymosis multiple sites. PLAN: Continue present medical regimen with antibiotics and steroids oxygen. Continue on her progress. Patient status discussed in details again with the patient. Patient does understand the seriousness of her ailments. She is taking into consideration regarding CODE STATUS. Patient's been assured that she is not being rushed into.
--- NOTE | 2018-08-21 13:24 | P.PN ---
Subjective Progress Note Date: 08/21/18 Principal diagnosis: Acute exacerbation chronic obstructive pulmonary disease, complicated by bibasilar pneumonia, healthcare acquired pneumonia. The patient is seen today 08/19/2018 in follow-up on the regular medical floor. She is currently awake and alert in no acute distress. She is breathing a bit better today compared to yesterday but not back to her baseline. Her chest x-ray showed some basilar infiltrates on top of her COPD. He is maintaining good O2 saturations in the 90s on 4 L/m per nasal cannula. She's been tachypneic. Slightly tachycardic. Afebrile. Blood and sputum cultures pending. White count 10.9. Hemoglobin 13.1. Creatinine 0.48. She is currently on DuoNeb inhalations, Pulmicort and Perforomist inhalations, IV Solu- Medrol, diuretics in the form of Zosyn. She is anticoagulated with Eliquis. The patient is seen again today August 20 2018 in follow-up on the regular medical floor. She is awake and alert in no acute distress. She has been slow to progress. Somewhat better today as compared to yesterday but still with dyspnea on minimal exertion. He is maintaining good O2 saturations in the 90s on 4 L/m per nasal cannula. Chest x-ray continues to show evidence of cardiomegaly with patchy bibasilar atelectasis versus infiltrates. Tiny bilateral pleural effusions. No significant change. She's been afebrile. Hemodynamically stable. Blood culture reveals no growth. Sputum culture reveals no growth. The patient is seen again today 08/21/2017 in follow-up on the regular medical floor. She is currently sitting up in bed. Awake and alert in no acute distress. She is breathing a bit easier today as compared to yesterday. Still not quite back to her baseline. Maintaining O2 saturations in the upper 90s on 4 L/m per nasal cannula. Blood and sputum cultures reveal no growth. Maintained on DuoNeb inhalations, Pulmicort and Perforomist inhalations, IV Solu -Medrol. Anticoagulated with Eliquis. Antibiotics in the form of Zosyn. Objective - Vital Signs Vital signs: Vital Signs Temp 97.7 F 08/21/18 11:33 Pulse 72 08/21/18 11:33 Resp 20 08/21/18 11:33 BP 162/94 08/21/18 11:33 Pulse Ox 99 08/21/18 11:33 Intake & Output 08/20/18 08/21/18 08/21/18 18:59 06:59 18:59 Intake Total 180 Output Total 1200 350 Balance -1200 -170 Weight 55.5 kg Intake: Oral 180 Output: Urine 1200 350 Other: Voiding Method Bedside Commode Bedside Commode # Voids 1 200 # Bowel Movements 1 - Exam GENERAL EXAM: Frail, alert, fairly comfortable in mild respiratory apparent distress. On nasal O2 at 4 L/m per nasal cannula. HEAD: Normocephalic. EYES: Normal reaction of pupils, equal size. NOSE: Clear with pink turbinates. THROAT: No erythema or exudates. NECK: No masses, no JVD. CHEST: No chest wall deformity. LUNGS: Equal air entry with bilateral end expiratory wheeze, diminished CVS: S1 and S2 normal with no audible murmur, regular rhythm. ABDOMEN: No hepatosplenomegaly, normal bowel sounds, no guarding or rigidity. SPINE: Vital scoliosis SKIN: No rashes CENTRAL NERVOUS SYSTEM: No focal deficits, tone is normal in all 4 extremities. EXTREMITIES: There is no peripheral edema. No clubbing, no cyanosis. Peripheral pulses are intact. - Labs CBC & Chem 7: 08/19/18 06:31 08/19/18 06:31 Labs: Abnormal Lab Results - Last 24 Hours (Table) 08/20/18 08/21/18 08/21/18 Range/Units 21:05 06:35 11:39 POC Glucose (mg/dL) 187 H 113 H 139 H (75-99) mg/dL Microbiology - Last 24 Hours (Table) 08/18/18 00:53 Blood Culture - Preliminary Blood No Growth after 72 hours 08/18/18 07:55 Gram Stain - Final Sputum Sputum Culture - Final Assessment and Plan Assessment: Impression: #1 Acute on chronic hypoxic respiratory failure secondary to an acute exacerbation of severe oxygen dependent chronic obstructive pulmonary disease, complicated by bibasilar healthcare acquired pneumonia. #2 Hypertension, history of. #3 Hyperlipidemia. #4 Osteoarthritis. #5 Rheumatoid arthritis. #6 Former smoker of greater than 40 years at 1 pack per day. Quit in July 2014. #7 Anxiety. #8 History of paroxysmal atrial fibrillation, anticoagulated with Eliquis. #9 long-term resident. Plan: The patient was seen and evaluated by Dr. Pickard. We'll continue with her current treatment plan including DuoNeb inhalations, Perforomist and Pulmicort inhalations, IV Solu-Medrol. Antibiotics in the form of Zosyn. Anticoagulated with Eliquis. We'll continue to follow and make further recommendations based on her clinical status. I, the cosigning physician, performed a history & physical examination of the patient. Lungs sounds bilateral end expiratory wheeze, crackles in the posterior bases. Maintaining good O2 saturations in the 90s on 4 L/m per nasal cannula. I discussed the assessment and plan of care with my nurse practitioner , Chula Varma. I attest to the above note as dictated by her.
[2018-08-21 17:21] LABS: Glucose,Whole Blood 179 mg/dL (75-99)
[2018-08-21] MEDS: SODIUM CHLORIDE 0.9% 1,000 ML IV SCH ×2 (18:05→19:57)
[2018-08-21] MEDS: PRAVASTATIN SODIUM 40 MG TAB PO SCH (19:58)
[2018-08-21 20:18] LABS: Glucose,Whole Blood 257 mg/dL (75-99)
[2018-08-22] MEDS: IPRATROPIUM-ALBUTEROL 3 ML NEB INHALATION SCH ×7 (00:01→23:22)
[2018-08-22] MEDS: PIPERACILLIN-TAZOBACTAM 3.375 GM in SODIUM CHLORIDE 0.9% 100 ML IVPB SCH ×3 (03:07→20:54)
[2018-08-22 05:55] LABS: Glucose,Whole Blood 104 mg/dL (75-99)
[2018-08-22] MEDS: LORazepam 1 MG TAB PO PRN ×3 (06:19→23:17)
[2018-08-22] MEDS: HYDROcodone/APAP 5-325MG 1 EACH TAB PO PRN ×4 (06:19→23:17)
[2018-08-22] MEDS: INSULIN ASPART 100 UNIT/ML 1 ML 10 ML VIAL SQ SCH ×4 (06:22→22:24)
[2018-08-22] MEDS: methylPREDNISolone SOD SUCCI 125 MG/2 ML VIAL IV SCH ×4 (06:22→23:17)
[2018-08-22] MEDS: FORMOTEROL FUMARATE 20 MCG/2 ML NEBU INHALATION SCH ×2 (07:50→19:38)
[2018-08-22] MEDS: BUDESONIDE 1 MG/2 ML NEBU INHALATION SCH ×2 (07:50→19:38)
[2018-08-22] MEDS: SPIRONOLACTONE 25 MG TAB PO SCH (08:46)
[2018-08-22] MEDS: FUROSEMIDE 20 MG TAB PO SCH (08:46)
[2018-08-22] MEDS: MULTIVITAMINS, THERA 1 EACH TAB PO SCH (08:46)
[2018-08-22] MEDS: GABAPENTIN 100 MG CAP PO SCH ×3 (08:46→20:54)
[2018-08-22] MEDS: SPIRONOLACTONE-HCTZ 25-25MG 1 EACH TAB PO SCH (08:47)
[2018-08-22] MEDS: POTASSIUM CHLORIDE ER 20 MEQ TAB.ER PO SCH (08:47)
[2018-08-22] MEDS: SENNOSIDES 8.6 MG TAB PO SCH (08:47)
[2018-08-22] MEDS: CYANOCOBALAMIN 500 MCG TAB PO SCH (08:47)
[2018-08-22] MEDS: CHOLECALCIFEROL 1,000 UNIT TAB PO SCH (08:47)
[2018-08-22] MEDS: APIXABAN 5 MG TAB PO SCH ×2 (08:47→20:54)
[2018-08-22] MEDS: ACETAMINOPHEN TAB 325 MG TAB PO PRN (08:51)
[2018-08-22] MEDS: METOPROLOL TARTRATE 50 MG TAB PO SCH ×2 (08:57→20:54)
[2018-08-22] MEDS ORDERED: DILTIAZEM DRIP BOLUS FROM BAG 1 MG SOLN IV ONE (09:07)
[2018-08-22] MEDS: DILTIAZEM 50 MG in SODIUM CHLORIDE 0.9% 40 ML IV SCH ×2 (09:35→18:10)
--- NOTE | 2018-08-22 11:57 | P.PN ---
Subjective Progress Note Date: 08/22/18 Principal diagnosis: Acute exacerbation of chronic obstructive pulmonary disease, comfortable But bibasilar pneumonia, healthcare acquired pneumonia The patient is seen today 08/19/2018 in follow-up on the regular medical floor. She is currently awake and alert in no acute distress. She is breathing a bit better today compared to yesterday but not back to her baseline. Her chest x-ray showed some basilar infiltrates on top of her COPD. He is maintaining good O2 saturations in the 90s on 4 L/m per nasal cannula. She's been tachypneic. Slightly tachycardic. Afebrile. Blood and sputum cultures pending. White count 10.9. Hemoglobin 13.1. Creatinine 0.48. She is currently on DuoNeb inhalations, Pulmicort and Perforomist inhalations, IV Solu- Medrol, diuretics in the form of Zosyn. She is anticoagulated with Eliquis. The patient is seen again today August 20 2018 in follow-up on the regular medical floor. She is awake and alert in no acute distress. She has been slow to progress. Somewhat better today as compared to yesterday but still with dyspnea on minimal exertion. He is maintaining good O2 saturations in the 90s on 4 L/m per nasal cannula. Chest x-ray continues to show evidence of cardiomegaly with patchy bibasilar atelectasis versus infiltrates. Tiny bilateral pleural effusions. No significant change. She's been afebrile. Hemodynamically stable. Blood culture reveals no growth. Sputum culture reveals no growth. The patient is seen again today 08/21/2017 in follow-up on the regular medical floor. She is currently sitting up in bed. Awake and alert in no acute distress. She is breathing a bit easier today as compared to yesterday. Still not quite back to her baseline. Maintaining O2 saturations in the upper 90s on 4 L/m per nasal cannula. Blood and sputum cultures reveal no growth. Maintained on DuoNeb inhalations, Pulmicort and Perforomist inhalations, IV Solu -Medrol. Anticoagulated with Eliquis. Antibiotics in the form of Zosyn. On 08/22/2018 patient seen in follow-up. Patient is awake and alert, in no acute distress, sounds are positive for diffuse wheezes, she states her breathing slightly improved, she is in A. fib, and the rate is still tachycardic , currently is at 128 to 1:30 BPM, patient was placed on Cardizem drip at 5 mg per hour. SHe is on oral anticoagulation. She is on 4 L per nasal cannula her pulse ox is 99%, she is afebrile, blood and sputum culture showed no growth. No new labs a chest x-rays today. No fever or chills, patient is on antibiotics form of Zosyn. Still quite dyspneic even at rest, but no acute distress. She is on oral diuretics, 20 mg daily Lasix, and IV steroids and nebulized bronchodilators. Objective - Vital Signs Vital signs: Vital Signs Temp 98.1 F 08/22/18 11:41 Pulse 80 08/22/18 11:43 Resp 20 08/22/18 11:41 BP 117/77 08/22/18 11:41 Pulse Ox 99 08/22/18 11:41 Intake & Output 08/21/18 08/22/18 08/22/18 18:59 06:59 18:59 Intake Total 500 191 Output Total 350 200 450 Balance 150 -200 -259 Weight 56.7 kg Intake: Intake, IV Titration 140 11 Amount Diltiazem 50 mg In Sodium 11 Chloride 0.9% 40 ml @ 10 MG/HR 10 mls/hr IV .Q5H [facility] Rx#:[id number] Piperacillin-Tazobactam 3 100 .375 gm In Sodium Chloride 0.9% 100 ml @ 25 mls/hr IVPB Q8H [facility] Rx#: [id number] Sodium Chloride 0.9% 1, 40 000 ml @ 50 mls/hr IV . Q20H [facility] Rx#:[id number] Oral 360 180 Output: Urine 350 200 450 Other: Voiding Method Bedside Commode # Voids 200 - Exam GENERAL EXAM: Alert, pleasant, 68-year-old white female, currently on 4 L per nasal cannula moderately dyspneic with conversation comfortable in no apparent distress. HEAD: Normocephalic/atraumatic. EYES: Normal reaction of pupils, equal size. Conjunctiva pink, sclera white. NOSE: Clear with pink turbinates. THROAT: No erythema or exudates. NECK: No masses, no JVD, no thyroid enlargement, no adenopathy. CHEST: No chest wall deformity. Symmetrical expansion. LUNGS: Equal air entry with diffuse wheezes CVS: Regular rate and rhythm, normal S1 and S2, no gallops, no murmurs, no rubs ABDOMEN: Soft, nontender. No hepatosplenomegaly, normal bowel sounds, no guarding or rigidity. EXTREMITIES: No clubbing, no edema, no cyanosis, 2+ pulses and upper and lower extremities. MUSCULOSKELETAL: Muscle strength and tone normal. SPINE: No scoliosis or deformity SKIN: No rashes CENTRAL NERVOUS SYSTEM: Alert and oriented -3. No focal deficits, tone is normal in all 4 extremities. PSYCHIATRIC: Alert and oriented -3. Appropriate affect. Intact judgment and insight. - Labs CBC & Chem 7: 08/19/18 06:31 08/19/18 06:31 Labs: Abnormal Lab Results - Last 24 Hours (Table) 08/21/18 08/21/18 08/21/18 Range/Units 11:39 16:37 20:16 POC Glucose (mg/dL) 139 H 179 H 257 H (75-99) mg/dL 08/22/18 Range/Units 05:54 POC Glucose (mg/dL) 104 H (75-99) mg/dL Microbiology - Last 24 Hours (Table) 08/18/18 00:53 Blood Culture - Preliminary Blood No Growth after 96 hours Assessment and Plan Plan: Assessment: #1 Acute on chronic hypoxic respiratory failure secondary to an acute exacerbation of severe oxygen dependent chronic obstructive pulmonary disease, complicated by bibasilar healthcare acquired pneumonia. #2 A. fib with RVR #3 Hypertension, history of. #4 Hyperlipidemia. #5 Osteoarthritis. #6 Rheumatoid arthritis. #7 Former smoker of greater than 40 years at 1 pack per day. Quit in July 2014. #8 Anxiety. #9 History of paroxysmal atrial fibrillation, anticoagulated with Eliquis. #10 long-term resident. Plan: Continue current antibiotic coverage, cultures remain negative to date, no fever or chills, patient is quite bronchospastic and dyspneic, continue same dose of IV steroids, nebulized bronchodilators. I performed a history & physical examination of the patient and discussed their management with my nurse practitioner, Eva Cooper. I reviewed the nurse practitioner's note and agree with the documented findings and plan of care. Lung sounds are positive for diffuse wheezes. The findings and the impression was discussed with the patient. I attest to the documentation by the nurse practitioner. Time with Patient: Less than 30
[2018-08-22 12:41] LABS: Glucose,Whole Blood 113 mg/dL (75-99)
--- NOTE | 2018-08-22 12:58 | P.PN ---
Subjective Progress Note Date: 08/22/18 Principal diagnosis: Acute exacerbation COPD 68-year-old female admitted to the hospital with exacerbation of COPD and acute on chronic respiratory failure. Patient was doing fairly well through this morning she went into atrial fibrillation rapid ventricular rate. She has had a history of paroxysmal atrial flutter. Patient's been on Eliquis for anticoagulation and on a beta zeus to help control cardiac rate. The patient is on multiple medications for her respiratory status. The patient respiratory status is about the same as yesterday. She continues to be short of breath with any activity. She is a steroids and has Zosyn for possible pneumonia. Patient has some cough no hemoptysis. Denied any symptoms of angina. She does tell me that she has made a decision of not to be placed on a ventilator if status arises REVIEW OF SYSTEMS: Neuro: Denies any headaches dizziness. Psych: Some anxiety. Cardiac: Denied any chest pain or angina. Doesn't palpitations Respiratory: Continued shortness of breath and cough. No worse. GI: Denies nausea vomiting or abdominal pain. No diarrhea or constipation, no bowel movement yet. : Denies dysuria hematuria. Extremities: Denies pain. No edema. Skin: Multiple ecchymosis. Constitutional: No fever, chills. Objective - Vital Signs Vital signs: Vital Signs Temp 98.1 F 08/22/18 11:41 Pulse 80 08/22/18 11:43 Resp 20 08/22/18 11:41 BP 117/77 08/22/18 11:41 Pulse Ox 99 08/22/18 11:41 Intake & Output 08/21/18 08/22/18 08/22/18 18:59 06:59 18:59 Intake Total 500 191 Output Total 350 200 450 Balance 150 -200 -259 Weight 56.7 kg Intake: Intake, IV Titration 140 11 Amount Diltiazem 50 mg In Sodium 11 Chloride 0.9% 40 ml @ 10 MG/HR 10 mls/hr IV .Q5H [facility] Rx#:[id number] Piperacillin-Tazobactam 3 100 .375 gm In Sodium Chloride 0.9% 100 ml @ 25 mls/hr IVPB Q8H [facility] Rx#: [id number] Sodium Chloride 0.9% 1, 40 000 ml @ 50 mls/hr IV . Q20H [facility] Rx#:[id number] Oral 360 180 Output: Urine 350 200 450 Other: Voiding Method Bedside Commode # Voids 200 PHYSICAL EXAMINATION: Cooperative, at present in no acute distress. HEENT: Neck supple. No JVD. Chest: Generalized decreased airflow occasional wheeze Cardiac: Normal S1-S2 irregularly irregular with no gallops, systolic murmur 2/ 6 left sternal borde . Abdomen: Soft bowel sounds present. Extremities: No edema no tenderness Neurologically: Awake, alert, oriented with well-coordinated movements. - Labs CBC & Chem 7: 08/19/18 06:31 08/19/18 06:31 Labs: Abnormal Lab Results - Last 24 Hours (Table) 08/21/18 08/21/18 08/22/18 Range/Units 16:37 20:16 05:54 POC Glucose (mg/dL) 179 H 257 H 104 H (75-99) mg/dL 08/22/18 Range/Units 12:28 POC Glucose (mg/dL) 113 H (75-99) mg/dL Microbiology - Last 24 Hours (Table) 08/18/18 00:53 Blood Culture - Preliminary Blood No Growth after 96 hours Assessment and Plan Assessment: ASSESSMENT: 1. Acute respiratory failure. 2. Probable bilateral basilar pneumonia. 3. COPD. 4. History of rheumatoid arthritis. 5. 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 6. Chronic anxiety. 7. Debility. 8. Traumatic ecchymosis multiple sites. 9. Atrial fibrillation rapid ventricular rate PLAN: Patient is being started on Cardizem drip to control the rate. May require further medications including amiodarone if she does not slowed down. We will have cardiology see the patient. Patient be continued on anticoagulation prognosis remains guarded we'll increase the beta zeus for now patient's niece at the bedside and per patient discussed her status with her. They have decided no ventilator but otherwise continued aggressive care
--- NOTE | 2018-08-22 13:24 | XR ---
EXAMINATION TYPE: XR chest 1V DATE OF EXAM: 08/22/2018 HISTORY: Shortness of breath. COMPARISON: August 20, 2018 TECHNIQUE: Single view of the chest is submitted. FINDINGS: Demonstrated are scattered senescent parenchymal change. Patchy basilar density right greater than left. Nodular density right upper lobe. Continued follow-up is advised. The heart is stable. Hilar and mediastinal structures are within normal limits. Degenerative changes are seen of the dorsal spine. IMPRESSION: 1. Patchy basilar density right greater than left. Nodular density right upper lobe. Continued follo w-up is advised.
[2018-08-22 16:59] LABS: Glucose,Whole Blood 169 mg/dL (75-99)
[2018-08-22] MEDS: PRAVASTATIN SODIUM 40 MG TAB PO SCH (20:54)
[2018-08-22 21:00] LABS: Glucose,Whole Blood 246 mg/dL (75-99)
[2018-08-22] MEDS: METOCLOPRAMIDE 10 MG TAB PO PRN (23:17)
[2018-08-23] MEDS: DILTIAZEM 50 MG in SODIUM CHLORIDE 0.9% 40 ML IV SCH ×2 (01:39→05:21)
[2018-08-23] MEDS: PIPERACILLIN-TAZOBACTAM 3.375 GM in SODIUM CHLORIDE 0.9% 100 ML IVPB SCH ×3 (03:28→20:20)
[2018-08-23] MEDS: IPRATROPIUM-ALBUTEROL 3 ML NEB INHALATION SCH ×6 (03:42→23:34)
[2018-08-23] MEDS: SODIUM CHLORIDE 0.9% 1,000 ML IV SCH (04:17)
[2018-08-23] MEDS: methylPREDNISolone SOD SUCCI 125 MG/2 ML VIAL IV SCH (05:21)
[2018-08-23 05:59] LABS: Glucose,Whole Blood 103 mg/dL (75-99)
[2018-08-23] MEDS: HYDROcodone/APAP 5-325MG 1 EACH TAB PO PRN ×4 (06:04→23:19)
[2018-08-23] MEDS: LORazepam 1 MG TAB PO PRN ×3 (06:04→23:19)
[2018-08-23] MEDS: INSULIN ASPART 100 UNIT/ML 1 ML 10 ML VIAL SQ SCH ×4 (06:17→21:16)
[2018-08-23] MEDS: BUDESONIDE 1 MG/2 ML NEBU INHALATION SCH ×2 (07:38→19:28)
[2018-08-23] MEDS: FORMOTEROL FUMARATE 20 MCG/2 ML NEBU INHALATION SCH ×2 (07:38→19:41)
[2018-08-23 09:07] LABS: Blood Urea Nitrogen 31 mg/dL (7-17); Calcium 9.6 mg/dL (8.4-10.2); Chloride 89 mmol/L (98-107); Glucose 221 mg/dL (74-99); Sodium 135 mmol/L (137-145)
[2018-08-23 09:13] LABS: Anion Gap 5 mmol/L
[2018-08-23] MEDS: CHOLECALCIFEROL 1,000 UNIT TAB PO SCH (09:18)
[2018-08-23] MEDS: ACETAMINOPHEN TAB 325 MG TAB PO PRN (09:19)
[2018-08-23 09:20] LABS: Carbon Dioxide 41 mmol/L (22-30)
[2018-08-23] MEDS: SPIRONOLACTONE 25 MG TAB PO SCH (09:20)
[2018-08-23] MEDS: APIXABAN 5 MG TAB PO SCH ×2 (09:20→20:21)
[2018-08-23] MEDS: METOPROLOL TARTRATE 50 MG TAB PO SCH ×2 (09:20→20:21)
[2018-08-23] MEDS: DILTIAZEM ORAL 60 MG TAB PO SCH ×3 (09:21→21:15)
[2018-08-23] MEDS: GABAPENTIN 100 MG CAP PO SCH ×3 (09:21→21:15)
[2018-08-23] MEDS: POTASSIUM CHLORIDE ER 20 MEQ TAB.ER PO SCH (09:21)
[2018-08-23] MEDS: SENNOSIDES 8.6 MG TAB PO SCH (10:17)
[2018-08-23] MEDS: METOLAZONE 2.5 MG TAB PO SCH (10:17)
[2018-08-23] MEDS: FUROSEMIDE 20 MG TAB PO SCH (10:17)
[2018-08-23] MEDS: MULTIVITAMINS, THERA 1 EACH TAB PO SCH (10:17)
[2018-08-23] MEDS: CYANOCOBALAMIN 500 MCG TAB PO SCH (10:19)
[2018-08-23] MEDS: predniSONE 20 MG TAB PO SCH (10:19)
[2018-08-23 11:31] LABS: Glucose,Whole Blood 174 mg/dL (75-99)
[2018-08-23] MEDS: guaiFENesin-DM 600/30MG 1 EACH TAB.ER.12H PO SCH ×2 (13:53→20:21)
--- NOTE | 2018-08-23 14:51 | XR ---
EXAMINATION TYPE: XR chest 2V DATE OF EXAM: 08/23/2018 COMPARISON: Chest CT earlier today. Chest x-ray from yesterday. HISTORY: Shortness of breath TECHNIQUE: Frontal and lateral views of the chest are obtained. FINDINGS: There is chronic parenchymal change without suspicious new focal airspace opacity, pleural effusion, or pneumothorax seen bilaterally. The cardiac silhouette size is enlarged with atheroscle rotic and ectatic thoracic aorta. The osseous structures are demineralized. High riding humeral hea d suggests chronic rotator cuff tears bilaterally. IMPRESSION: Cardiomegaly and chronic parenchymal changes without suspicious acute infiltrate on curr ent x-ray.
--- NOTE | 2018-08-23 15:22 | CT ---
EXAMINATION TYPE: CT chest wo con DATE OF EXAM: 08/23/2018 COMPARISON: 10/03/2013 CT chest and chest x-ray dated 04/28/2018 HISTORY: Shortness of breath CT DLP: 281.8 mGycm. Automated Exposure Control for Dose Reduction was Utilized. TECHNIQUE: CT scan of the thorax is performed without IV contrast. FINDINGS: LUNGS: Moderate to severe emphysematous changes throughout the lungs. There is tapering of the pulmon nils vasculature peripherally from underlying COPD. Patchy groundglass opacities are noted at the lung bases, likely related to atelectasis although mild multifocal pneumonitis is a possibility. There is a linear pleural parenchymal scarring seen medially within the left upper lobe anteriorly near the a nterior junction line. MEDIASTINUM: Lack of IV contrast is noted to limit evaluation for mediastinal and especially hilar ad enopathy. There are no definitive greater than 1 cm hilar or mediastinal lymph nodes. Mild cardiomega ly is present. Severe three-vessel coronary artery calcifications are present. Trace pericardial flui d is noted. OTHER: There are multiple compression deformities within the midthoracic and lower thoracic spine wit h accentuated thoracic kyphosis. These are new from the prior 2013 but present on the chest report da chema 04/28/2018. 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 Extensive atherosclerosis is seen of th e abdominal aorta and moderate atherosclerosis is present of the descending thoracic aorta. Severe at herosclerosis is also noted of the aortic arch. There is heterogeneity of the thyroid gland with enlargement of the left thyroid lobe. There is parti al visualization of postsurgical change of the lumbar spine. IMPRESSION: 1. Few bibasilar patchy groundglass opacities are favored to represent atelectasis with underlying mo derate to severe pulmonary emphysema. Alternatively developing infectious or inflammatory pneumonitis is possible in the appropriate clinical setting. 2. Multiple thoracic compression deformity seen on the prior of 04/28/2018. 3. Severe three-vessel coronary artery calcifications, marker of coronary artery disease and severe c alcific atheromatous plaquing of the abdominal aorta and aortic arch.
[2018-08-23 16:32] LABS: Glucose,Whole Blood 139 mg/dL (75-99)
--- NOTE | 2018-08-23 17:09 | P.PN ---
Subjective Progress Note Date: 08/23/18 68-year-old female patient with advanced end-stage COPD with chronic hypoxic respiratory failure. The patient presented to the hospital because of worsening shortness of breath is been a hospital for the past 1 week. During the course of the treatment, the patient was receiving DuoNeb nebulized treatment [id number], a combination of Perforomist and Pulmicort neb last from a twice a day, IV Solu Medrol that was switched to prednisone orally at a dose of 40 mg by mouth daily. The patient's anticoagulative with Eliquis. The patient is also on Zosyn. Note that the patient was having episodes of atrial fibrillation with rapid ventricular response pressure with activity. The patient was placed on Cardizem drip at 5 mg an hour and subsequently she was transitioned to oral Cardizem. She also received diuretics 20 mg IV Lasix, that was later on switched to oral Lasix. Overall condition is still poor. She is struggling with her breathing. She has a congested cough. I reviewed the most recent chest x-ray and was showing some consolidation of the right lower lobe area. Based on that I ordered a CAT scan of the chest that showed moderate to severe emphysematous changes throughout the lung galeas. There are patient had patchy groundglass opacities in the lung bases likely related to atelectasis. There was a linear parenchymal scar in the left upper lobe near the anterior junction line. Mediastinum was also clean. There was evidence of multiple compression fractures involving the mid thoracic in the lower thoracic spine with evidence of thoracic kyphosis. These were new compared to the previous CAT scan from 2013. 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 There is also abdominal aortic and moderate atherosclerotic changes involving the descending thoracic aorta. Objective - Vital Signs Vital signs: Vital Signs Temp 98 F 08/23/18 15:37 Pulse 87 08/23/18 15:54 Resp 20 08/23/18 15:37 BP 131/96 08/23/18 15:37 Pulse Ox 97 08/23/18 15:37 Intake & Output 08/22/18 08/23/18 08/23/18 18:59 06:59 18:59 Intake Total 465 277 960 Output Total 450 600 Balance 15 277 360 Weight 56.2 kg Intake: IV 55 40 Diltiazem 50 mg In Sodium 55 40 Chloride 0.9% 40 ml @ 10 MG/HR 10 mls/hr IV .Q5H [facility] Rx#:[id number] Intake, IV Titration 230 237 Amount Diltiazem 50 mg In Sodium 50 87 Chloride 0.9% 40 ml @ 10 MG/HR 10 mls/hr IV .Q5H [facility] Rx#:[id number] Piperacillin-Tazobactam 3 100 100 .375 gm In Sodium Chloride 0.9% 100 ml @ 25 mls/hr IVPB Q8H [facility] Rx#: [id number] Sodium Chloride 0.9% 1, 80 50 000 ml @ 50 mls/hr IV . Q20H [facility] Rx#:[id number] Oral 180 960 Output: Urine 450 600 Other: Voiding Method Bedside Commode Bedside Commode # Voids 2 0 # Bowel Movements 1 - Exam GENERAL EXAM: Alert, pleasant, 68-year-old white female, currently on 4 L per nasal cannula moderately dyspneic with conversation comfortable in no apparent distress. HEAD: Normocephalic/atraumatic. EYES: Normal reaction of pupils, equal size. Conjunctiva pink, sclera white. NOSE: Clear with pink turbinates. THROAT: No erythema or exudates. NECK: No masses, no JVD, no thyroid enlargement, no adenopathy. CHEST: No chest wall deformity. Symmetrical expansion. LUNGS: Equal air entry with diffuse wheezes CVS: Regular rate and rhythm, normal S1 and S2, no gallops, no murmurs, no rubs ABDOMEN: Soft, nontender. No hepatosplenomegaly, normal bowel sounds, no guarding or rigidity. EXTREMITIES: No clubbing, no edema, no cyanosis, 2+ pulses and upper and lower extremities. MUSCULOSKELETAL: Muscle strength and tone normal. SPINE: No scoliosis or deformity SKIN: No rashes CENTRAL NERVOUS SYSTEM: Alert and oriented -3. No focal deficits, tone is normal in all 4 extremities. PSYCHIATRIC: Alert and oriented -3. Appropriate affect. Intact judgment and insight. - Labs CBC & Chem 7: 08/19/18 06:31 08/23/18 08:23 Labs: Abnormal Lab Results - Last 24 Hours (Table) 08/22/18 08/23/18 08/23/18 Range/Units 20:55 05:57 08:23 Sodium 135 L (137-145) mmol/L Chloride 89 L (98-107) mmol/L Carbon Dioxide 41 H* (22-30) mmol/L BUN 31 H (7-17) mg/dL Glucose 221 H (74-99) mg/dL POC Glucose (mg/dL) 246 H 103 H (75-99) mg/dL 08/23/18 08/23/18 Range/Units 11:29 16:30 Sodium (137-145) mmol/L Chloride (98-107) mmol/L Carbon Dioxide (22-30) mmol/L BUN (7-17) mg/dL Glucose (74-99) mg/dL POC Glucose (mg/dL) 174 H 139 H (75-99) mg/dL Microbiology - Last 24 Hours (Table) 08/18/18 00:53 Blood Culture - Preliminary Blood No Growth after 120 hours Assessment and Plan Plan: #1 Acute on chronic hypoxic respiratory failure secondary to an acute exacerbation of severe oxygen dependent chronic obstructive pulmonary disease, and due to concern of an underlying pneumonia a CAT scan of the chest was done that showed no evidence of any consolidation or airspace disease. Minimal atelectatic changes in lung bases are again seen however these are none infectious in nature. Patient remains on IV Zosyn. There could have been a pneumonia at time of admission which probably has recovered by now. Nevertheless, the patient started having a congested cough. She is unable to bring up much sputum. #2 A. fib with RVR, rate is under better control although the patient is having tachycardia with limited amount of activity #3 Hypertension, history of. #4 Hyperlipidemia. #5 Osteoarthritis. #6 Rheumatoid arthritis. #7 Former smoker of greater than 40 years at 1 pack per day. Quit in July 2014. #8 Anxiety. #9 extensive compression deformities of the midthoracic in the lower thoracic spine with accentuated thoracic kyphosis. #10 prison resident. Plan Prognosis poor. There is limited recovery over the past 1 week. Admission and it the on 4 times a day [id number]. Continued IV Zosyn. Continue the bronchodilators 50 continue oral steroids. Nothing much can be added specially the CAT scan of the chest is negative for any acute pneumonia. I think the pulmonary infections been adequately treated with Zosyn. Performance and functional status is poor. Limited functional capacity at this point in time.
[2018-08-23] MEDS: PRAVASTATIN SODIUM 40 MG TAB PO SCH (20:21)
[2018-08-23 20:33] LABS: Glucose,Whole Blood 327 mg/dL (75-99)
[2018-08-23] MEDS: METOCLOPRAMIDE 10 MG TAB PO PRN (23:19)
--- NOTE | 2018-08-24 00:09 | PN ---
PROGRESS NOTE ATTENDING PHYSICIAN: Dr. Ladarius Santamaria. CHIEF COMPLAINT: Re-evaluation. HISTORY OF PRESENT ILLNESS: This is a 68-year-old female who was admitted to the hospital with increased shortness of breath and acute exacerbation of COPD. The patient was felt to have possible pneumonia and was treated with Zosyn. The patient was evaluated by Dr. De La Vega today, she normally sees Dr. De La Vega as an outpatient. Dr. Pickard saw the patient last week. Dr. De La Vega did order a CT scan of the chest and his opinion is that the patient does not have any acute pneumonic process, however, it might have been partly resolve by now since she had antibiotics. The patient, however, has a significantly advanced disease and the prognosis remains poor. Recommending to continue the medications at present, which is already maximized medications. REVIEW OF SYSTEMS: NEURO: Denies any headaches or dizziness. PSYCH: Chronic anxiety. CARDIAC: Denies chest pain, angina, palpitations. The patient's atrial fibrillation is controlled. RESPIRATORY: Continued shortness of breath and cough. No hemoptysis. GI: No nausea, vomiting, abdominal pain, diarrhea. : No symptoms of dysuria, hematuria. EXTREMITIES: No pain or edema. CONSTITUTIONAL: No fevers or chills. PHYSICAL EXAMINATION: A 68-year-old, who appears older than stated age and chronically ill. Vital signs reveal temperature 97.8, pulse 113, respirations 20, blood pressure 113/95, pulse ox 92 percent. HEENT: Normocephalic. NECK: No JVD. CHEST: Clear to auscultation with generalized decreased air flow. Occasional rhonchi. She is post respiratory treatment. She is still using accessory muscles. CARDIAC: Distant heart sounds S1, S2 with no gallops. Irregular rhythm. Systolic murmur 2/6 left sternal border. ABDOMEN: Soft. No palpable masses. Bowel sounds normal. No organomegaly. No abdominal bruits. EXTREMITIES: No edema. NEUROLOGIC: Awake, alert, oriented with well-coordinated movements. LABORATORY ASSESSMENT: Electrolytes which reveal a CO2 content of 41, sodium 135. BUN 31, creatinine 0.53. ASSESSMENT: 1. Acute exacerbation of chronic obstructive pulmonary disease. 2. Chronic obstructive pulmonary disease. 3. Acute on chronic respiratory failure. 4. Possibility of pneumonia, improving. 5. Atrial fibrillation, rapid ventricular rate, improved. PLAN: Continue present medical regimen. Patient's condition discussed with the patient. Prognosis guarded. We will review with the patient the impression of Dr. De La Vega. Again would recommend for the patient comfort care. She has agreed to NO CODE, however, she might be very hesitant to accept comfort care. GENI / JOY: [id number] /
[2018-08-24] MEDS: IPRATROPIUM-ALBUTEROL 3 ML NEB INHALATION SCH ×6 (03:10→23:36)
[2018-08-24] MEDS: PIPERACILLIN-TAZOBACTAM 3.375 GM in SODIUM CHLORIDE 0.9% 100 ML IVPB SCH ×3 (04:04→19:40)
[2018-08-24 05:29] LABS: Glucose,Whole Blood 98 mg/dL (75-99)
[2018-08-24] MEDS: HYDROcodone/APAP 5-325MG 1 EACH TAB PO PRN ×4 (05:35→23:10)
[2018-08-24] MEDS: INSULIN ASPART 100 UNIT/ML 1 ML 10 ML VIAL SQ SCH ×4 (06:33→20:39)
[2018-08-24] MEDS: FORMOTEROL FUMARATE 20 MCG/2 ML NEBU INHALATION SCH ×2 (08:07→19:58)
[2018-08-24] MEDS: BUDESONIDE 1 MG/2 ML NEBU INHALATION SCH ×2 (08:07→19:57)
[2018-08-24] MEDS: LORazepam 1 MG TAB PO PRN ×3 (08:29→23:10)
[2018-08-24] MEDS: DILTIAZEM ORAL 60 MG TAB PO SCH ×3 (08:30→20:39)
[2018-08-24] MEDS: predniSONE 20 MG TAB PO SCH (08:30)
[2018-08-24] MEDS: guaiFENesin-DM 600/30MG 1 EACH TAB.ER.12H PO SCH (08:30)
[2018-08-24] MEDS: GABAPENTIN 100 MG CAP PO SCH ×3 (08:31→20:39)
[2018-08-24] MEDS: APIXABAN 5 MG TAB PO SCH ×2 (08:31→19:40)
[2018-08-24] MEDS: METOPROLOL TARTRATE 50 MG TAB PO SCH ×2 (08:31→19:41)
[2018-08-24] MEDS: FUROSEMIDE 20 MG TAB PO SCH (08:31)
[2018-08-24] MEDS: SENNOSIDES 8.6 MG TAB PO SCH (08:32)
[2018-08-24] MEDS: MULTIVITAMINS, THERA 1 EACH TAB PO SCH (08:33)
[2018-08-24] MEDS: POTASSIUM CHLORIDE ER 20 MEQ TAB.ER PO SCH (08:33)
[2018-08-24] MEDS: CYANOCOBALAMIN 500 MCG TAB PO SCH (08:33)
[2018-08-24] MEDS: CHOLECALCIFEROL 1,000 UNIT TAB PO SCH (08:33)
[2018-08-24] MEDS: SPIRONOLACTONE 25 MG TAB PO SCH (08:34)
[2018-08-24 12:35] LABS: Glucose,Whole Blood 116 mg/dL (75-99)
[2018-08-24] MEDS: THEOPHYLLINE 24 HOUR 400 MG CAP.ER.24H PO SCH (12:57)
[2018-08-24] MEDS: guaiFENesin-DM 100-10MG/5ML 10 ML CUP PO SCH ×3 (12:57→20:40)
--- NOTE | 2018-08-24 13:43 | XR ---
EXAMINATION TYPE: XR chest 1V DATE OF EXAM: 08/24/2018 COMPARISON: 08/23/2018 INDICATION: Short of breath TECHNIQUE: Single frontal view of the chest is obtained. FINDINGS: The heart size is normal. The pulmonary vasculature is normal. The lungs are clear. IMPRESSION: 1. No acute pulmonary process.
[2018-08-24 14:03] VITALS: BMI 24.0
--- NOTE | 2018-08-24 14:39 | P.PN ---
Subjective Progress Note Date: 08/24/18 Principal diagnosis: Acute exacerbation of chronic obstructive pulmonary disease, comfortable But bibasilar pneumonia, healthcare acquired pneumonia The patient is seen today 08/19/2018 in follow-up on the regular medical floor. She is currently awake and alert in no acute distress. She is breathing a bit better today compared to yesterday but not back to her baseline. Her chest x-ray showed some basilar infiltrates on top of her COPD. He is maintaining good O2 saturations in the 90s on 4 L/m per nasal cannula. She's been tachypneic. Slightly tachycardic. Afebrile. Blood and sputum cultures pending. White count 10.9. Hemoglobin 13.1. Creatinine 0.48. She is currently on DuoNeb inhalations, Pulmicort and Perforomist inhalations, IV Solu- Medrol, diuretics in the form of Zosyn. She is anticoagulated with Eliquis. The patient is seen again today August 20 2018 in follow-up on the regular medical floor. She is awake and alert in no acute distress. She has been slow to progress. Somewhat better today as compared to yesterday but still with dyspnea on minimal exertion. He is maintaining good O2 saturations in the 90s on 4 L/m per nasal cannula. Chest x-ray continues to show evidence of cardiomegaly with patchy bibasilar atelectasis versus infiltrates. Tiny bilateral pleural effusions. No significant change. She's been afebrile. Hemodynamically stable. Blood culture reveals no growth. Sputum culture reveals no growth. The patient is seen again today 08/21/2017 in follow-up on the regular medical floor. She is currently sitting up in bed. Awake and alert in no acute distress. She is breathing a bit easier today as compared to yesterday. Still not quite back to her baseline. Maintaining O2 saturations in the upper 90s on 4 L/m per nasal cannula. Blood and sputum cultures reveal no growth. Maintained on DuoNeb inhalations, Pulmicort and Perforomist inhalations, IV Solu -Medrol. Anticoagulated with Eliquis. Antibiotics in the form of Zosyn. On 08/22/2018 patient seen in follow-up. Patient is awake and alert, in no acute distress, sounds are positive for diffuse wheezes, she states her breathing slightly improved, she is in A. fib, and the rate is still tachycardic , currently is at 128 to 1:30 BPM, patient was placed on Cardizem drip at 5 mg per hour. SHe is on oral anticoagulation. She is on 4 L per nasal cannula her pulse ox is 99%, she is afebrile, blood and sputum culture showed no growth. No new labs a chest x-rays today. No fever or chills, patient is on antibiotics form of Zosyn. Still quite dyspneic even at rest, but no acute distress. She is on oral diuretics, 20 mg daily Lasix, and IV steroids and nebulized bronchodilators. On 08/24/2018 patient seen in follow-up on selective care unit. She is quite wheezy, congested, dyspneic at rest and with any exertion. He is on 4 L per nasal cannula her pulse ox is 98%, she is afebrile. Patient is on nebulized bronchodilators, Pulmicort and Perforomist, DuoNeb, she is on oral prednisone, IV Zosyn. Blood and sputum culture showed no growth. Patient has a weak nonproductive congested cough. Patient has labored respirations, he has a fan blowing on her face. We have discussed CODE STATUS with the patient today, patient is not a candidate for bronchoscopy in view of her very poor lung function, and very marginal functional status. She did agree that she should not be intubated and placed on life-support. Objective - Vital Signs Vital signs: Vital Signs Temp 97.0 F L 08/24/18 11:27 Pulse 88 08/24/18 12:16 Resp 20 08/24/18 11:27 BP 157/96 08/24/18 11:27 Pulse Ox 98 08/24/18 11:27 Intake & Output 08/23/18 08/24/18 08/24/18 18:59 06:59 18:59 Intake Total 1320 400 Output Total 800 Balance 520 400 Weight 55.8 kg 55.8 kg Intake: Intake, IV Titration 100 Amount Piperacillin-Tazobactam 3 100 .375 gm In Sodium Chloride 0.9% 100 ml @ 25 mls/hr IVPB Q8H [facility] Rx#: [id number] Oral 1320 300 Output: Urine 800 Other: Voiding Method Bedpan Bedside Commode # Voids 0 1 1 # Bowel Movements 1 1 - Exam GENERAL EXAM: Alert, pleasant, 68-year-old white female, currently on 4 L per nasal cannula moderately dyspneic with conversation comfortable in no apparent distress. HEAD: Normocephalic/atraumatic. EYES: Normal reaction of pupils, equal size. Conjunctiva pink, sclera white. NOSE: Clear with pink turbinates. THROAT: No erythema or exudates. NECK: No masses, no JVD, no thyroid enlargement, no adenopathy. CHEST: No chest wall deformity. Symmetrical expansion. LUNGS: Equal air entry with diffuse wheezes CVS: Regular rate and rhythm, normal S1 and S2, no gallops, no murmurs, no rubs ABDOMEN: Soft, nontender. No hepatosplenomegaly, normal bowel sounds, no guarding or rigidity. EXTREMITIES: No clubbing, no edema, no cyanosis, 2+ pulses and upper and lower extremities. MUSCULOSKELETAL: Muscle strength and tone normal. SPINE: No scoliosis or deformity SKIN: No rashes CENTRAL NERVOUS SYSTEM: Alert and oriented -3. No focal deficits, tone is normal in all 4 extremities. PSYCHIATRIC: Alert and oriented -3. Appropriate affect. Intact judgment and insight. - Labs CBC & Chem 7: 08/19/18 06:31 08/23/18 08:23 Labs: Abnormal Lab Results - Last 24 Hours (Table) 08/23/18 08/23/18 08/24/18 Range/Units 16:30 20:31 11:36 POC Glucose (mg/dL) 139 H 327 H 116 H (75-99) mg/dL Microbiology - Last 24 Hours (Table) 08/18/18 00:53 Blood Culture - Final Blood No Growth after 144 hours Assessment and Plan Plan: Assessment: #1 Acute on chronic hypoxic respiratory failure secondary to an acute exacerbation of severe oxygen dependent chronic obstructive pulmonary disease, complicated by bibasilar healthcare acquired pneumonia. #2 A. fib with RVR #3 Hypertension, history of. #4 Hyperlipidemia. #5 Osteoarthritis. #6 Rheumatoid arthritis. #7 Former smoker of greater than 40 years at 1 pack per day. Quit in July 2014. #8 Anxiety. #9 History of paroxysmal atrial fibrillation, anticoagulated with Eliquis. #10 long term resident. Plan: Continue current medical treatment, continue Zosyn, steroids, nebulized bronchodilators. She is doing poorly, long-term prognosis is quite poor, still very dyspneic, wheezy and congested. CODE STATUS was discussed with the patient , patient does not want to be intubated and placed on life-support. She would not be a candidate for bronchoscopy in view of her very poor lung function. I performed a history & physical examination of the patient and discussed their management with my nurse practitioner, Eva Cooper. I reviewed the nurse practitioner's note and agree with the documented findings and plan of care. Lung sounds are positive for diffuse wheezes. The findings and the impression was discussed with the patient. I attest to the documentation by the nurse practitioner. Time with Patient: Less than 30
[2018-08-24 16:49] LABS: Glucose,Whole Blood 148 mg/dL (75-99)
[2018-08-24] MEDS: PRAVASTATIN SODIUM 40 MG TAB PO SCH (19:41)
[2018-08-24 20:34] LABS: Glucose,Whole Blood 148 mg/dL (75-99)
[2018-08-24] MEDS: ACETAMINOPHEN TAB 325 MG TAB PO PRN (20:39)
[2018-08-24] MEDS: METOCLOPRAMIDE 10 MG TAB PO PRN (23:10)
[2018-08-24 23:27] VITALS: TEMP 98.2
--- NOTE | 2018-08-25 00:34 | PN ---
PROGRESS NOTE ATTENDING PHYSICIAN: Dr. Ladarius Santamaria. CHIEF COMPLAINT: Re-evaluation. HISTORY OF PRESENT ILLNESS: This 68-year-old female was admitted to the hospital with extreme shortness of breath. The patient has a history of underlying chronic obstructive lung disease. She has a fairly advanced lung disease. She is doing poorly. There was a CT scan done yesterday, which does not show any acute pneumonias. It is possible she might have a recent pneumonia. She is still on antibiotics. She is on steroids. The patient is on updrafts. She does have intermittent runs of SVT, rate of 180 today actually. She otherwise denies any chest pain, she is extremely weak. She is pretty much confined to bed. It was discussed with the patient regarding hospice care. She is still very adamant about continuing aggressive care, but does agree to not being placed on a ventilator or life support. The patient was contacted again this evening to see if she had any further questions regarding what I discussed in the morning. She still says she wanted to take a couple more days before she makes a decision. PAST MEDICAL HISTORY: Significant for the advanced COPD, rheumatoid arthritis. REVIEW OF SYSTEMS: NEURO: Denies any headaches or dizziness. PSYCH: Some anxiety. CARDIAC: Denies chest pain, angina, palpitations. RESPIRATORY: Shortness of breath, cough. No hemoptysis. GI: No nausea, vomiting, abdominal pain, diarrhea. : No symptoms of dysuria, hematuria. EXTREMITIES: Denies pain. CONSTITUTIONAL: No fevers or chills. PHYSICAL EXAMINATION: Pleasant female, severe cushingoid changes and using accessory muscles for breathing. Vital signs reveal temperature 98.4, pulse 135, respirations 20, blood pressure 181/97. This was after my discussion regarding her status. The patient then did go into a heart rate of 180 irregular and then subsequently slowed down back to 70s and 80s. HEENT: Normocephalic. Face is cushingoid. NECK: Accessory muscle use. CHEST: Markedly decreased air flow. Bilateral expiratory wheeze, rhonchi. CARDIAC: Distant heart sounds S1, S2 with no gallops. Systolic murmur 2/6 left sternal border. ABDOMEN: Protuberant, soft. Bowel sounds active. EXTREMITIES: Reveal no edema. NEUROLOGIC: Awake, alert, oriented x3 with well-coordinated movements upper extremities. LABORATORY ASSESSMENT: Accu-Chek of 98 this morning. ASSESSMENT: 1. Acute respiratory failure. 2. End-stage respiratory functional status. 3. Atrial fibrillation and supraventricular tachycardia. 4. Severe generalized debility. 5. History of rheumatoid arthritis. 6. Iatrogenic [place] syndrome. PLAN: Continue present medical regimen. Patient's prognosis remains guarded. Again I have discussed with the patient regarding hospice care. I offered the patient to see if I could discuss her status with the family and she declined. GENI / JOY: [id number] /
[2018-08-25] MEDS: IPRATROPIUM-ALBUTEROL 3 ML NEB INHALATION SCH ×3 (03:32→11:56)
[2018-08-25] MEDS: PIPERACILLIN-TAZOBACTAM 3.375 GM in SODIUM CHLORIDE 0.9% 100 ML IVPB SCH ×2 (04:03→11:25)
[2018-08-25 05:40] LABS: Glucose,Whole Blood 93 mg/dL (75-99)
[2018-08-25] MEDS: INSULIN ASPART 100 UNIT/ML 1 ML 10 ML VIAL SQ SCH ×2 (06:04→12:21)
[2018-08-25] MEDS: HYDROcodone/APAP 5-325MG 1 EACH TAB PO PRN (06:08)
[2018-08-25] MEDS: FORMOTEROL FUMARATE 20 MCG/2 ML NEBU INHALATION SCH (07:57)
[2018-08-25] MEDS: BUDESONIDE 1 MG/2 ML NEBU INHALATION SCH (07:57)
[2018-08-25] MEDS: POTASSIUM CHLORIDE ER 20 MEQ TAB.ER PO SCH (08:10)
[2018-08-25] MEDS: CHOLECALCIFEROL 1,000 UNIT TAB PO SCH (08:10)
[2018-08-25] MEDS: DILTIAZEM ORAL 60 MG TAB PO SCH (08:10)
[2018-08-25] MEDS: METOPROLOL TARTRATE 50 MG TAB PO SCH (08:10)
[2018-08-25] MEDS: GABAPENTIN 100 MG CAP PO SCH (08:10)
[2018-08-25] MEDS: LORazepam 1 MG TAB PO PRN (08:10)
[2018-08-25] MEDS: predniSONE 20 MG TAB PO SCH (08:10)
[2018-08-25] MEDS: FUROSEMIDE 20 MG TAB PO SCH (08:10)
[2018-08-25] MEDS: APIXABAN 5 MG TAB PO SCH (08:10)
[2018-08-25] MEDS: MULTIVITAMINS, THERA 1 EACH TAB PO SCH (08:11)
[2018-08-25] MEDS: METOLAZONE 2.5 MG TAB PO SCH (08:11)
[2018-08-25] MEDS: guaiFENesin-DM 100-10MG/5ML 10 ML CUP PO SCH (08:11)
[2018-08-25] MEDS: THEOPHYLLINE 24 HOUR 400 MG CAP.ER.24H PO SCH (08:11)
[2018-08-25] MEDS: CYANOCOBALAMIN 500 MCG TAB PO SCH (08:11)
[2018-08-25] MEDS: SPIRONOLACTONE 25 MG TAB PO SCH (08:11)
[2018-08-25] MEDS: SENNOSIDES 8.6 MG TAB PO SCH (08:12)
[2018-08-25 08:54] LABS: HCT 45.8 % (34.0-46.0); HGB 14.5 gm/dL (11.4-16.0); MCH 29.2 pg (25.0-35.0); MCHC 31.6 g/dL (31.0-37.0); MCV 92.6 fL (80.0-100.0); Mean Platelet Volume 5.9; Platelet Count 294 k/uL (150-450); RBC 4.94 m/uL (3.80-5.40); RDW 14.5 % (11.5-15.5); WBC 14.9 k/uL (3.8-10.6)
[2018-08-25 09:02] LABS: Blood Urea Nitrogen 28 mg/dL (7-17); Calcium 9.3 mg/dL (8.4-10.2); Chloride 87 mmol/L (98-107); Glucose 94 mg/dL (74-99); Potassium 3.9 mmol/L (3.5-5.1); Sodium 134 mmol/L (137-145)
[2018-08-25 09:10] LABS: Anion Gap 5 mmol/L
[2018-08-25 09:21] LABS: Carbon Dioxide 42 mmol/L (22-30)
[2018-08-25] MEDS ORDERED: LORazepam 1 MG TAB PO PRN (09:23)
[2018-08-25] MEDS ORDERED: MORPHINE ORAL SOLN 10 MG/5 ML CUP PO PRN (10:07)
[2018-08-25 10:10] VITALS: BP 167/115; RESP 24
[2018-08-25 12:05] LABS: Glucose,Whole Blood 122 mg/dL (75-99)
[2018-08-25] MEDS: IPRATROPIUM-ALBUTEROL 3 ML NEB INHALATION PRN (16:06)
[2018-08-25 16:09] VITALS: PULSE 100
== END 2018-08-25 14:02 | disposition hospice, inpatient (51) | DRG 193 ==
LOC: EC 23:58 → 4SSUR 08-18 00:14 → 3SCARD 08-18 12:30
PROVIDERS: ADMIT Internal Medicine; ATTEND Internal Medicine
DX: J18.9 Pneumonia, unspecified organism (principal); J96.21 Acute and chronic respiratory failure with hypoxia; E24.2 Drug-induced Cushing's syndrome; I47.1 Supraventricular tachycardia; J98.11 Atelectasis; D17.5 Benign lipomatous neoplasm of intra-abdominal organs; E11.65 Type 2 diabetes mellitus with hyperglycemia; J43.9 Emphysema, unspecified; E78.5 Hyperlipidemia, unspecified; F41.9 Anxiety disorder, unspecified; I11.0 Hypertensive heart disease with heart failure; I27.20 Pulmonary hypertension, unspecified; I48.0 Paroxysmal atrial fibrillation; I50.9 Heart failure, unspecified; M06.9 Rheumatoid arthritis, unspecified; M19.90 Unspecified osteoarthritis, unspecified site; M40.204 Unspecified kyphosis, thoracic region; T38.0X5A Adverse effect of glucocorticoids and synthetic analogues, initial encounter; Y95 Nosocomial condition; Z51.5 Encounter for palliative care; Z74.01 Bed confinement status; Z79.01 Long term (current) use of anticoagulants; Z79.899 Other long term (current) drug therapy; Z80.3 Family history of malignant neoplasm of breast; Z82.3 Family history of stroke; Z82.49 Family history of ischemic heart disease and other diseases of the circulatory system; Z82.5 Family history of asthma and other chronic lower respiratory diseases; Z85.828 Personal history of other malignant neoplasm of skin; Z87.01 Personal history of pneumonia (recurrent); Z87.891 Personal history of nicotine dependence; Z99.81 Dependence on supplemental oxygen; Z98.42 Cataract extraction status, left eye; Z98.41 Cataract extraction status, right eye
CPT/HCPCS: 36415; 71045; 71046; 71250; 80048; 81001; 83735; 83880; 85025; 85027; 87040; 87070; 87205; 94640; 94760; 96365; 96366; 96367; 96368; 96375; 96376; 99285

== ENCOUNTER 2018-08-25 12:20 | Inpatient (IN) | payer MEDICAID ==
[2018-08-25] MEDS ORDERED: ONDANSETRON 4 MG/2 ML VIAL IVP PRN (13:04)
[2018-08-25] MEDS ORDERED: ACETAMINOPHEN SUPPOSITORY 650 MG SUPP RECTAL PRN (13:04)
[2018-08-25] MEDS ORDERED: BISACODYL 10 MG SUPP RECTAL PRN (13:11)
[2018-08-25] MEDS ORDERED: IPRATROPIUM-ALBUTEROL 3 ML NEB INHALATION PRN (13:22)
[2018-08-25] MEDS ORDERED: guaiFENesin-DM 100-10MG/5ML 10 ML CUP PO PRN (13:30)
[2018-08-25] MEDS ORDERED: SENNOSIDES 8.6 MG TAB PO PRN (13:38)
[2018-08-25] MEDS ORDERED: SCOPOLAMINE 1.5MG/72HR PATCH TRANSDERM SCH (14:00)
[2018-08-25] MEDS: DILTIAZEM ORAL 60 MG TAB PO SCH ×2 (15:33→22:02)
[2018-08-25] MEDS: GABAPENTIN 100 MG CAP PO SCH ×2 (15:33→22:02)
[2018-08-25] MEDS: LORazepam 2 MG/ML INJ IV PRN (15:33)
[2018-08-25] MEDS: MORPHINE SULFATE (100 MG/2 ML) 100 MG in SODIUM CHLORIDE 0.9% 100 ML IV SCH (15:34)
[2018-08-25] MEDS: IPRATROPIUM-ALBUTEROL 3 ML NEB INHALATION SCH ×2 (16:16→20:46)
[2018-08-25] MEDS: INSULIN ASPART (NovoLOG) 100 UNIT/ML VIAL SQ SCH ×2 (17:11→22:02)
[2018-08-25] MEDS: METOCLOPRAMIDE 10 MG TAB PO SCH (17:49)
--- NOTE | 2018-08-25 19:45 | P.PN ---
Subjective Progress Note Date: 08/25/18 Principal diagnosis: Acute exacerbation of severe end-stage oxygen-dependent chronic obstructive pulmonary disease complicated by by basilar pneumonia. Patient was seen today 08/25/2017 in follow-up on the selective care unit. She has continued to have ongoing issues with significant shortness of breath cough and congestion. Dyspneic with very minimal exertion. Maintaining O2 saturations in the 90s on 4 L/m per nasal cannula. His been maintained on DuoNeb inhalations, Pulmicort and Perforomist inhalations and IV Solu-Medrol. She has been slow to progress. She's been quite tired and weak. There is some discussion regarding possible hospice. Objective - Vital Signs Vital signs: Vital Signs Temp Pulse 100 08/25/18 16:22 Resp 28 H 08/25/18 16:00 BP Pulse Ox Intake & Output 08/25/18 08/25/18 08/26/18 06:59 18:59 06:59 Intake Total 2.142 Output Total 700 Balance -697.858 Weight 57.3 kg Intake: Intake, IV Titration 2.142 Amount Morphine Sulfate (100 mg/ 2.142 2 ml) 100 mg In Sodium Chloride 0.9% 100 ml @ 1 MG/HR 1.02 mls/hr IV . Q24H [facility] Rx#:[id number] Output: Urine 700 Uretheral (Alexis) 700 Other: Voiding Method Indwelling Catheter - Exam GENERAL EXAM: Alert, frail, dyspneic with minimal exertion and conversation, weak. On nasal O2. HEAD: Normocephalic. EYES: Normal reaction of pupils, equal size. NOSE: Clear with pink turbinates. THROAT: No erythema or exudates. NECK: No masses, no JVD. CHEST: No chest wall deformity. LUNGS: Equal air entry with a lateral end expiratory wheeze, diminished. CVS: S1 and S2 normal with no audible murmur, regular rhythm. ABDOMEN: No hepatosplenomegaly, normal bowel sounds, no guarding or rigidity. SPINE: No scoliosis or deformity SKIN: No rashes CENTRAL NERVOUS SYSTEM: No focal deficits, tone is normal in all 4 extremities. EXTREMITIES: There is no peripheral edema. No clubbing, no cyanosis. Peripheral pulses are intact. Assessment and Plan Assessment: Impression: #1 Acute on chronic hypoxic respiratory failure secondary to an acute exacerbation of severe oxygen dependent chronic obstructive pulmonary disease complicated by by basilar healthcare acquired pneumonia. #2 Atrial fibrillation anticoagulated with Eliquis. #3 Hypertension. #4 Hyperlipidemia. #5 Osteoarthritis. #6 Rheumatoid arthritis. #7 Former smoker greater than 40 years at 1 pack per day. Quit in July 2014. #8 Anxiety. #9 [facility] resident. Plan: The patient was seen and evaluated by Dr. De La Vega. He did have discussed options with the patient and family. Her overall prognosis remains quite poor. They have decided to place the patient in hospice care. I, the cosigning physician, performed a history & physical examination of the patient. Lungs sounds lateral end expiratory wheeze, diminished. Maintaining good O2 saturations in the 90s on 4 L/m per nasal cannula. I discussed the assessment and plan of care with my nurse practitioner, Chula Varma. I attest to the above note as dictated by her.
[2018-08-25 20:21] LABS: Glucose,Whole Blood 187 mg/dL (75-99)
[2018-08-25] MEDS: FORMOTEROL FUMARATE 20 MCG/2 ML NEBU INHALATION SCH (20:46)
[2018-08-25] MEDS: BUDESONIDE 1 MG/2 ML NEBU INHALATION SCH (20:46)
[2018-08-25] MEDS: APIXABAN 5 MG TAB PO SCH (22:02)
[2018-08-25] MEDS: METOPROLOL TARTRATE 50 MG TAB PO SCH (22:04)
[2018-08-26] MEDS: IPRATROPIUM-ALBUTEROL 3 ML NEB INHALATION SCH ×7 (01:27→22:58)
[2018-08-26 06:01] LABS: Glucose,Whole Blood 101 mg/dL (75-99)
[2018-08-26 07:25] VITALS: BP 159/103; TEMP 97.7
--- NOTE | 2018-08-26 07:50 | P.PN ---
Progress Note - Text The patient is a 68-year-old female who is a patient of Dr. Santamaria's for whom I am covering. Patient apparently has end-stage COPD with chronic respiratory failure. Underlying exacerbation bi-basilar pneumonia. The patient has been placed in hospice care. This morning the daughter is present in the room with her. She was easily aroused. She denies any pain or new complaints at this time. Temperature was 97.7 with a pulse of 81 and respirations 28. Blood pressure 159/103 and she is 93% saturated on 3 L nasal cannula. Lungs diffusely sound tight with expiratory high-pitched wheeze. Heart tones were regular. Abdomen was soft. No apparent focal episodes noted. Discussed with patient and daughter that if any need should arise the commode to nurses know and they can contact me for further orders until Dr. Santamaria returns. Pulmonary medicine note regarded.
[2018-08-26] MEDS: FORMOTEROL FUMARATE 20 MCG/2 ML NEBU INHALATION SCH ×2 (08:01→20:05)
[2018-08-26] MEDS: BUDESONIDE 1 MG/2 ML NEBU INHALATION SCH ×2 (08:06→19:44)
[2018-08-26] MEDS: predniSONE 20 MG TAB PO SCH (08:28)
[2018-08-26] MEDS: DILTIAZEM ORAL 60 MG TAB PO SCH ×3 (08:28→19:54)
[2018-08-26] MEDS: METOCLOPRAMIDE 10 MG TAB PO SCH ×3 (08:28→16:57)
[2018-08-26] MEDS: POTASSIUM CHLORIDE ER 20 MEQ TAB.ER PO SCH (08:29)
[2018-08-26] MEDS: METOPROLOL TARTRATE 50 MG TAB PO SCH ×2 (08:29→19:54)
[2018-08-26] MEDS: FUROSEMIDE 20 MG TAB PO SCH (08:29)
[2018-08-26] MEDS: APIXABAN 5 MG TAB PO SCH ×2 (08:29→19:53)
[2018-08-26] MEDS: GABAPENTIN 100 MG CAP PO SCH ×3 (08:29→19:54)
[2018-08-26] MEDS: INSULIN ASPART (NovoLOG) 100 UNIT/ML VIAL SQ SCH ×4 (08:29→19:54)
[2018-08-26] MEDS: SPIRONOLACTONE 25 MG TAB PO SCH (08:29)
[2018-08-26] MEDS: LORazepam 2 MG/ML INJ IV PRN ×2 (08:29→20:19)
[2018-08-26] MEDS: GLYCOPYRROLATE 0.2 MG/ML 2 ML VIAL IVP SCH ×3 (15:12→22:48)
[2018-08-26] MEDS: ATROPINE OPHTH SOLN 1% 5ML BTL SUBLINGUAL PRN ×2 (15:14→18:40)
[2018-08-26] MEDS: MORPHINE SULFATE (100 MG/2 ML) 100 MG in SODIUM CHLORIDE 0.9% 100 ML IV SCH (16:49)
[2018-08-27] MEDS: IPRATROPIUM-ALBUTEROL 3 ML NEB INHALATION SCH ×6 (02:51→22:51)
[2018-08-27] MEDS: GLYCOPYRROLATE 0.2 MG/ML 2 ML VIAL IVP SCH ×6 (05:26→23:30)
[2018-08-27] MEDS: INSULIN ASPART (NovoLOG) 100 UNIT/ML VIAL SQ SCH ×4 (05:27→20:12)
[2018-08-27] MEDS: METOCLOPRAMIDE 10 MG TAB PO SCH ×3 (05:27→17:07)
[2018-08-27] MEDS: LORazepam 2 MG/ML INJ IV PRN ×3 (06:28→17:29)
[2018-08-27] MEDS: FORMOTEROL FUMARATE 20 MCG/2 ML NEBU INHALATION SCH ×2 (07:40→19:44)
[2018-08-27] MEDS: BUDESONIDE 1 MG/2 ML NEBU INHALATION SCH ×2 (07:40→19:44)
[2018-08-27] MEDS ORDERED: METOLAZONE 2.5 MG TAB PO SCH (09:00)
[2018-08-27] MEDS: APIXABAN 5 MG TAB PO SCH ×2 (10:04→20:12)
[2018-08-27] MEDS: DILTIAZEM ORAL 60 MG TAB PO SCH ×3 (10:04→20:13)
[2018-08-27] MEDS: GABAPENTIN 100 MG CAP PO SCH ×3 (10:05→20:13)
[2018-08-27] MEDS: FUROSEMIDE 20 MG TAB PO SCH (10:05)
[2018-08-27] MEDS: predniSONE 20 MG TAB PO SCH (10:06)
[2018-08-27] MEDS: POTASSIUM CHLORIDE ER 20 MEQ TAB.ER PO SCH (10:06)
[2018-08-27] MEDS: METOPROLOL TARTRATE 50 MG TAB PO SCH ×2 (10:06→20:13)
[2018-08-27] MEDS: SPIRONOLACTONE 25 MG TAB PO SCH (10:07)
[2018-08-27] MEDS: ATROPINE OPHTH SOLN 1% 5ML BTL SUBLINGUAL PRN (18:07)
[2018-08-27] MEDS: MORPHINE SULFATE (100 MG/2 ML) 100 MG in SODIUM CHLORIDE 0.9% 100 ML IV SCH (18:10)
[2018-08-28] MEDS: GLYCOPYRROLATE 0.2 MG/ML 2 ML VIAL IVP SCH ×2 (02:27→06:36)
[2018-08-28] MEDS: LORazepam 2 MG/ML INJ IV PRN (02:39)
[2018-08-28] MEDS: METOCLOPRAMIDE 10 MG TAB PO SCH (03:40)
[2018-08-28] MEDS: INSULIN ASPART (NovoLOG) 100 UNIT/ML VIAL SQ SCH (03:40)
[2018-08-28] MEDS: IPRATROPIUM-ALBUTEROL 3 ML NEB INHALATION SCH (04:47)
[2018-08-28 04:57] VITALS: PULSE 91
[2018-08-28 05:29] VITALS: RESP 12
[2018-08-28] MEDS ORDERED: LISINOPRIL 20 MG TAB PO SCH (09:00)
== END 2018-08-28 09:58 | disposition expired | DRG 951 ==
LOC: 3SCARD 14:08
PROVIDERS: ADMIT Internal Medicine; ATTEND Internal Medicine
DX: Z51.5 Encounter for palliative care (principal); J18.9 Pneumonia, unspecified organism; J96.21 Acute and chronic respiratory failure with hypoxia; J44.0 Chronic obstructive pulmonary disease with (acute) lower respiratory infection; J44.1 Chronic obstructive pulmonary disease with (acute) exacerbation; E78.5 Hyperlipidemia, unspecified; F41.9 Anxiety disorder, unspecified; I10 Essential (primary) hypertension; I48.91 Unspecified atrial fibrillation; M06.9 Rheumatoid arthritis, unspecified; M19.90 Unspecified osteoarthritis, unspecified site; Y95 Nosocomial condition; Z79.01 Long term (current) use of anticoagulants; Z87.891 Personal history of nicotine dependence; Z99.81 Dependence on supplemental oxygen
CPT/HCPCS: 94640